=== PATIENT | female | born 1940 | race Caucasian/White ===

== ENCOUNTER 2017-01-06 12:32 | Inpatient (IN) | payer MEDICARE, OTHER ==
[~2017-01-06] VITALS: Ht 165.1 cm; Wt 83.9 kg
[2017-01-06] VITALS (11 sets, daily range): BP systolic 115–147; BP diastolic 55–70
[~2017-01-06 12:32] MED LIST: ACET-907 PO; ALBU18HF2 IH; BISO5TAB2 PO; BLOO-697 IN; BUME1TAB4 PO; CLON0.1T PO; CLON0.5T4 PO; FAMO20TA8 PO; FERR325T28 PO; FLUT1DIS5 IH; FOLI1TAB16 PO; GABA-532 PO; GLIM2TAB2 PO; GUAI118S20 PO; IBUP-1955 PO; IPRA0.2S9 IH; MECL-102 PO; MULT-24 PO; PRED10TA PO; PREG75CA PO; SITA100T PO; ZOLP10TA6 PO
[2017-01-06 13:48] LABS: BASOPHILS # (AUTO) 0.8 /CMM (0.0-0.2); BASOPHILS % (AUTO) 4.5 % (0.0-2.0); DIFF TOTAL % 100 %; EOSINOPHILS # (AUTO) 0.1 /CMM (0.0-0.7); EOSINOPHILS % (AUTO) 0.8 % (0.0-6.0); LYMPHOCYTES % (AUTO) 16.7 % (20.0-44.0); MEAN CORPUSCULAR HEMOGLOBIN 29 PG (26.0-33.0); MEAN CORPUSCULAR HGB CONC 32 g/dl (31.0-36.0); MEAN CORPUSCULAR VOLUME 89 fL (82-100); MONOCYTES # (AUTO) 0.8 /CMM (0.1-1.30); MONOCYTES % (AUTO) 4.6 % (2.0-12.0); NEUTROPHILS # (AUTO) 13.1 /CMM (1.8-8.9); NEUTROPHILS % (AUTO) 73.4 % (43.0-81.0); PLATELET COUNT (AUTO) 561 /CMM (150-450); RED BLOOD CELL COUNT(AUTO) 2.01 MIL/uL (4.0-5.2); WHITE BLOOD COUNT (AUTO) 17.8 K/uL (4.3-11.0)
[2017-01-06 13:49] LABS: HEMOGLOBIN 5.8 g/dL (11.5-14.8)
[2017-01-06 13:50] LABS: HEMATOCRIT 18 % (33-45)
[2017-01-06 13:52] LABS: ANION GAP 13 (5-14); CALCIUM, SERUM 8.6 mg/dL (8.5-10.1); CARBON DIOXIDE 28 mmol/L (21-32); CHLORIDE 98 mmol/L (98-107); CREATININE 1.3 mg/dL (0.6-1.3); GLUCOSE 207 mg/dL (74-106); POTASSIUM 4.9 mmol/L (3.5-5.1); SODIUM SERUM 134 mmol/L (136-145); UREA NITROGEN, BLOOD 29 mg/dL (7-18)
[2017-01-06 14:01] LABS: TROPONIN I < 0.017 ng/mL (0.00-0.056)
[2017-01-06] MEDS ORDERED: PANTOPRAZOLE 40 MG VIAL ONE (14:10)
[2017-01-06] MEDS ORDERED: PANTOPRAZOLE 40 MG VIAL IV ONE (14:30)
[2017-01-06 14:33] LABS: INR 0.92 (0.87-1.13); PROTHROMBIN TIME 9.7 SECS (9.5-12.7)
[2017-01-06] MEDS ORDERED: POTA-88 PO (14:58)
[2017-01-06] MEDS ORDERED: HYDR-3326 PO (14:58)
[2017-01-06] MEDS ORDERED: VALS1TAB52 PO (14:58)
[2017-01-06] MEDS ORDERED: FURO40TA5 PO (14:58)
[2017-01-06] MEDS ORDERED: MELO-270 PO (14:58)
[2017-01-06] MEDS ORDERED: PILO7.5T2 PO (14:58)
[2017-01-06] MEDS ORDERED: IPRA3AMP IH (14:58)
[2017-01-06] MEDS ORDERED: BLOOD IV SET 1 EA INFUS.SET MC ONE ×2 (16:07→21:19)
[2017-01-06] MEDS ORDERED: IV NS 0.9% 250 ML IV ONE ×2 (16:07→21:19)
[2017-01-06] MEDS: MORPHINE SULFATE INJ 2 MG/ML DISP.SYRIN IV PRN (17:09)
[2017-01-06 17:36] LABS: LYMPHOCYTES % (MANUAL) 18 % (16-48)
[2017-01-06 17:43] LABS: PARTIAL THROMBOPLASTIN TIME < 20 SEC (23-34)
[2017-01-06] MEDS ORDERED: Z GUARD REMEDY 2 OZ OINT TP PRN (19:30)
[2017-01-06] MEDS ORDERED: MAGNESIUM HYDROXIDE 30 ML UDC PO PRN (19:30)
[2017-01-06] MEDS ORDERED: ONDANSETRON HCL/PF 4 MG/2 ML VIAL IVP PRN (19:30)
[2017-01-06] MEDS ORDERED: ACETAMINOPHEN 325 MG TABLET PO PRN (19:30)
[2017-01-06] MEDS ORDERED: MAG HYDROX/AL HYDROX/SIMETH 30 ML UDC PO PRN (19:30)
[2017-01-06] MEDS ORDERED: Medication Not On Formulary EA (Ipratropium/Albuterol Sulfate (Duoneb 2.5-0.5 Mg/3 Ml So IH PRN (20:00)
[2017-01-06] MEDS ORDERED: CLONIDINE HCL 0.1 MG TABLET PO PRN (20:00)
[2017-01-06] MEDS ORDERED: LORAZEPAM INJ 2 MG/ML VIAL ONE (22:20)
[2017-01-06] MEDS: LORAZEPAM INJ 2 MG/ML VIAL IV PRN (23:49)
[2017-01-07] VITALS (11 sets, daily range): BP systolic 138–166; BP diastolic 55–87
[2017-01-07] MEDS ORDERED: PANTOPRAZOLE 40 MG VIAL ONE (02:21)
[2017-01-07] MEDS: PANTOPRAZOLE 40 MG VIAL IV SCH ×3 (02:27→21:38)
[2017-01-07] MEDS ORDERED: PANTOPRAZOLE 40 MG TABLET.DR PO SCH (07:30)
[2017-01-07 07:41] LABS: BASOPHILS % (AUTO) 0.1 % (0.0-2.0); DIFF TOTAL % 100 %; EOSINOPHILS % (AUTO) 0.2 % (0.0-6.0); HEMATOCRIT 30 % (33-45); HEMOGLOBIN 9.9 g/dL (11.5-14.8); LYMPHOCYTES # (AUTO) 1.7 /CMM (0.8-4.8); LYMPHOCYTES % (AUTO) 12.1 % (20.0-44.0); MEAN CORPUSCULAR HEMOGLOBIN 31 PG (26.0-33.0); MEAN CORPUSCULAR HGB CONC 33 g/dl (31.0-36.0); MEAN CORPUSCULAR VOLUME 91 fL (82-100); MONOCYTES # (AUTO) 1.1 /CMM (0.1-1.30); MONOCYTES % (AUTO) 7.5 % (2.0-12.0); NEUTROPHILS # (AUTO) 11.4 /CMM (1.8-8.9); NEUTROPHILS % (AUTO) 80.1 % (43.0-81.0); PLATELET COUNT (AUTO) 450 /CMM (150-450); RED BLOOD CELL COUNT(AUTO) 3.23 MIL/uL (4.0-5.2); WHITE BLOOD COUNT (AUTO) 14.2 K/uL (4.3-11.0)
[2017-01-07 08:00] LABS: CALCIUM, SERUM 8.7 mg/dL (8.5-10.1); PHOSPHORUS 3.2 mg/dL (2.5-4.9); POTASSIUM 4.6 mmol/L (3.5-5.1)
[2017-01-07] MEDS: clonazePAM 0.5 MG TABLET PO SCH ×3 (09:00→16:39)
[2017-01-07] MEDS: predniSONE 10 MG TABLET PO SCH ×2 (09:00→16:39)
[2017-01-07] MEDS ORDERED: Medication Not On Formulary EA (Valsartan/Hydrochlorothiazide (Diovan Hct 320-12.5 Mg Ta PO SCH (09:00)
[2017-01-07] MEDS ORDERED: FLUTICASONE/SALMETEROL DISKUS IH SCH (09:00)
[2017-01-07] MEDS ORDERED: MELOXICAM 7.5 MG TABLET PO SCH (09:00)
[2017-01-07] MEDS: MORPHINE SULFATE INJ 2 MG/ML DISP.SYRIN IV PRN ×2 (09:50→15:05)
[2017-01-07] MEDS: BLOOD SUGAR DIAGNOSTIC 1 EACH STRIP IN SCH ×2 (10:05→16:40)
[2017-01-07 10:14] LABS: THYROID STIMULATING HORMONE 0.511 uIU/mL (0.358-3.74); URIC ACID 7.1 mg/dL (2.6-7.2)
[2017-01-07 13:35] LABS: IRON, SERUM 45 ug/dl (50-175); PERCENT SATURATION 12 % (14-33); TOTAL IRON BINDING CAPACITY 379 ug/dl (250-450)
[2017-01-07] MEDS ORDERED: PEG 3350/NA SULF,BICARB,CL/KCL 4,000 ML BOTTLE PO ONE (14:00)
[2017-01-07] MEDS: BISOPROLOL FUMARATE 5 MG TABLET PO SCH ×2 (14:19→16:39)
[2017-01-07] MEDS: FERROUS SULFATE (325 MG) 325 MG/TAB TABLET PO SCH ×2 (14:20→16:39)
[2017-01-07] MEDS: MULTIVITAMINS,THERAPEUTIC 1 UDTAB TABLET PO SCH (14:21)
[2017-01-07] MEDS: HYDROCHLOROTHIAZIDE 25 MG TABLET PO SCH (14:21)
[2017-01-07] MEDS: SITAGLIPTIN PHOSPHATE 50 MG TABLET PO SCH (14:22)
[2017-01-07] MEDS: VALSARTAN 80 MG TABLET PO SCH (14:22)
[2017-01-07] MEDS: IPRATROPIUM NEB FS 0.5 MG/2.5 ML AMPUL.NEB NEB SCH ×2 (15:50→20:03)
[2017-01-07] MEDS: ALBUTEROL FS 2.5 MG/3 ML VIAL.NEB NEB SCH ×2 (15:50→20:04)
[2017-01-07] MEDS: FLUTICASONE/SALMETEROL DISKUS IH SCH (16:40)
[2017-01-07] MEDS ORDERED: PILOCARPINE HCL 5 MG TABLET PO SCH ×2 (17:00)
[2017-01-07] MEDS: ZOLPIDEM TARTRATE 5 MG TABLET PO PRN (22:30)
[2017-01-07] MEDS: HYDROCODONE/APAP 5/325MG 1 EACH TABLET PO PRN (23:45)
[2017-01-08] VITALS (10 sets, daily range): BP systolic 126–161; BP diastolic 54–82
[2017-01-08] MEDS: MORPHINE SULFATE INJ 2 MG/ML DISP.SYRIN IV PRN ×4 (01:00→22:48)
[2017-01-08] MEDS: ALBUTEROL FS 2.5 MG/3 ML VIAL.NEB NEB SCH ×4 (01:33→19:35)
[2017-01-08] MEDS: IPRATROPIUM NEB FS 0.5 MG/2.5 ML AMPUL.NEB NEB SCH ×4 (01:33→19:35)
[2017-01-08] MEDS: LORAZEPAM INJ 2 MG/ML VIAL IV PRN (01:53)
[2017-01-08 07:10] LABS: CALCIUM, SERUM 9.1 mg/dL (8.5-10.1); CREATININE 0.9 mg/dL (0.6-1.3); POTASSIUM 3.8 mmol/L (3.5-5.1)
[2017-01-08 08:20] LABS: BASOPHILS % (AUTO) 0.4 % (0.0-2.0); DIFF TOTAL % 100 %; EOSINOPHILS % (AUTO) 0.2 % (0.0-6.0); HEMATOCRIT 32 % (33-45); HEMOGLOBIN 10.6 g/dL (11.5-14.8); LYMPHOCYTES # (AUTO) 1.5 /CMM (0.8-4.8); LYMPHOCYTES % (AUTO) 13.1 % (20.0-44.0); MEAN CORPUSCULAR HEMOGLOBIN 30 PG (26.0-33.0); MEAN CORPUSCULAR HGB CONC 33 g/dl (31.0-36.0); MEAN CORPUSCULAR VOLUME 91 fL (82-100); MONOCYTES % (AUTO) 8.6 % (2.0-12.0); NEUTROPHILS # (AUTO) 9.2 /CMM (1.8-8.9); NEUTROPHILS % (AUTO) 77.7 % (43.0-81.0); PLATELET COUNT (AUTO) 439 /CMM (150-450); RED BLOOD CELL COUNT(AUTO) 3.52 MIL/uL (4.0-5.2); WHITE BLOOD COUNT (AUTO) 11.8 K/uL (4.3-11.0)
[2017-01-08] MEDS: FLUTICASONE/SALMETEROL DISKUS IH SCH ×2 (08:42→16:34)
[2017-01-08] MEDS: PANTOPRAZOLE 40 MG VIAL IV SCH ×2 (08:42→21:05)
[2017-01-08] MEDS: FERROUS SULFATE (325 MG) 325 MG/TAB TABLET PO SCH ×2 (09:00→16:10)
[2017-01-08] MEDS: VALSARTAN 80 MG TABLET PO SCH (09:00)
[2017-01-08] MEDS: BISOPROLOL FUMARATE 5 MG TABLET PO SCH ×2 (09:00→16:35)
[2017-01-08] MEDS: SITAGLIPTIN PHOSPHATE 50 MG TABLET PO SCH (09:00)
[2017-01-08] MEDS: HYDROCHLOROTHIAZIDE 25 MG TABLET PO SCH (09:00)
[2017-01-08] MEDS: clonazePAM 0.5 MG TABLET PO SCH ×3 (09:00→16:10)
[2017-01-08] MEDS: predniSONE 10 MG TABLET PO SCH ×2 (09:00→16:10)
[2017-01-08] MEDS: MULTIVITAMINS,THERAPEUTIC 1 UDTAB TABLET PO SCH (09:00)
[2017-01-08] MEDS: BLOOD SUGAR DIAGNOSTIC 1 EACH STRIP IN SCH ×2 (09:25→16:47)
[2017-01-08] MEDS: SUCRALFATE 1 G/10 ML UDC PO SCH ×2 (16:30→21:05)
[2017-01-08] MEDS: ZOLPIDEM TARTRATE 5 MG TABLET PO PRN (21:05)
[2017-01-09] MEDS: LORAZEPAM INJ 2 MG/ML VIAL IV PRN (00:50)
[2017-01-09] MEDS: ALBUTEROL FS 2.5 MG/3 ML VIAL.NEB NEB SCH ×2 (01:43→07:41)
[2017-01-09] MEDS: IPRATROPIUM NEB FS 0.5 MG/2.5 ML AMPUL.NEB NEB SCH ×2 (01:44→07:41)
[2017-01-09] MEDS: MORPHINE SULFATE INJ 2 MG/ML DISP.SYRIN IV PRN (03:50)
[2017-01-09] MEDS: HYDROCODONE/APAP 5/325MG 1 EACH TABLET PO PRN (05:35)
[2017-01-09 06:34] LABS: DIFF TOTAL % 100 %; EOSINOPHILS % (AUTO) 0.3 % (0.0-6.0); HEMATOCRIT 29 % (33-45); HEMOGLOBIN 9.7 g/dL (11.5-14.8); LYMPHOCYTES # (AUTO) 1.2 /CMM (0.8-4.8); LYMPHOCYTES % (AUTO) 10.6 % (20.0-44.0); MEAN CORPUSCULAR HEMOGLOBIN 31 PG (26.0-33.0); MEAN CORPUSCULAR HGB CONC 33 g/dl (31.0-36.0); MEAN CORPUSCULAR VOLUME 92 fL (82-100); MONOCYTES # (AUTO) 0.7 /CMM (0.1-1.30); MONOCYTES % (AUTO) 6.1 % (2.0-12.0); NEUTROPHILS # (AUTO) 9.5 /CMM (1.8-8.9); PLATELET COUNT (AUTO) 396 /CMM (150-450); RED BLOOD CELL COUNT(AUTO) 3.19 MIL/uL (4.0-5.2); WHITE BLOOD COUNT (AUTO) 11.5 K/uL (4.3-11.0)
[2017-01-09 08:00] VITALS: BP 149/65
[2017-01-09] MEDS: BISOPROLOL FUMARATE 5 MG TABLET PO SCH (09:00)
[2017-01-09] MEDS: SITAGLIPTIN PHOSPHATE 50 MG TABLET PO SCH (09:00)
[2017-01-09] MEDS: FLUTICASONE/SALMETEROL DISKUS IH SCH (09:20)
[2017-01-09] MEDS: MULTIVITAMINS,THERAPEUTIC 1 UDTAB TABLET PO SCH (09:21)
[2017-01-09] MEDS: FERROUS SULFATE (325 MG) 325 MG/TAB TABLET PO SCH (09:21)
[2017-01-09] MEDS: predniSONE 10 MG TABLET PO SCH (09:21)
[2017-01-09] MEDS: HYDROCHLOROTHIAZIDE 25 MG TABLET PO SCH (09:21)
[2017-01-09 09:22] VITALS: BP 149/65
[2017-01-09] MEDS: clonazePAM 0.5 MG TABLET PO SCH (09:22)
[2017-01-09] MEDS: VALSARTAN 80 MG TABLET PO SCH (09:22)
[2017-01-09] MEDS: SUCRALFATE 1 G/10 ML UDC PO SCH ×2 (09:23→12:40)
[2017-01-09] MEDS: PANTOPRAZOLE 40 MG VIAL IV SCH (09:23)
[2017-01-09] MEDS: BLOOD SUGAR DIAGNOSTIC 1 EACH STRIP IN SCH (09:23)
== END 2017-01-09 13:15 | disposition home health service (06) | DRG 377 ==
LOC: ER 12:35 → TELE 14:51 → MED 01-07 14:45
PROVIDERS: ADMIT Family Medicine; ATTEND Family Medicine
PROC: 30233N1 Transfusion of Nonautologous Red Blood Cells into Peripheral Vein, Percutaneous Approach (ICD-10-PCS; 2017-01-06)
PROC: 0DB68ZX Excision of Stomach, Via Natural or Artificial Opening Endoscopic, Diagnostic (ICD-10-PCS; principal; 2017-01-08 12:31)
PROC: 0DBH8ZX Excision of Cecum, Via Natural or Artificial Opening Endoscopic, Diagnostic (ICD-10-PCS; 2017-01-08 12:31)
DX: K25.4 Chronic or unspecified gastric ulcer with hemorrhage (principal); N17.0 Acute kidney failure with tubular necrosis; D62 Acute posthemorrhagic anemia; Z87.11 Personal history of peptic ulcer disease; F41.9 Anxiety disorder, unspecified; F32.9 Major depressive disorder, single episode, unspecified; E11.9 Type 2 diabetes mellitus without complications; E03.9 Hypothyroidism, unspecified; E66.9 Obesity, unspecified; J44.9 Chronic obstructive pulmonary disease, unspecified; I10 Essential (primary) hypertension; D72.829 Elevated white blood cell count, unspecified; G89.29 Other chronic pain; J45.909 Unspecified asthma, uncomplicated; M19.90 Unspecified osteoarthritis, unspecified site; Z68.30 Body mass index [BMI] 30.0-30.9, adult; R29.6 Repeated falls
CPT/HCPCS: 36415; 71010-TC; 80048-TC; 80061-TC; 82378; 82728-TC; 82746; 82962-TC; 83540-TC; 83615-TC; 83735-TC; 84100-TC; 84443-TC; 84484-TC; 84550-TC; 85025-TC; 85045-TC; 85730-TC; 86850-TC; 86921-TC; 87081-TC; 88305-TC; 88313-TC; 88342; A4606; C9113; J2060; J2270; J7050; P9016-BL; Z7610

== ENCOUNTER 2017-02-07 06:14 | Emergency (ER) | payer MEDICARE, OTHER ==
[~2017-02-07] VITALS: Ht 160 cm; Wt 71.2 kg
[~2017-02-07 06:14] MED LIST changes: -ACET-907 PO; -ALBU18HF2 IH; -FAMO20TA8 PO; -FOLI1TAB16 PO; -GABA-532 PO; -GLIM2TAB2 PO; -GUAI118S20 PO; +HYDR-3326 PO; -IBUP-1955 PO; -IPRA0.2S9 IH; +IPRA3AMP IH; -MECL-102 PO; +PILO7.5T2 PO; +POTA-88 PO; -PREG75CA PO; +VALS1TAB52 PO; -ZOLP10TA6 PO
--- NOTE | 2017-02-07 06:14 | NUR ---
BB FAMILY MEMBER FROM HOME FOR LEFT CALF PAIN SINCE 3AM TODAY. NAD NOTED. PT AAO X4, DOMINICAN SPEAKER, FAMILY AT BEDSIDE. PT PLACED IN GOWN AND MONITOR. DR DALE AT BEDSIDE FOR EVAL.
--- NOTE | 2017-02-07 06:55 | NUR ---
DR. DALE IS AT THE BEDSIDE.
--- NOTE | 2017-02-07 07:05 | NUR ---
REPORT GIVEN TO ROSSY LEO FOR AUGUST.
--- NOTE | 2017-02-07 07:13 | NUR ---
CALLED RADIOLOGY FOR VENOUS DUPLEX
--- NOTE | 2017-02-07 07:14 | NUR ---
REED POLISHER ETA: 1 HOUR
[2017-02-07 08:24] LABS: BASOPHILS % (AUTO) 0.4 % (0.0-2.0); HEMATOCRIT 31 % (33-45); HEMOGLOBIN 10.4 g/dL (11.5-14.8); LYMPHOCYTES % (AUTO) 9.1 % (20.0-44.0); MEAN CORPUSCULAR HEMOGLOBIN 29 PG (26.0-33.0); MEAN CORPUSCULAR HGB CONC 33 g/dl (31.0-36.0); MEAN CORPUSCULAR VOLUME 88 fL (82-100); MONOCYTES # (AUTO) 0.6 /CMM (0.1-1.30); MONOCYTES % (AUTO) 5.2 % (2.0-12.0); NEUTROPHILS # (AUTO) 9.2 /CMM (1.8-8.9); NEUTROPHILS % (AUTO) 85.3 % (43.0-81.0); PLATELET COUNT (AUTO) 352 /CMM (150-450); RDW COEFFICIENT OF VARIATION 15.9 (11.5-15.0); RED BLOOD CELL COUNT(AUTO) 3.56 MIL/uL (4.0-5.2); WHITE BLOOD COUNT (AUTO) 10.8 K/uL (4.3-11.0)
[2017-02-07 08:34] LABS: CALCIUM, SERUM 9.1 mg/dL (8.5-10.1); CARBON DIOXIDE 30 mmol/L (21-32); CHLORIDE 93 mmol/L (98-107); CREATININE 0.9 mg/dL (0.6-1.3); GLUCOSE 134 mg/dL (74-106); POTASSIUM 3.7 mmol/L (3.5-5.1); SODIUM SERUM 129 mmol/L (136-145); UREA NITROGEN, BLOOD 12 mg/dL (7-18)
[2017-02-07 08:41] LABS: TROPONIN I < 0.017 ng/mL (0.00-0.056)
[2017-02-07 08:46] LABS: ALANINE AMINOTRANSFERASE 21 U/L (12-78); ALBUMIN 3.3 g/dL (3.4-5.0); ALKALINE PHOSPHATASE 57 U/L (46-116); ASPARTATE AMINOTRANSFERASE 11 U/L (15-37); B-TYPE NATRIURETIC PEPTIDE 775 PG/ML (0-125); BILIRUBIN,DIRECT 0.1 mg/dL (0.0-0.2); BILIRUBIN,TOTAL 0.3 mg/dL (0.2-1.0); INR 0.93 (0.87-1.13); PROTHROMBIN TIME 9.9 SECS (9.5-12.7); TOTAL PROTEIN, SERUM 6.7 g/dL (6.4-8.2)
--- NOTE | 2017-02-07 08:55 | NUR ---
US DOPPLER AT BEDSIDE.
[2017-02-07] MEDS ORDERED: LORAZEPAM 1 MG TABLET ONE (09:00)
[2017-02-07] MEDS ORDERED: LORAZEPAM 0.5 MG TABLET PO ONE (09:00)
[2017-02-07 09:04] LABS: APPEARANCE,URINE CLEAR (CLEAR); BILIRUBIN,URINE NEGATIVE (NEGATIVE); BLOOD, URINE NEGATIVE Ery/uL (NEGATIVE); COLOR,URINE YELLOW (YELLOW); KETONES,URINE NEGATIVE (NEGATIVE); LEUKOCYTE ESTERASE ,URINE TRACE (NEGATIVE); NITRITE, URINE NEGATIVE (NEGATIVE); PH,URINE 6.5 (5.0-8.0); PROTEIN,URINE NEGATIVE (NEGATIVE); UGLUCOSE NEGATIVE (NEGATIVE); UROBILINOGEN,URINE 0.2 EU/dL (0.2)
[2017-02-07 09:10] LABS: ADD URINE CULTURE NO; BACTERIA,URINE None seen /HPF (None Seen); RBC,URINE NONE SEEN /HPF (0-2); SQUAMOUS EPITHELIAL CELL,UR Few /HPF (None Seen); WBC,URINE 0-2 /HPF (0-3)
[2017-02-07] MEDS ORDERED: FUROSEMIDE 40 MG/4 ML VIAL IV ONE (09:30)
[2017-02-07] MEDS ORDERED: FUROSEMIDE 40 MG/4 ML VIAL ONE (09:33)
[2017-02-07 09:51] VITALS: BP 152/67
== END 2017-02-07 10:09 | disposition home or self-care (01) ==
LOC: ER 06:14
DX: M79.89 Other specified soft tissue disorders (principal); M79.605 Pain in left leg; D64.9 Anemia, unspecified; I10 Essential (primary) hypertension; I50.9 Heart failure, unspecified; K21.9 Gastro-esophageal reflux disease without esophagitis; M19.90 Unspecified osteoarthritis, unspecified site
CPT/HCPCS: 36415; 71010-TC; 80048-TC; 80076-TC; 81000-TC; 83880; 84484-TC; 85025-TC; 85730-TC; 93971-TC; A4606; J1940; Z7610

== ENCOUNTER 2017-02-19 07:33 | Inpatient (IN) | payer MEDICARE, OTHER ==
[~2017-02-19] VITALS: Ht 167.6 cm; Wt 63.0 kg
--- NOTE | 2017-02-19 07:33 | NUR ---
PT BIB FAMILY C/O OF SHORTNESS OF BREATH SINCE LAST NIGHT. PT CANT SLEEP DUE TO SOB. PT AMBULATORY. PLACED ON MONITOR. VSS. AWAITING MD ORDER.
--- NOTE | 2017-02-19 08:20 | NUR ---
dr roque called to ICU, verbal order to start HHN, alb=5/atrovent=.5
[2017-02-19] MEDS ORDERED: ALBUTEROL FS 2.5 MG/3 ML VIAL.NEB ONE (08:22)
[2017-02-19] MEDS ORDERED: IPRATROPIUM NEB FS 0.5 MG/2.5 ML AMPUL.NEB ONE (08:22)
[2017-02-19] MEDS ORDERED: IPRATROPIUM NEB FS 0.5 MG/2.5 ML AMPUL.NEB NEB ONE (09:00)
[2017-02-19] MEDS ORDERED: ALBUTEROL FS 2.5 MG/0.5 ML VIAL.NEB NEB ONE (09:00)
[2017-02-19] MEDS ORDERED: ASPIRIN 325 MG TABLET ONE (09:02)
[2017-02-19] MEDS ORDERED: predniSONE 20 MG TABLET ONE (09:03)
--- NOTE | 2017-02-19 09:15 | NUR ---
LAB AT BEDSIDE COLLECTING BLOOD SAMPLE
--- NOTE | 2017-02-19 09:26 | NUR ---
XRAY AT BEDSIDE
[2017-02-19 09:30] LABS: BASOPHILS # (AUTO) 0.1 /CMM (0.0-0.2); BASOPHILS % (AUTO) 0.4 % (0.0-2.0); EOSINOPHILS % (AUTO) 0.1 % (0.0-6.0); HEMATOCRIT 33 % (33-45); HEMOGLOBIN 10.6 g/dL (11.5-14.8); LYMPHOCYTES # (AUTO) 1.2 /CMM (0.8-4.8); LYMPHOCYTES % (AUTO) 7.7 % (20.0-44.0); MEAN CORPUSCULAR HEMOGLOBIN 29 PG (26.0-33.0); MEAN CORPUSCULAR HGB CONC 33 g/dl (31.0-36.0); MEAN CORPUSCULAR VOLUME 89 fL (82-100); MONOCYTES # (AUTO) 0.2 /CMM (0.1-1.30); MONOCYTES % (AUTO) 1.3 % (2.0-12.0); NEUTROPHILS # (AUTO) 13.8 /CMM (1.8-8.9); NEUTROPHILS % (AUTO) 90.5 % (43.0-81.0); PLATELET COUNT (AUTO) 424 /CMM (150-450); RDW COEFFICIENT OF VARIATION 16.5 (11.5-15.0); RED BLOOD CELL COUNT(AUTO) 3.66 MIL/uL (4.0-5.2); WHITE BLOOD COUNT (AUTO) 15.2 K/uL (4.3-11.0)
[2017-02-19] MEDS ORDERED: FUROSEMIDE 40 MG TABLET PO ONE (09:30)
[2017-02-19] MEDS ORDERED: predniSONE 20 MG TABLET PO ONE (09:30)
[2017-02-19] MEDS ORDERED: ASPIRIN 325 MG TABLET PO ONE (09:30)
[2017-02-19] MEDS ORDERED: FUROSEMIDE 40 MG TABLET ONE (09:35)
[2017-02-19 09:46] LABS: CALCIUM, SERUM 9.3 mg/dL (8.5-10.1); CARBON DIOXIDE 30 mmol/L (21-32); CHLORIDE 95 mmol/L (98-107); GLUCOSE 167 mg/dL (74-106); POTASSIUM 5.1 mmol/L (3.5-5.1); SODIUM SERUM 132 mmol/L (136-145); UREA NITROGEN, BLOOD 20 mg/dL (7-18)
[2017-02-19 09:54] LABS: TROPONIN I < 0.017 ng/mL (0.00-0.056)
[2017-02-19 09:59] LABS: B-TYPE NATRIURETIC PEPTIDE 875 PG/ML (0-125)
[2017-02-19] MEDS ORDERED: IV SET PRIMARY PUMP SET 1 EA INFUS.SET MC ONE (10:55)
[2017-02-19] MEDS ORDERED: IV NS 0.9% 1,000 ML ONE (10:55)
[2017-02-19] MEDS ORDERED: CEFTRIAXONE 1GM BAG (ER ONLY) 50 ML IV ONE (10:55)
[2017-02-19] MEDS ORDERED: AZITHROMYCIN 500 MG in IV D5W 250 ML IV ONE (11:00)
[2017-02-19] MEDS ORDERED: CEFTRIAXONE 1GM BAG (ER ONLY) 1 GM/50 ML PIGGYBACK IV ONE (11:00)
[2017-02-19] MEDS ORDERED: IV NS 0.9% 1,000 ML BAG IV ONE (11:00)
--- NOTE | 2017-02-19 11:17 | NUR ---
MAY #22 IV ACCESS BLOOD SAMPLE COLLECTED SENT TO LAB.
--- NOTE | 2017-02-19 11:43 | NUR ---
PANEL ON-CALL PAGED AGAIN
[2017-02-19] MEDS ORDERED: PILO5TAB PO (11:58)
[2017-02-19] MEDS ORDERED: ESCI10TA PO (11:58)
[2017-02-19] MEDS ORDERED: ZOLP10TA2 PO (11:58)
[2017-02-19] MEDS ORDERED: PREG150C PO (11:58)
[2017-02-19] MEDS ORDERED: FAMO20TA8 PO (11:58)
--- NOTE | 2017-02-19 12:01 | NUR ---
GAVE REPORT TO VIANCA BLAIR MEDSUR 112-1 DR KLEIN ADMITTING .
[2017-02-19 12:02] LABS: APPEARANCE,URINE CLEAR (CLEAR); PROTEIN,URINE NEGATIVE (NEGATIVE); UGLUCOSE NEGATIVE (NEGATIVE)
[2017-02-19 12:03] LABS: BILIRUBIN,URINE NEGATIVE (NEGATIVE); BLOOD, URINE TRACE Ery/uL (NEGATIVE); KETONES,URINE NEGATIVE (NEGATIVE); NITRITE, URINE NEGATIVE (NEGATIVE); UROBILINOGEN,URINE 0.2 EU/dL (0.2)
[2017-02-19 12:04] LABS: LEUKOCYTE ESTERASE ,URINE 1+ (NEGATIVE)
[2017-02-19 12:05] LABS: COLOR,URINE Light yellow (YELLOW)
[2017-02-19 12:06] LABS: ADD URINE CULTURE YES; BACTERIA,URINE 1+ /HPF (None Seen); SQUAMOUS EPITHELIAL CELL,UR Few /HPF (None Seen)
--- NOTE | 2017-02-19 12:12 | NUR ---
PT TRANSFER TO [facility] VIA MEDARDO BY JAE
[2017-02-19 12:30] VITALS: BP 129/55
--- NOTE | 2017-02-19 12:30 | NUR ---
RN NOTES RECEIVED PATIENT FROM ER ALERT, AWAKE, ORIENTED X3 WITH BREATHING NORMAL, EVEN AND UNLABORED. NO SOB NOTED. ON ROOM AIR, SATURATING WELL. NO ACUTE DISTRESS NOTED. IV IS PATENT AND INTACT, NO INFILTRATION NOTED. BOWEL SOUND PRESENT. PULSES PRESENT. REFUSED FOR SKIN ASSESSMENT AND PICTURE. DAUGHTER AT BEDSIDE. R/B EXPLAINED. BUT STILL REFUSED STRONGLY. DR KLEIN MADE AWARE. KEPT CLEAN, DRY AND COMFORTABLE. ALL NEEDS ATTENDED. SAFETY MEASURE OBSERVED. CALL LIGHT WITH IN REACH. WILL CONT TO MONITOR.
[2017-02-19] MEDS ORDERED: IPRATROPIUM NEB FS 0.5 MG/2.5 ML AMPUL.NEB NEB PRN (13:00)
[2017-02-19] MEDS ORDERED: MAG HYDROX/AL HYDROX/SIMETH 30 ML UDC PO PRN (13:00)
[2017-02-19] MEDS ORDERED: ALBUTEROL FS 2.5 MG/3 ML VIAL.NEB NEB PRN (13:00)
[2017-02-19] MEDS ORDERED: ONDANSETRON HCL/PF 4 MG/2 ML VIAL IVP PRN (13:00)
[2017-02-19] MEDS ORDERED: Z GUARD REMEDY 2 OZ OINT TP PRN ×2 (13:00→15:30)
[2017-02-19] MEDS ORDERED: ZOLPIDEM TARTRATE 5 MG TABLET PO PRN (13:00)
[2017-02-19] MEDS ORDERED: CLONIDINE HCL 0.1 MG TABLET PO PRN (13:00)
[2017-02-19] MEDS ORDERED: DEXTROSE 50%-WATER 50 ML DISP.SYRIN IV PRN (13:00)
[2017-02-19] MEDS ORDERED: MAGNESIUM HYDROXIDE 30 ML UDC PO PRN (13:00)
[2017-02-19 16:00] VITALS: BP 155/66
[2017-02-19] MEDS ORDERED: PILOCARPINE 5 MG PO SCH ×2 (17:00)
[2017-02-19] MEDS ORDERED: POTASSIUM CHLORIDE 20 MEQ TAB.PRT.SR PO SCH (17:00)
[2017-02-19] MEDS ORDERED: PHENAZOPYRIDINE HCL 200 MG TABLET PO PRN (17:30)
[2017-02-19] MEDS: FAMOTIDINE (20 MG) 20 MG TABLET PO SCH (17:31)
[2017-02-19] MEDS: FERROUS SULFATE (325 MG) 325 MG/TAB TABLET PO SCH (17:31)
[2017-02-19] MEDS: predniSONE 10 MG TABLET PO SCH (17:31)
[2017-02-19] MEDS: PREGABALIN 25 MG CAPSULE PO SCH (17:32)
[2017-02-19] MEDS: BLOOD SUGAR DIAGNOSTIC 1 EACH STRIP IN SCH ×2 (17:40→22:00)
[2017-02-19] MEDS: BISOPROLOL FUMARATE 5 MG TABLET PO SCH (19:16)
--- NOTE | 2017-02-19 19:45 | NUR ---
RN NOTES PATIENT ENDORSED TO NEXT SHIFT IN STABLE CONDITION FOR CONTINUITY OF CARE.
--- NOTE | 2017-02-19 19:46 | NUR ---
RN INITIAL NOTES RECEIVED PATIENT IN BED, AWAKE, ALERT AND ORIENTED X3, IRISH SPEAKING, WITH DAUGHTER AT BEDSIDE, ABLE TO TRANSLATE FRENCH/IRISH. PATIENT DENIES PAIN, DISCOMFORT, OR SHORTNESS OF BREATH, BUT STATES SHE WOULD LIKE TO TAKE HER SCHEDULED AMBIEN AT AN EARLIER TIME. BREATHING EVEN AND NONLABORED, TOLERATING ROOM AIR WELL. IV SITE PATENT AND INTACT, FLUSHED WITH NS, FREE FROM ANY S/S OF INFILTRATION OR PHLEBITIS. CALL LIGHT LEFT WITHIN EASY REACH, BED IN LOWEST AND LOCKED POSITION. WILL CONTINUE TO CLOSELY MONITOR THE PATIENT Addendum: 02/19/17 at 2352 by ANDREEA LANDRY RN PATIENT IS ALERT, ABLE TO VERBALIZE NEEDS IN IRISH, BUT IS DISORIENTED, CONFUSED, FORGETFULL.
[2017-02-19 20:00] VITALS: BP 134/65
--- NOTE | 2017-02-19 20:20 | NUR ---
RN NOTES PATIENT REQUESTING FOR AMBIEN. AMBIEN ADMINISTERED, PATIENT'S DAUGHTER BHAVYA AT BEDSIDE. WILL CONTINUE TO CLOSELY MONITOR
[2017-02-19] MEDS ORDERED: ZOLPIDEM TARTRATE 10 MG TABLET PO SCH (22:00)
[2017-02-19] MEDS: ACETAMINOPHEN 325 MG TABLET PO PRN (22:52)
--- NOTE | 2017-02-19 23:52 | NUR ---
RN NOTES PATIENT AWAKE, CONFUSED, ASKING FOR MEDICATION TO HELP SLEEP. GREEK SPEAKING STAFF AT BEDSIDE TO AID IN TRANSLATION. ATTEMPTED TO REORIENT THE PATIENT, BUT SHE REMAINS CONFUSED AT THIS TIME. CALLED AND SPOKE TO PATIENT'S DAUGHTER BHAVYA, WHO AGREES THAT THE PATIENT IS CONFUSED. BHAVYA SPOKE TO THE PATIENT OVER THE PHONE TO ATTEMPT TO REORIENT THE PATIENT. WILL CONTINUE TO CLOSELY MONITOR
--- NOTE | 2017-02-20 | NUR ---
RN NOTES PATIENT REFUSING VITAL SIGNS TO BE CHECKED. WILL CONTINUE TO CLOSELY MONITOR
--- NOTE | 2017-02-20 00:14 | NUR ---
RN NOTES - SITTER PATIENT CONTINUES TO HAVE PERIODS OF CONFUSION. ATTEMPTED MULTIPLE TIMES TO REORIENT THE PATIENT, ALL ATTEMPTS INEFFECTIVE. PATIENT CONTINUES TO TRY TO GET OUT OF BED, HIGH RISK FOR FALLS DUE TO UNSTEADY GAIT AND PERIODS OF CONFUSION. DR JESSICA RAMIREZ MADE AWARE, WITH NEW ORDER FOR 1:1 SITTER
[2017-02-20 04:00] VITALS: BP 150/72
--- NOTE | 2017-02-20 06:49 | NUR ---
RN CLOSING NOTES PATIENT SLEEPING IN BED AT THIS TIME, 1:1 SITTER REMAINS AT BEDSIDE. PATIENT REFUSED AM LABS. EXPLAINED RISKS/CONSEQUENCES, WITH VERBALIZATION OF UNDERSTANDING, BUT PATIENT IS FORGETFUL, THEN REFUSES LAB WORK. SUGGESTED TO LAB TO TRY AGAIN WHEN FAMILY IS AT BEDSIDE. WILL ENDORSE THE PATIENT TO THE AM SHIFT NURSE FOR AUGUST.
--- NOTE | 2017-02-20 07:25 | NUR ---
RN INITIAL NOTES PT IN BED, A/O X1, MAORI SPEAKING, FORGETFUL, 1:1 SITTER AT BEDSIDE. HOB ELEVATED 35 DEGREES, ON RA, TOLERATING WELL, NO SOB, COMPLAINED OF LEFT SHOULDER PAIN TO SITTER, 5/10, BUT WHEN ASKED BY RN PT STATES SHE'S FINE. HAS BRP WITH ASSIST. PT HAS LLE SKIN TEAR, CDI, NO SIGNS OF INFECTION NOTED. IV ON LF 22G SL, SALINE FLUSHED, CDI, NO SIGNS OF INFECTION/INFILTRATION NOTED. CALL LIGHT WITHIN EASY REACH, SAFETY MEASURE MAINTAINED, WILL CONTINUE TO MONITOR AND FOLLOW MD ORDERS. PT IN OVERALL STABLE CONDITION.
--- NOTE | 2017-02-20 07:30 | NUR ---
RN NOTES PTS AT BEDSIDE. PTS BG IS 136, PT REFUSES INSULIN, EXPLAINED PROS, PT STILL REFUSES; ALSO REFUSES.
[2017-02-20 08:00] VITALS: BP 155/71
[2017-02-20] MEDS: PREGABALIN 25 MG CAPSULE PO SCH ×2 (08:39→17:33)
[2017-02-20] MEDS: BISOPROLOL FUMARATE 5 MG TABLET PO SCH ×2 (08:39→17:33)
[2017-02-20] MEDS: ESCITALOPRAM OXALATE (10 MG) 10 MG TABLET PO SCH (08:39)
[2017-02-20] MEDS: predniSONE 10 MG TABLET PO SCH ×2 (08:39→17:32)
[2017-02-20 08:40] VITALS: BP 155/71
[2017-02-20] MEDS: FERROUS SULFATE (325 MG) 325 MG/TAB TABLET PO SCH ×2 (08:40→17:33)
[2017-02-20] MEDS: FAMOTIDINE (20 MG) 20 MG TABLET PO SCH ×2 (08:40→17:33)
[2017-02-20] MEDS ORDERED: IV NS 0.9% 250 ML IV ONE (08:45)
[2017-02-20] MEDS: BLOOD SUGAR DIAGNOSTIC 1 EACH STRIP IN SCH ×4 (08:53→22:53)
[2017-02-20] MEDS ORDERED: SECONDARY IV SET 1 EA INFUS.SET MC ONE ×2 (08:56→17:52)
[2017-02-20] MEDS ORDERED: IV SET PRIMARY PUMP SET 1 EA INFUS.SET MC ONE (08:56)
[2017-02-20] MEDS: CEFTRIAXONE 1 G in IV D5W 50 ML IV SCH (10:25)
--- NOTE | 2017-02-20 10:57 | NUR ---
RN NOTES MD DOES NOT WANT TO GIVE PT ANY ORDER FOR CHEMICAL PROPHYLAXIS. PT IS AMBULATORY.
[2017-02-20] MEDS: AZITHROMYCIN 250 MG TABLET PO SCH (12:16)
[2017-02-20] MEDS: HYDROCODONE/APAP 5/325MG 1 EACH TABLET PO PRN (15:11)
--- NOTE | 2017-02-20 15:14 | NUR ---
RN NOTES SPOKE WITH PTS REGARDING HOME MEDICATION PILOCARPINE 5MG, HE STATED HE WILL LOOK FOR IT AND BRING IT. ALSO, GAVE PT NORCO D/T COMPLAINTS OF HEADACHE, BACK PAIN, LEGS.
[2017-02-20 16:00] VITALS: BP 147/84
[2017-02-20] MEDS ORDERED: FEE PK DOSING 1 MIN EA MC ONE (17:26)
[2017-02-20] MEDS ORDERED: VANCOMYCIN 1 GM in IV D5W 250 ML IV SCH (18:00)
[2017-02-20] MEDS: VANCOMYCIN 1 GM in IV D5W 250 ML IV SCH (18:05)
--- NOTE | 2017-02-20 18:50 | NUR ---
RN NOTES FAMILY AT BEDSIDE, WHEN ASKED TO BRING IN HOME MEDICATION PILOCARPINE 5 MG, DAUGHTER STATED THAT THEY NO LONGER WANT TO GIVE HER EXCESSIVE MEDS, AND TO HOLD OFF ON MED.
--- NOTE | 2017-02-20 19:00 | NUR ---
RN NOTES PER PTS DAUGHTER THEY WANT TO STOP AMBIEN, CALLED DR. BERMAN GOT ORDER TO DISCONTINUE AMBIEN. SPOKE TO DAUGHTER THAT ALL SLEEPING MEDS HAVE A SIDE EFFECT OF HALLUCINATION. AFTER DISCUSSING BACK AND FORTH REGARDING A SLEEPING MED, DAUGHTER WANTED TO TRY MELATONIN; DAUGHTERS CAME BY STATING THAT IT WILL NOT WORK FOR HER. AFTER THE FAMILY DISCUSSED WHAT THEY WANT TO DO WITH THE SLEEPING MED. THEY STATED THEY WANT TO TRY ANY OTHER SLEEPING MED STARTING THEM ON A LOW DOSE. CONTACTED DR. BERMAN FOR ORDER, STILL AWAITING FOR RESPONSE; NIGHT CHARGE NURSE MADE AWARE, WILL ALSO RELAY IT TO THE NIGHT RN.
--- NOTE | 2017-02-20 19:04 | NUR ---
RN CLOSING NOTES PT IN BED, COMFORTABLE, IV CDI, NO SIGNS OF INFECTION/INFILTRATION, ALL MD ORDERS CARRIED OUT, TOLERATING RA WELL, DENIES CHEST PAIN, FAMILY AND 1:1 SITTER AT BEDSIDE. CALL LIGHT WITHIN EASY REACH, SAFETY MEASURES MAINTAINED, REPORT GIVEN TO NIGHT NURSE FOR AUGUST AND TO FOLLOW UP WITH SLEEPING MEDICATION.
--- NOTE | 2017-02-20 19:15 | NUR ---
RN INITIAL NOTES RECEIVED PATIENT IN BED, BED AWAKE AND ALERT, PERIODS OF CONFUSION NOTED. PATIENT WITH FAMILY AT BEDSIDE. PRIVACY PROVIDED. PATIENT WITH NO DISTRESS AT THIS TIME. L HAND G22, FLUSHED AND PATENT, NO SIGNS OF INFILTRATION. NEEDS ANTICIPATED AND MET. SAFETY AND COMFORT ENSURED. BED IN LOW AND LOCKED POSITION. CALL LIGHT IN REACH. 1:1 SITTER AT BEDSIDE WILL MONITOR.
[2017-02-20 20:00] VITALS: BP 138/80
--- NOTE | 2017-02-20 21:45 | NUR ---
RN NOTES: SPOKE TO PATIENT'S SON FLAVIA ON THE PHONE HE IS FOLLOWING UP ON MOTHER'S CARE. PER SON HE IS THE PERSON TO NOTIFY REGARDING PATIENT'S CARE. UPDATED RE PATIENT'S STATUS. FAMILY MEMBER INQUIRED ABOUT THE SLEEPING MEDICINE. EPIC SFDC ARCHITECT SUE AWARE OF PATIENT CONDITION AND FAMILY'S PREFERENCES, AND THAT FAMILY DOES NOT WANT MELATONIN IT WILL NOT WORK FOR HER. PER SUE HE DOES NOT WANT TO OVER RIDE AM MD'S DECISION TO HOLD AMBIEN AND GIVING ANOTHER SLEEPING MEDICATION (BENZODIAZEPINES) MAY NOT BE GOOD FOR PATIENT. SPOKE TO SON FLAVIA AND RELAYED MD'S SUGGESTION. SON IS NOTED TO BE FRUSTRATED OVER THE PHONE AND IS ADAMANT TO HAVE ANOTHER SLEEPING PILL GIVEN TO PATIENT FOR TONIGHT. RELAYED TO FAMILY'S CONCERNS ONCE AGAIN TO MD SFDC ARCHITECT. WITH ORDERS OBTAINED FOR RESTORIL 15MG PO ONE TIME. TO FOLLOW UP WITH MD IN AM RE PLAN ABOUT PATIENT'S MEDICATION. TO REMIND AM SHIFT TO ONLY SPEAK WITH FLAVIA, PATIENT'S SON RE PATIENT'S CARE AND DECISION MAKING.
[2017-02-20] MEDS ORDERED: TEMAZEPAM 15 MG CAPSULE PO ONE (22:00)
[2017-02-20] MEDS ORDERED: TEMAZEPAM 15 MG CAPSULE ONE (22:19)
--- NOTE | 2017-02-20 22:50 | NUR ---
RN NOTES RESTORIL ONE TIME ORDER GIVEN ORDERED. PATIENT PROVIDED WITH SNACKS, ASSISTED NEEDED, ASPIRATION PRECAUTION OBSERVED. 1:1 SITTER AT BEDSIDE AT ALL TIMES. PATIENT PROVIDED WITH CONSTANT REORIENTATION NEEDED. SAFETY AND COMFORT ENSURED.
[2017-02-20] MEDS: MUPIROCIN OINT 2% 22 GM TUBE SCH (22:52)
--- NOTE | 2017-02-21 | NUR ---
RN NOTES PATIENT AWAKE AT THIS TIME, PATIENT REQUESTING AND BEGGING FOR SLEEPING MEDICATION TO HELP HER SLEEP. PATIENT REORIENTED THAT SLEEPING MEDICATION HAS ALREADY BEEN GIVEN ORDERED. CONSTANT REORIENTATION PROVIDED. REASSURANCE PROVIDED NEEDED. PATIENT THEN REQUESTED FOR PAIN MEDICATION FOR C/O HEADACHE, 06/14. MEDICATED PATIENT PRN. WILL MONITOR. Addendum: 02/21/17 at 0614 by LISA MACIEL RN PATIENT REASSESSED AT 0100, PATIENT IS SLEEPING COMFORTABLY AT THIS TIME. NO DISTRESS.
[2017-02-21] MEDS: HYDROCODONE/APAP 5/325MG 1 EACH TABLET PO PRN ×3 (00:40→21:42)
[2017-02-21 04:00] VITALS: BP 123/59
--- NOTE | 2017-02-21 06:14 | NUR ---
RN CLOSING NOTES PATIENT ONLY ABLE TO SLEEP FOR AT LEAST 1.5-2 HOURS STRAIGHT WITH SLEEPING MEDICATION AND PAIN MEDICATION ADMINISTERED ORDERED. PATIENT PROVIDED WITH CONSTANT REORIENTATION AND REASSURANCE NEEDED. ASSISTED WITH ADLS AND USE OF COMMODE. PATIENT KEPT CLEAN AND DRY. NEEDS ANTICIPATED AND MET. 1:1 SITTER AT BEDSIDE AT ALL TIMES. SAFETY AND COMFORT ENSURED. WILL ENDORSE ACCORDINGLY FOR CONTINUITY OF CARE.
[2017-02-21] MEDS: BLOOD SUGAR DIAGNOSTIC 1 EACH STRIP IN SCH ×5 (06:53→21:42)
[2017-02-21 07:41] LABS: BASOPHILS % (AUTO) 0.3 % (0.0-2.0); EOSINOPHILS # (AUTO) 0.1 /CMM (0.0-0.7); EOSINOPHILS % (AUTO) 0.5 % (0.0-6.0); HEMATOCRIT 35 % (33-45); HEMOGLOBIN 11.4 g/dL (11.5-14.8); LYMPHOCYTES # (AUTO) 1.6 /CMM (0.8-4.8); LYMPHOCYTES % (AUTO) 12.7 % (20.0-44.0); MEAN CORPUSCULAR HEMOGLOBIN 29 PG (26.0-33.0); MEAN CORPUSCULAR HGB CONC 33 g/dl (31.0-36.0); MEAN CORPUSCULAR VOLUME 88 fL (82-100); MONOCYTES # (AUTO) 0.7 /CMM (0.1-1.30); MONOCYTES % (AUTO) 5.4 % (2.0-12.0); NEUTROPHILS # (AUTO) 10.1 /CMM (1.8-8.9); NEUTROPHILS % (AUTO) 81.1 % (43.0-81.0); PLATELET COUNT (AUTO) 415 /CMM (150-450); RDW COEFFICIENT OF VARIATION 16.6 (11.5-15.0); RED BLOOD CELL COUNT(AUTO) 3.96 MIL/uL (4.0-5.2); WHITE BLOOD COUNT (AUTO) 12.5 K/uL (4.3-11.0)
--- NOTE | 2017-02-21 07:41 | NUR ---
INTERNSHIP COORDINATOR RECEIVED PT IN BED AWAKE ALERT X2 SITTER AT BEDSIDE ON RA SAT 99% PT IN GOOD SPIRIT JOKING, PT NO ON MONITOR, VS STABLE SBP ELEVATED, IV ACCESS PATENT TKO, ABD SOFT ACTRIVE BOWL SOUNDS, FALL PRECAUTIONS TAKEN CALL LIGHT W/ IN REACH WILL CONTINUE TO MONITOR.
[2017-02-21 07:57] LABS: CALCIUM, SERUM 8.8 mg/dL (8.5-10.1); CREATININE 0.8 mg/dL (0.6-1.3); MAGNESIUM 1.8 mg/dL (1.8-2.4); PHOSPHORUS 3.3 mg/dL (2.5-4.9); POTASSIUM 3.3 mmol/L (3.5-5.1)
[2017-02-21 08:00] VITALS: BP 159/77
[2017-02-21] MEDS: PREGABALIN 25 MG CAPSULE PO SCH ×2 (08:02→16:44)
[2017-02-21] MEDS: FAMOTIDINE (20 MG) 20 MG TABLET PO SCH ×2 (08:03→16:44)
[2017-02-21] MEDS: MUPIROCIN OINT 2% 22 GM TUBE SCH ×2 (08:03→20:43)
[2017-02-21] MEDS: FERROUS SULFATE (325 MG) 325 MG/TAB TABLET PO SCH ×2 (08:03→16:44)
[2017-02-21] MEDS: predniSONE 10 MG TABLET PO SCH ×2 (08:03→16:44)
[2017-02-21] MEDS: ESCITALOPRAM OXALATE (10 MG) 10 MG TABLET PO SCH (08:03)
[2017-02-21] MEDS: BISOPROLOL FUMARATE 5 MG TABLET PO SCH ×2 (08:04→16:44)
[2017-02-21] MEDS ORDERED: POTASSIUM CHLORIDE 20 MEQ TAB.PRT.SR PO SCH (12:00)
[2017-02-21] MEDS: CEFTRIAXONE 1 G in IV D5W 50 ML IV SCH (12:04)
[2017-02-21] MEDS: AZITHROMYCIN 250 MG TABLET PO SCH (12:06)
[2017-02-21] MEDS: ACETAMINOPHEN 325 MG TABLET PO PRN ×2 (13:18→20:43)
[2017-02-21 16:00] VITALS: BP 122/58
[2017-02-21] MEDS: VANCOMYCIN 1 GM in IV D5W 250 ML IV SCH (16:44)
[2017-02-21] MEDS ORDERED: DOCUSATE SODIUM 100 MG CAPSULE PO SCH (18:30)
[2017-02-21] MEDS ORDERED: BISACODYL (5 MG) 5 MG TABLET.DR PO PRN (18:30)
[2017-02-21 20:00] VITALS: BP 142/79
--- NOTE | 2017-02-21 20:23 | NUR ---
RN PT IN BED WITH SON AT BEDSIDE . PT C/O WHEEZING FROM ASTHMA AND CHRONIC BACK PAIN 03/14. LUNG SOUNDS CLEAR. O2 SAT 95% . PT REQUESTED BREATHING TREATMENT. HOB ELEVATED AND REPOSITIONED PT . PRN TREATMENT GIVEN BY RT. WILL GIVE PRN PAIN MEDS PER REQUEST OF PT.
[2017-02-21] MEDS: DOCUSATE SODIUM 100 MG CAPSULE PO SCH (20:42)
[2017-02-21] MEDS: SULFAMETH/TRIMETH 800/160 MG 1 UDTAB TABLET PO SCH (20:42)
[2017-02-21] MEDS ORDERED: IV NS 0.9% 250 ML IV ONE (20:46)
--- NOTE | 2017-02-21 21:38 | NUR ---
RN PT STATES SHE IS FEELING BETTER AND DENIES ANY SOB . LUNGS CLEAR. PT STILL HAS PAIN IN BACK . PRN NORCO GIVEN.
--- NOTE | 2017-02-21 22:32 | NUR ---
SHINGLES ROOFER PER PATIENT REQUEST CALLED MD FOR SLEEPING PILL ORDER. SUE BABCOCK ANESTHESIOLOGISTS' ASSISTANT . AWARE OF SITUATION . GAVE ORDER FOR ONE TIME DOSE OF 15 MG RESTORIL PO . ALSO ADDRESSED BLOOD GLUCOSE LEVEL OF 198 WITHOUT COVERAGE. LABORATORY ASSOCIATE AWARE , NO FURTHER ORDERS GIVEN.
[2017-02-21] MEDS ORDERED: TEMAZEPAM 15 MG CAPSULE PO ONE (23:00)
[2017-02-21] MEDS ORDERED: TEMAZEPAM 15 MG CAPSULE PO PRN ×2 (23:00)
[2017-02-22 04:00] VITALS: BP 148/77
[2017-02-22] MEDS: HYDROCODONE/APAP 5/325MG 1 EACH TABLET PO PRN ×2 (05:16→23:22)
[2017-02-22] MEDS: BLOOD SUGAR DIAGNOSTIC 1 EACH STRIP IN SCH ×4 (06:39→21:23)
--- NOTE | 2017-02-22 07:30 | NUR ---
RN AM NOTES RECEIVED PATIENT IN BED, BED AWAKE AND ALERT, PERIODS OF CONFUSION NOTED. PATIENT WITH FAMILY AT BEDSIDE. SITTER AT BEDSIDE, PATIENT WITH NO DISTRESS AT THIS TIME. L FA G22, FLUSHES WELL SITE CLEAR. SAFETY AND COMFORT ENSURED. BED IN LOW AND LOCKED POSITION. CALL LIGHT IN REACH. 1:1 SITTER AT BEDSIDE WILL MONITOR.
[2017-02-22 08:00] VITALS: BP 142/60
[2017-02-22 08:31] LABS: CALCIUM, SERUM 8.9 mg/dL (8.5-10.1); CREATININE 0.9 mg/dL (0.6-1.3); POTASSIUM 3.6 mmol/L (3.5-5.1)
[2017-02-22 08:41] VITALS: BP 142/51
--- NOTE | 2017-02-22 09:30 | NUR ---
MS RN NOTES ADMINISTERED DUE MEDS.
[2017-02-22] MEDS: PREGABALIN 25 MG CAPSULE PO SCH ×2 (10:00→16:49)
[2017-02-22] MEDS: SULFAMETH/TRIMETH 800/160 MG 1 UDTAB TABLET PO SCH ×2 (10:01→21:15)
[2017-02-22] MEDS: FAMOTIDINE (20 MG) 20 MG TABLET PO SCH ×2 (10:01→16:48)
[2017-02-22] MEDS: FERROUS SULFATE (325 MG) 325 MG/TAB TABLET PO SCH ×2 (10:01→16:48)
[2017-02-22] MEDS: ESCITALOPRAM OXALATE (10 MG) 10 MG TABLET PO SCH (10:01)
[2017-02-22] MEDS: predniSONE 10 MG TABLET PO SCH ×2 (10:01→16:48)
[2017-02-22] MEDS: BISOPROLOL FUMARATE 5 MG TABLET PO SCH ×2 (10:01→16:49)
[2017-02-22] MEDS: MUPIROCIN OINT 2% 22 GM TUBE SCH ×2 (10:02→21:15)
[2017-02-22] MEDS: DOCUSATE SODIUM 100 MG CAPSULE PO SCH (10:02)
[2017-02-22] MEDS: CEFTRIAXONE 1 G in IV D5W 50 ML IV SCH (12:18)
--- NOTE | 2017-02-22 12:22 | NUR ---
MS RN NOTES ACCUCHECK. BS 175 MG/DL. NO INSULIN COVERAGE GIVEN. STARTED ROCEPHIN IV EARLIER. [1218]
[2017-02-22] MEDS: AZITHROMYCIN 250 MG TABLET PO SCH (12:30)
--- NOTE | 2017-02-22 14:50 | NUR ---
MS RN NOTES PER TRAMAINE DANIELSON STOCK PREPARATION SUPERVISOR - PT IS WHEEZING AND DOES NOT LOOK GOOD. NEEDS BREATHING TREATMENT , WILL STAY FOR ANOTHER DAY. PER PHYSICAL THERAPIST, PATIENT IS VERY UNSTABLE AND NEEDS ASSIST DESPITE USING WALKER. FALL RISK.
[2017-02-22 16:00] VITALS: BP 143/70
[2017-02-22 16:24] VITALS: BP_SYST 143; BP_DIAS 51; BP_DIAS 70
--- NOTE | 2017-02-22 16:48 | NUR ---
MS RN NOTES ACCUCHECK. BS 178 MG/DL. NO INSULIN COVERAGE GIVEN.
[2017-02-22] MEDS ORDERED: TEMAZEPAM 15 MG CAPSULE PO ONE ×2 (18:30→20:30)
--- NOTE | 2017-02-22 18:49 | NUR ---
RN CLOSING NOTES PT RESTING IN BED, DAUGHTER AT BEDSIDE. AWAKE AND ALERT, PERIODS OF CONFUSION NOTED. ON RA, NAD, NO SOB, LFA G22, FLUSHES WELL SITE CLEAR. SAFETY AND COMFORT ENSURED. BED IN LOW AND LOCKED POSITION. CALL LIGHT IN REACH. ALL NEEDS MET. NO OTHER SIGNIFICANT CHANGE IN CONDITION. WILL ENDORSE TO NEXT SHIFT FOR AUGUST.
[2017-02-22 20:00] VITALS: BP 122/71
[2017-02-22] MEDS ORDERED: INSULIN ASPART NOVOLOG 100 UNIT/ML CARTRIDGE SQ PRN (22:00)
[2017-02-22] MEDS: INSULIN REGULAR, HUMAN 100 UNIT/ML 3 ML VIAL SQ PRN (22:06)
[2017-02-23 04:00] VITALS: BP 150/68
--- NOTE | 2017-02-23 06:30 | NUR ---
MS RN: NO SIGNIFICANT AUGUST DURING THE SHIFT. AWAKE AND ALERT WT CONFUSION. ON R/A WT NO ACUTE DISTRESS. NO WHEEZING NOTED UPON LUNG AUSCULTATION. GIVEN NORCO ORDERED FOR GEN. PAIN (7/10) WT GOOD EFFECT (0/10). ABLE TO URINATE ON BEDSIDE COMMODE BUT WITH ASSISTANCE PT IS UNSTEADY. SAFETY PRECAUTION NOTED AT ALL TIMES. FREQUENT VISUAL CHECKS DONE. CALL LIGHT WITHIN REACH.
[2017-02-23] MEDS: BLOOD SUGAR DIAGNOSTIC 1 EACH STRIP IN SCH ×2 (06:57→12:12)
[2017-02-23] MEDS: INSULIN REGULAR, HUMAN 100 UNIT/ML 3 ML VIAL SQ PRN (07:02)
--- NOTE | 2017-02-23 07:10 | NUR ---
RN NOTE RECEIVED REPORT FROM AM NURSE. PT A/O X1-2. PT ON RA. IV LFA #22 G FLUSHED PATENT AND INTACT. PT CLEAN WARM AND DRY. ALL SAFETY MEASURES IN PLACE. WILL CONTINUE TO MONITOR CLOSELY.
[2017-02-23 07:27] LABS: BASOPHILS % (AUTO) 0.1 % (0.0-2.0); HEMATOCRIT 33 % (33-45); LYMPHOCYTES # (AUTO) 1.7 /CMM (0.8-4.8); LYMPHOCYTES % (AUTO) 13.4 % (20.0-44.0); MEAN CORPUSCULAR HEMOGLOBIN 29 PG (26.0-33.0); MEAN CORPUSCULAR HGB CONC 33 g/dl (31.0-36.0); MEAN CORPUSCULAR VOLUME 89 fL (82-100); MONOCYTES # (AUTO) 0.7 /CMM (0.1-1.30); MONOCYTES % (AUTO) 5.5 % (2.0-12.0); PLATELET COUNT (AUTO) 389 /CMM (150-450); RDW COEFFICIENT OF VARIATION 16.5 (11.5-15.0); RED BLOOD CELL COUNT(AUTO) 3.75 MIL/uL (4.0-5.2); WHITE BLOOD COUNT (AUTO) 12.4 K/uL (4.3-11.0)
[2017-02-23 07:37] LABS: CALCIUM, SERUM 8.6 mg/dL (8.5-10.1); CREATININE 0.9 mg/dL (0.6-1.3); MAGNESIUM 2.2 mg/dL (1.8-2.4); PHOSPHORUS 2.8 mg/dL (2.5-4.9); POTASSIUM 3.6 mmol/L (3.5-5.1)
[2017-02-23] MEDS: DOCUSATE SODIUM 100 MG CAPSULE PO SCH (08:24)
[2017-02-23] MEDS: PREGABALIN 25 MG CAPSULE PO SCH (08:25)
[2017-02-23] MEDS: FAMOTIDINE (20 MG) 20 MG TABLET PO SCH (08:25)
[2017-02-23] MEDS: FERROUS SULFATE (325 MG) 325 MG/TAB TABLET PO SCH (08:26)
[2017-02-23] MEDS: ESCITALOPRAM OXALATE (10 MG) 10 MG TABLET PO SCH (08:26)
[2017-02-23] MEDS: SULFAMETH/TRIMETH 800/160 MG 1 UDTAB TABLET PO SCH (08:26)
[2017-02-23] MEDS: predniSONE 10 MG TABLET PO SCH (08:26)
[2017-02-23 08:31] VITALS: BP 135/60
[2017-02-23] MEDS: BISOPROLOL FUMARATE 5 MG TABLET PO SCH (08:31)
[2017-02-23] MEDS: MUPIROCIN OINT 2% 22 GM TUBE SCH (08:33)
[2017-02-23] MEDS ORDERED: Ipratropium Bromide NEB (11:12)
[2017-02-23] MEDS ORDERED: SULF1TAB3 PO ×2 (11:12→13:14)
[2017-02-23] MEDS ORDERED: AZIT250T PO (11:12)
[2017-02-23] MEDS ORDERED: ALBUT2 NEB (11:12)
[2017-02-23] MEDS: CEFTRIAXONE 1 G in IV D5W 50 ML IV SCH (12:06)
--- NOTE | 2017-02-23 12:12 | NUR ---
RN NOTE B.S. 221 PT AND AT BEDSIDE REFUSED INSULIN. NO COVERAGE PER PT.
[2017-02-23] MEDS: AZITHROMYCIN 250 MG TABLET PO SCH (13:00)
[2017-02-23] MEDS ORDERED: LEVO500T15 PO (13:14)
--- NOTE | 2017-02-23 13:17 | NUR ---
EXECUTOR OF ESTATE NOTE PT DC TO [facility]. REPORT GIVEN TO BRETT BLAIR FOREST EXAMINER AWARE OF MRSA OF NARES. PT TRANSFERRED VIA AMBULANCE WITH AT SIDE. ID BAND AND IV REMOVED. ALL DC INSTRUCTIONS GIVEN TO EMT. BELONGING LIST SIGNED . PT CLEAN AND DRY CHANGED INTO PERSONAL CLOTHING. ALL MEDICATIONS AND ORDERS CARRIED OUT.
== END 2017-02-23 14:00 | DRG 190 ==
LOC: EDUNIT# 07:33 → ER 07:35 → MEDSG1 11:09 → TELE1 11:56 → MEDSG1 02-20 10:49
DX: J44.0 Chronic obstructive pulmonary disease with (acute) lower respiratory infection (principal); J15.9 Unspecified bacterial pneumonia; L03.116 Cellulitis of left lower limb; I50.32 Chronic diastolic (congestive) heart failure; N39.0 Urinary tract infection, site not specified; J45.901 Unspecified asthma with (acute) exacerbation; D72.829 Elevated white blood cell count, unspecified; K21.9 Gastro-esophageal reflux disease without esophagitis; E11.9 Type 2 diabetes mellitus without complications; I11.0 Hypertensive heart disease with heart failure; E05.90 Thyrotoxicosis, unspecified without thyrotoxic crisis or storm; F32.9 Major depressive disorder, single episode, unspecified; F41.9 Anxiety disorder, unspecified; M19.90 Unspecified osteoarthritis, unspecified site; Z22.322 Carrier or suspected carrier of Methicillin resistant Staphylococcus aureus; B95.62 Methicillin resistant Staphylococcus aureus infection as the cause of diseases classified elsewhere; G89.29 Other chronic pain
CPT/HCPCS: 36415; 71010-TC; 80048-TC; 81000-TC; 82962-TC; 83605-TC; 83735-TC; 83880; 84100-TC; 84484-TC; 85025-TC; 87040-TC; 87081-TC; 87086-TC; 97001-TC; 97116-TC; 97530-TC; A4606; J0456; J0696; J1815; J3370; J7030; J7050; J7060; Z7610

== ENCOUNTER 2017-03-17 07:20 | Emergency (ER) | payer MEDICARE, OTHER ==
[~2017-03-17] VITALS: Ht 154.9 cm; Wt 65.8 kg
[~2017-03-17 07:20] MED LIST changes: +ALBUT2 NEB; -BLOO-697 IN; -BUME1TAB4 PO; -CLON0.5T4 PO; +ESCI10TA PO; +FAMO20TA8 PO; -FLUT1DIS5 IH; -HYDR-3326 PO; -IPRA3AMP IH; +Ipratropium Bromide NEB; +LEVO500T15 PO; -MULT-24 PO; +PILO5TAB PO; -PILO7.5T2 PO; +PREG150C PO; -SITA100T PO; +SULF1TAB3 PO; -VALS1TAB52 PO
--- NOTE | 2017-03-17 07:30 | NUR ---
AAOX3, BB FAMILY: VAGINAL BLEEDING/PAIN/SWELLING IN PELVIC AREA X 2 DAYS. RESP IS EVEN AND UNLABORED WITH NAD NOTED. SKIN IS WARM AND DRY. ASSISTED TO HOSPITAL GOWN. AWAITING MD FOR EVAL.
--- NOTE | 2017-03-17 07:42 | NUR ---
DR ARMSTRONG AT BS FOR TIFFANIE.
--- NOTE | 2017-03-17 08:05 | NUR ---
Patient discharged to home in stable condition. Written and verbal after care instructions given. Patient verbalizes understanding of instruction.
[2017-03-17 08:06] VITALS: BP 129/68
== END 2017-03-17 08:06 | disposition home or self-care (01) ==
LOC: ER 07:23
DX: B37.3 Candidiasis of vulva and vagina (principal); E11.9 Type 2 diabetes mellitus without complications; I10 Essential (primary) hypertension; K21.9 Gastro-esophageal reflux disease without esophagitis; M19.90 Unspecified osteoarthritis, unspecified site
CPT/HCPCS: A4606; Z7610

== ENCOUNTER 2017-04-23 09:44 | Outpatient (CLI) | payer MEDICARE, OTHER | END 2017-04-23 23:59 | disposition home or self-care (01) | LOC: WOU 09:44 | PROVIDERS: ATTEND Podiatrist Foot & Ankle Surgery | DX: I83.028 Varicose veins of left lower extremity with ulcer other part of lower leg (principal); L97.823 Non-pressure chronic ulcer of other part of left lower leg with necrosis of muscle; E11.51 Type 2 diabetes mellitus with diabetic peripheral angiopathy without gangrene; I11.9 Hypertensive heart disease without heart failure; Z87.891 Personal history of nicotine dependence; J45.909 Unspecified asthma, uncomplicated | CPT/HCPCS: 11043; 93922; A6402 ==

== ENCOUNTER 2017-04-30 10:17 | Outpatient (CLI) | payer MEDICARE, OTHER | END 2017-04-30 23:59 | disposition home health service (06) | LOC: WOU 10:17 | PROVIDERS: ATTEND Podiatrist Foot & Ankle Surgery | DX: I87.312 Chronic venous hypertension (idiopathic) with ulcer of left lower extremity (principal); L97.823 Non-pressure chronic ulcer of other part of left lower leg with necrosis of muscle; M79.605 Pain in left leg; E11.622 Type 2 diabetes mellitus with other skin ulcer | CPT/HCPCS: 11043; 87070-TC; 88304-TC; 88305-TC; 88311-TC; A6402 ==

== ENCOUNTER 2017-05-03 10:54 | Outpatient (CLI) | payer MEDICARE, OTHER | END 2017-05-03 23:59 | disposition home health service (06) | LOC: WOU 10:54 | PROVIDERS: ATTEND Podiatrist Foot & Ankle Surgery | DX: I87.312 Chronic venous hypertension (idiopathic) with ulcer of left lower extremity (principal); E11.621 Type 2 diabetes mellitus with foot ulcer; L97.822 Non-pressure chronic ulcer of other part of left lower leg with fat layer exposed; Z87.891 Personal history of nicotine dependence; I11.9 Hypertensive heart disease without heart failure | CPT/HCPCS: 15271; A6253; A6402; A6452 ==

== ENCOUNTER 2017-05-10 10:28 | Outpatient (CLI) | payer MEDICARE, OTHER | END 2017-05-10 23:59 | disposition home health service (06) | LOC: WOU 10:28 | PROVIDERS: ATTEND Podiatrist Foot & Ankle Surgery | DX: I87.312 Chronic venous hypertension (idiopathic) with ulcer of left lower extremity (principal); L97.823 Non-pressure chronic ulcer of other part of left lower leg with necrosis of muscle; E11.622 Type 2 diabetes mellitus with other skin ulcer; Z87.891 Personal history of nicotine dependence | CPT/HCPCS: 11043; A6402; A6452 ==

== ENCOUNTER 2017-05-17 09:59 | Outpatient (CLI) | payer MEDICARE, OTHER | END 2017-05-17 23:59 | disposition home health service (06) | LOC: WOU 09:59 | PROVIDERS: ATTEND Podiatrist Foot & Ankle Surgery | DX: I83.028 Varicose veins of left lower extremity with ulcer other part of lower leg (principal); L97.822 Non-pressure chronic ulcer of other part of left lower leg with fat layer exposed; E11.622 Type 2 diabetes mellitus with other skin ulcer; Z87.891 Personal history of nicotine dependence; M79.605 Pain in left leg; I11.9 Hypertensive heart disease without heart failure; J45.909 Unspecified asthma, uncomplicated | CPT/HCPCS: A6402; G0463 ==

== ENCOUNTER 2017-05-31 07:03 | Day surgery (SDC) | payer MEDICARE, OTHER ==
[2017-05-31] MEDS ORDERED: CEFAZOLIN SODIUM/DEXTROSE,ISO 100 ML IV ONE (09:29)
[2017-05-31] MEDS ORDERED: BUPIVACAINE MPF 0.5% W/EPI INJ 30 ML VIAL ONE (09:35)
[2017-05-31] MEDS ORDERED: MIDAZOLAM HCL 2 MG/2ML VIAL ONE (09:42)
[2017-05-31] MEDS ORDERED: FENTANYL PF 100MCG/2ML AMPUL ONE (09:43)
[2017-05-31] MEDS ORDERED: oxyCODONE/APAP (5/325 MG) 1 UDTAB TABLET PO PRN (11:00)
== END 2017-05-31 11:50 | disposition home or self-care (01) ==
LOC: DS 07:03
PROVIDERS: ATTEND Podiatrist Foot & Ankle Surgery
DX: I83.028 Varicose veins of left lower extremity with ulcer other part of lower leg (principal); L97.829 Non-pressure chronic ulcer of other part of left lower leg with unspecified severity; J44.9 Chronic obstructive pulmonary disease, unspecified; I10 Essential (primary) hypertension; M19.90 Unspecified osteoarthritis, unspecified site; F32.9 Major depressive disorder, single episode, unspecified; K21.9 Gastro-esophageal reflux disease without esophagitis
CPT/HCPCS: 88305-TC; A6402; J0690; J2250; J2704; J3010; J3490

== ENCOUNTER 2017-06-07 10:41 | Outpatient (CLI) | payer MEDICARE, OTHER | END 2017-06-07 23:59 | disposition home health service (06) | LOC: WOU 10:41 | PROVIDERS: ATTEND Podiatrist Foot & Ankle Surgery | DX: Z09 Encounter for follow-up examination after completed treatment for conditions other than malignant neoplasm (principal); I87.2 Venous insufficiency (chronic) (peripheral); M79.605 Pain in left leg; E11.9 Type 2 diabetes mellitus without complications; I10 Essential (primary) hypertension; Z87.891 Personal history of nicotine dependence | CPT/HCPCS: A6209; A6402; A6452; G0463 ==

== ENCOUNTER 2017-06-14 10:00 | Outpatient (CLI) | payer MEDICARE, OTHER | END 2017-06-14 23:59 | disposition home health service (06) | LOC: WOU 10:00 | PROVIDERS: ATTEND Podiatrist Foot & Ankle Surgery | DX: Z09 Encounter for follow-up examination after completed treatment for conditions other than malignant neoplasm (principal); I87.2 Venous insufficiency (chronic) (peripheral); M79.605 Pain in left leg; E11.9 Type 2 diabetes mellitus without complications; I10 Essential (primary) hypertension; Z87.891 Personal history of nicotine dependence | CPT/HCPCS: A6402; G0463 ==

== ENCOUNTER 2017-06-21 10:30 | Outpatient (CLI) | payer MEDICARE, OTHER | END 2017-06-21 23:59 | disposition home or self-care (01) | LOC: WOU 10:30 | PROVIDERS: ATTEND Podiatrist Foot & Ankle Surgery | DX: Z09 Encounter for follow-up examination after completed treatment for conditions other than malignant neoplasm (principal); I87.2 Venous insufficiency (chronic) (peripheral); E11.9 Type 2 diabetes mellitus without complications; Z87.891 Personal history of nicotine dependence; M79.605 Pain in left leg | CPT/HCPCS: A6402; G0463 ==

== ENCOUNTER 2017-08-23 10:16 | Outpatient (CLI) | payer MEDICARE, OTHER | END 2017-08-23 23:59 | disposition home health service (06) | LOC: WOU 10:16 | PROVIDERS: ATTEND Podiatrist Foot & Ankle Surgery | DX: M79.605 Pain in left leg (principal); I87.2 Venous insufficiency (chronic) (peripheral); E11.9 Type 2 diabetes mellitus without complications | CPT/HCPCS: G0463 ==

== ENCOUNTER 2017-09-02 10:04 | Emergency (ER) | payer MEDICARE, OTHER ==
[~2017-09-02] VITALS: Ht 165.1 cm; Wt 64.9 kg
--- NOTE | 2017-09-02 10:04 | NUR ---
PATIENT BIB RA D/T AMS. PATIENT NON VERBAL, UNABLE TO FOLLOW COMMANDS. ALERT BUT, BUT NOT ORIENTED. BREATHING EVEN AND UNLABORED. NO SOB. VITALS STABLE. PATIENT TAKEN DIRECTLY TO CT R/O STROKE. WILL MONITOR UPON RETURN.
--- NOTE | 2017-09-02 10:04 | NUR ---
CODE STROKE CALLED
--- NOTE | 2017-09-02 10:15 | NUR ---
PATIENT RETURNED FROM CT WITH NO SIGNIFICANT CHANGES IN CONDITION. MONITOR APPLIED, NEW IV STARTED ON LAC, 20 G. BLOOD DRAWN AND SENT TO LAB.
[2017-09-02] MEDS ORDERED: LABETALOL HCL IV 100MG VIAL ONE (10:20)
--- NOTE | 2017-09-02 10:24 | NUR ---
VERBAL ORDER FROM DR. DALE FOR LABETALOL 10MG IVP TO L AC G 20
--- NOTE | 2017-09-02 10:24 | NUR ---
DR. YODER FROM [facility] CALLED TO CONSULT WITH DR. GOLDSTEIN
--- NOTE | 2017-09-02 10:26 | NUR ---
PATIENT MEDICATED PER MD ORDERS.
[2017-09-02 10:27] LABS: BASOPHILS % (AUTO) 0.4 % (0.0-2.0); EOSINOPHILS % (AUTO) 0.5 % (0.0-6.0); HEMATOCRIT 34 % (33-45); HEMOGLOBIN 11.5 g/dL (11.5-14.8); LYMPHOCYTES # (AUTO) 1.4 /CMM (0.8-4.8); MEAN CORPUSCULAR HEMOGLOBIN 31 PG (26.0-33.0); MEAN CORPUSCULAR HGB CONC 34 g/dl (31.0-36.0); MEAN CORPUSCULAR VOLUME 92 fL (82-100); MONOCYTES # (AUTO) 0.4 /CMM (0.1-1.30); MONOCYTES % (AUTO) 4.8 % (2.0-12.0); NEUTROPHILS # (AUTO) 6.2 /CMM (1.8-8.9); NEUTROPHILS % (AUTO) 77.3 % (43.0-81.0); PLATELET COUNT (AUTO) 331 /CMM (150-450); RDW COEFFICIENT OF VARIATION 14.9 (11.5-15.0); RED BLOOD CELL COUNT(AUTO) 3.74 MIL/uL (4.0-5.2)
--- NOTE | 2017-09-02 10:27 | NUR ---
PAGED DR. RANGEL FOR CONSULT
--- NOTE | 2017-09-02 10:32 | NUR ---
PT ACCEPTED BY DR. RANGEL FOR TRANSFER TO [facility]
[2017-09-02 10:36] LABS: CALCIUM, SERUM 9.2 mg/dL (8.5-10.1); CARBON DIOXIDE 31 mmol/L (21-32); CHLORIDE 100 mmol/L (98-107); CREATININE 0.8 mg/dL (0.6-1.3); GLUCOSE 130 mg/dL (74-106); POTASSIUM 4.1 mmol/L (3.5-5.1); SODIUM SERUM 134 mmol/L (136-145); UREA NITROGEN, BLOOD 15 mg/dL (7-18)
--- NOTE | 2017-09-02 10:38 | NUR ---
CORETTA FROM [facility] CALLED FOR PATIENT INFORMATION. FACE SHEET FAXED TO [phone]
[2017-09-02 10:40] LABS: INR 0.89 (0.87-1.13); PROTHROMBIN TIME 9.3 SECS (9.5-12.7)
[2017-09-02 10:44] LABS: TROPONIN I < 0.017 ng/mL (0.00-0.056)
--- NOTE | 2017-09-02 10:45 | NUR ---
THIRD RIGGER AT BEDSIDE .
--- NOTE | 2017-09-02 10:57 | NUR ---
PT GOING TO [facility], ROOM 4518, #[phone] RANGEL ACCEPTING PHYSICIAN
[2017-09-02] MEDS ORDERED: LABETALOL HCL IV 100MG VIAL IV ONE (11:00)
--- NOTE | 2017-09-02 11:10 | NUR ---
report given to justine pritchard at [facility] for transfer.
[2017-09-02] MEDS ORDERED: NICARDIPINE IN DEXTROSE,ISO-OS 200 ML IV PRN ×2 (11:30→14:00)
--- NOTE | 2017-09-02 11:35 | NUR ---
ETA FOR [facility] TRANSPORT UPDATED TO 1200
--- NOTE | 2017-09-02 12:16 | NUR ---
CCT AT BEDSIDE, REPORT GIVEN TO RNKASEY. PATIENT TO BE TRANSFERRED TO [facility].
[2017-09-02 13:21] VITALS: BP 142/81
[2017-09-02] MEDS ORDERED: NICARDIPINE IN DEXTROSE,ISO-OS 200 ML IV ONE (13:36)
--- NOTE | 2017-09-02 13:39 | NUR ---
CCT AT BEDSIDE. FAMILY AGREED ON TRANSFER TO [facility] AT THIS TIME. SECOND BAG OF CARDENE STARTED PRIOR TO TRANSFER TO [facility]. VITALS REMAIN STABLE. PATIENT LEFT VIA STRETCHER.
== END 2017-09-02 13:51 | disposition short-term general hospital (02) ==
LOC: ER 10:09
DX: I62.9 Nontraumatic intracranial hemorrhage, unspecified (principal); R47.01 Aphasia; R41.82 Altered mental status, unspecified; E11.9 Type 2 diabetes mellitus without complications; F03.90 Unspecified dementia, unspecified severity, without behavioral disturbance, psychotic disturbance, mood disturbance, and anxiety; I11.0 Hypertensive heart disease with heart failure; I50.9 Heart failure, unspecified; J45.909 Unspecified asthma, uncomplicated; K21.9 Gastro-esophageal reflux disease without esophagitis; M19.90 Unspecified osteoarthritis, unspecified site
CPT/HCPCS: 36415; 70450; 71010; 80048; 84484; 85025; 85730; 93005; 96365; 96366; 96375; 99291; 99292; A4606; J3490; Z7610

== ENCOUNTER 2017-11-21 08:26 | Emergency (ER) | payer MEDICARE, OTHER ==
[~2017-11-21] VITALS: Ht 162.6 cm; Wt 59.0 kg
[~2017-11-21 08:26] MED LIST changes: -LEVO500T15 PO; +LEVO500T75 PO
--- NOTE | 2017-11-21 08:30 | NUR ---
SHAHLA FROM HOME DT ALTERED MENTAL STATUS AND PT BECAME APHASIC SINCE THIS AM,. PER REPORT PT WAS LAST SEEN NORMAL 2100 LAST NIGHT. PT WITH HX OF CVA,. NOTED WITH RIGHT SIDED WEAKNESS. PATIENT WAS ALSO NOTED FEBRILE- 101.7 RECTALLY. PT IS SATING WELL ON ROOM AIR, IN NO APPARENT DISTRESS. GOWNED PT AND PLACED ON TELE MONITOR. IV INSERTED ON LEFT HAND 20. BLOOD SAMPLE COLLECTED
--- NOTE | 2017-11-21 08:39 | NUR ---
NY'S SON AT BEDSIDE
--- NOTE | 2017-11-21 08:46 | NUR ---
MD APONTE AT BEDSIDE
[2017-11-21] MEDS ORDERED: IV NS 0.9% 1,000 ML BAG IV ONE (09:00)
[2017-11-21] MEDS ORDERED: CEFTRIAXONE 1GM BAG (ER ONLY) 50 ML IV ONE (09:00)
[2017-11-21] MEDS ORDERED: CEFTRIAXONE 1 G VIAL ONE (09:01)
--- NOTE | 2017-11-21 09:02 | NUR ---
PT WAS TAKEN TO CT
[2017-11-21 09:07] LABS: BASOPHILS % (AUTO) 0.3 % (0.0-2.0); EOSINOPHILS % (AUTO) 0.1 % (0.0-6.0); HEMATOCRIT 27 % (33-45); HEMOGLOBIN 8.9 g/dL (11.5-14.8); LYMPHOCYTES % (AUTO) 15.9 % (20.0-44.0); MEAN CORPUSCULAR HEMOGLOBIN 28 PG (26.0-33.0); MEAN CORPUSCULAR HGB CONC 33 g/dl (31.0-36.0); MEAN CORPUSCULAR VOLUME 85 fL (82-100); MONOCYTES # (AUTO) 0.9 /CMM (0.1-1.30); MONOCYTES % (AUTO) 7.1 % (2.0-12.0); NEUTROPHILS # (AUTO) 9.8 /CMM (1.8-8.9); NEUTROPHILS % (AUTO) 76.6 % (43.0-81.0); PLATELET COUNT (AUTO) 427 /CMM (150-450); RDW COEFFICIENT OF VARIATION 15.1 (11.5-15.0); RED BLOOD CELL COUNT(AUTO) 3.17 MIL/uL (4.0-5.2); WHITE BLOOD COUNT (AUTO) 12.7 K/uL (4.3-11.0)
[2017-11-21 09:15] LABS: CARBON DIOXIDE 29 mmol/L (21-32); CHLORIDE 103 mmol/L (98-107); CREATININE 0.8 mg/dL (0.6-1.3); GLUCOSE 123 mg/dL (74-106); POTASSIUM 3.7 mmol/L (3.5-5.1); SODIUM SERUM 139 mmol/L (136-145); UREA NITROGEN, BLOOD 14 mg/dL (7-18)
[2017-11-21 09:20] LABS: ALANINE AMINOTRANSFERASE 15 U/L (12-78); ALBUMIN 3.1 g/dL (3.4-5.0); ALKALINE PHOSPHATASE 101 U/L (46-116); ASPARTATE AMINOTRANSFERASE 13 U/L (15-37); BILIRUBIN,TOTAL 0.4 mg/dL (0.2-1.0); TOTAL PROTEIN, SERUM 7.7 g/dL (6.4-8.2)
[2017-11-21 09:23] LABS: TROPONIN I < 0.017 ng/mL (0.00-0.056)
--- NOTE | 2017-11-21 09:26 | NUR ---
STARTED PT ON CARDENE DRIP ORDERED
[2017-11-21] MEDS ORDERED: NICARDIPINE IN DEXTROSE,ISO-OS 200 ML IV ONE (09:27)
--- NOTE | 2017-11-21 09:27 | NUR ---
PAGED DR RANGEL. WAITING FOR RETURN CALL.
[2017-11-21] MEDS ORDERED: NICARDIPINE IN NACL, ISO-OSM 200 ML IV PRN (09:30)
[2017-11-21 09:31] LABS: APPEARANCE,URINE Cloudy (CLEAR); BILIRUBIN,URINE Negative (NEGATIVE); BLOOD, URINE Trace-intact Ery/uL (NEGATIVE); COLOR,URINE Yellow (YELLOW); KETONES,URINE Negative (NEGATIVE); LEUKOCYTE ESTERASE ,URINE Small (NEGATIVE); NITRITE, URINE Negative (NEGATIVE); PH,URINE 8.5 (5.0-8.0); PROTEIN,URINE Negative (NEGATIVE); UGLUCOSE Negative (NEGATIVE); UROBILINOGEN,URINE 0.2 EU/dL (0.2)
[2017-11-21 09:40] LABS: INR 0.96 (0.87-1.13)
[2017-11-21 09:52] LABS: BACTERIA,URINE Few /HPF (None Seen); SQUAMOUS EPITHELIAL CELL,UR Few /HPF (None Seen); WBC,URINE 80-100 /HPF (0-3)
--- NOTE | 2017-11-21 09:54 | NUR ---
SPOKE TO [facility]IN[facility]OPE[facility] LATTER-DAY TRANSFER: WILL FAX PAPERWORK TO [phone] CALLBACK NUMBER [phone]
--- NOTE | 2017-11-21 10:03 | NUR ---
CCT ETA 35 MINUTES. GOING TO 4516 BED 1. CALL FOR REPORT EXT [phone]. ADMITTING MD DR CALDERON
[2017-11-21 10:44] VITALS: BP 145/65
--- NOTE | 2017-11-21 10:46 | NUR ---
REPORT GIVEN TO ZACH LIMON FOR AUGUST
--- NOTE | 2017-11-21 10:46 | NUR ---
PATIENT TRANSPORTED TO [facility] VIA ACLS PROTOCOL. PT CONT ON CARDENE DRIP @10MG/HR. RN AWARE, VSS.
--- NOTE | 2017-11-21 10:51 | NUR ---
RN NOHEMY AWARE OF FLORIDALMA ESPITIA
== END 2017-11-21 10:50 | disposition short-term general hospital (02) ==
LOC: ER 08:28
DX: I63.9 Cerebral infarction, unspecified (principal); N39.0 Urinary tract infection, site not specified; E11.9 Type 2 diabetes mellitus without complications; F03.90 Unspecified dementia, unspecified severity, without behavioral disturbance, psychotic disturbance, mood disturbance, and anxiety; G93.89 Other specified disorders of brain; I11.0 Hypertensive heart disease with heart failure; I50.9 Heart failure, unspecified; J45.909 Unspecified asthma, uncomplicated; K21.9 Gastro-esophageal reflux disease without esophagitis; M19.90 Unspecified osteoarthritis, unspecified site
CPT/HCPCS: 36415; 51702; 70450; 71045; 80048; 80076; 81001; 83605; 84484; 85025; 85730; 87040 ×2; 87086; 93005; 96365; 99291; A4606; J0696 ×2; J7030; 81000-TC; Z7610

== ENCOUNTER 2018-01-17 10:06 | Inpatient (IN) | payer MEDICARE, OTHER ==
[~2018-01-17] VITALS: Ht 165.1 cm; Wt 65.3 kg
[2018-01-17] VITALS (17 sets, daily range): BP systolic 101–143; BP diastolic 47–88
--- NOTE | 2018-01-17 10:15 | NUR ---
AAOX2 BBPA FROM [facility]: COUGH, CONGESTION HYPOXIA x 1 DAY SPO2=92% ON RA. RESP IS SLIGHTLY LABORED. SKIN IS WARM AND DRY. PLACED ON THE MONITOR. WILL CONTINUOUSLY MONITOR THE PATIENT. AWAITING MD FOR EVAL.
--- NOTE | 2018-01-17 10:17 | NUR ---
DR ANDERS AT FOR VARINDERAL.
[2018-01-17] MEDS ORDERED: BISA10SU8 RC (11:04)
[2018-01-17] MEDS ORDERED: ACET-2605 PO (11:04)
[2018-01-17] MEDS ORDERED: PANT40TA2 PO (11:04)
[2018-01-17] MEDS ORDERED: NA P133E RC (11:04)
[2018-01-17] MEDS ORDERED: SITA100T PO (11:04)
[2018-01-17] MEDS ORDERED: ACET-868 PO (11:04)
[2018-01-17] MEDS ORDERED: MAG30ORA PO (11:04)
[2018-01-17] MEDS ORDERED: MAGN400O6 PO (11:04)
[2018-01-17] MEDS ORDERED: METO25TA20 PO (11:04)
[2018-01-17] MEDS ORDERED: GUAI100S11 PO (11:04)
[2018-01-17] MEDS ORDERED: MULT-447 PO (11:04)
[2018-01-17] MEDS ORDERED: DOCU-141 PO (11:04)
[2018-01-17] MEDS ORDERED: IPRA3AMP IH ×2 (11:04)
[2018-01-17] MEDS ORDERED: ALBUTEROL FS 2.5 MG/3 ML VIAL.NEB ONE (11:45)
[2018-01-17] MEDS ORDERED: IPRATROPIUM NEB FS 0.5 MG/2.5 ML AMPUL.NEB ONE (11:45)
[2018-01-17 11:46] LABS: BASOPHILS % (AUTO) 0.7 % (0.0-2.0); EOSINOPHILS # (AUTO) 0.1 /CMM (0.0-0.7); EOSINOPHILS % (AUTO) 0.8 % (0.0-6.0); HEMATOCRIT 30 % (33-45); HEMOGLOBIN 9.6 g/dL (11.5-14.8); LYMPHOCYTES # (AUTO) 1.5 /CMM (0.8-4.8); LYMPHOCYTES % (AUTO) 21.6 % (20.0-44.0); MEAN CORPUSCULAR HEMOGLOBIN 26 PG (26.0-33.0); MEAN CORPUSCULAR HGB CONC 33 g/dl (31.0-36.0); MEAN CORPUSCULAR VOLUME 79 fL (82-100); MONOCYTES # (AUTO) 0.7 /CMM (0.1-1.30); MONOCYTES % (AUTO) 10.1 % (2.0-12.0); NEUTROPHILS # (AUTO) 4.5 /CMM (1.8-8.9); NEUTROPHILS % (AUTO) 66.8 % (43.0-81.0); PLATELET COUNT (AUTO) 373 /CMM (150-450); RDW COEFFICIENT OF VARIATION 15.9 (11.5-15.0); RED BLOOD CELL COUNT(AUTO) 3.74 MIL/uL (4.0-5.2); WHITE BLOOD COUNT (AUTO) 6.8 K/uL (4.3-11.0)
[2018-01-17 11:50] LABS: CALCIUM, SERUM 9.3 mg/dL (8.5-10.1); CARBON DIOXIDE 30 mmol/L (21-32); CHLORIDE 100 mmol/L (98-107); CREATININE 0.9 mg/dL (0.6-1.3); GLUCOSE 118 mg/dL (74-106); POTASSIUM 4.2 mmol/L (3.5-5.1); SODIUM SERUM 136 mmol/L (136-145); UREA NITROGEN, BLOOD 19 mg/dL (7-18)
[2018-01-17 11:56] LABS: ALANINE AMINOTRANSFERASE 12 U/L (12-78); ALBUMIN 2.9 g/dL (3.4-5.0); ALKALINE PHOSPHATASE 84 U/L (46-116); ASPARTATE AMINOTRANSFERASE 16 U/L (15-37); BILIRUBIN,DIRECT 0.1 mg/dL (0.0-0.2); BILIRUBIN,TOTAL 0.3 mg/dL (0.2-1.0); INR 0.91 (0.85-1.15); TOTAL PROTEIN, SERUM 8.3 g/dL (6.4-8.2)
[2018-01-17] MEDS ORDERED: ALBUTEROL FS 2.5 MG/3 ML VIAL.NEB CONTNEB ONE (12:00)
[2018-01-17] MEDS ORDERED: IPRATROPIUM NEB FS 0.5 MG/2.5 ML AMPUL.NEB NEB ONE (12:00)
[2018-01-17 12:16] LABS: TROPONIN I < 0.017 ng/mL (0.00-0.056)
--- NOTE | 2018-01-17 12:37 | NUR ---
CALLED [facility] FOR TRANSPORT ETA [id number] WAS GIVEN. TRIP#[id number]
[2018-01-17 12:46] LABS: APPEARANCE,URINE Clear (CLEAR); BILIRUBIN,URINE Negative (NEGATIVE); BLOOD, URINE Trace-lysed Ery/uL (NEGATIVE); COLOR,URINE Yellow (YELLOW); KETONES,URINE Negative (NEGATIVE); LEUKOCYTE ESTERASE ,URINE Trace (NEGATIVE); NITRITE, URINE Negative (NEGATIVE); PH,URINE 5.5 (5.0-8.0); PROTEIN,URINE Negative (NEGATIVE); UGLUCOSE Negative (NEGATIVE); UROBILINOGEN,URINE 0.2 EU/dL (0.2)
[2018-01-17 12:52] LABS: BACTERIA,URINE Few /HPF (None Seen); RBC,URINE 0-2 /HPF (0-2); SQUAMOUS EPITHELIAL CELL,UR Few /HPF (None Seen)
[2018-01-17] MEDS ORDERED: LEVOFLOXACIN 750 MG /D5W 150ML 150 ML IV ONE ×2 (13:00→13:14)
--- NOTE | 2018-01-17 13:27 | NUR ---
PATIENT'S DAUGHTER SAID THAT THE PATIENT IS PROGRESSIVELY GETTING WEAKER AND DROWSY FOR THE LAST 4-[address] ANDERS MADE AWARE.
--- NOTE | 2018-01-17 13:35 | NUR ---
REPORT GIVEN TO ROSSY MILLARD FOR AUGUST TELE [phone]
[2018-01-17] MEDS ORDERED: ACETAMINOPHEN 325 MG TABLET PO PRN (14:00)
[2018-01-17] MEDS ORDERED: ALBUTEROL FS 2.5 MG/3 ML VIAL.NEB NEB PRN ×2 (14:00→14:30)
[2018-01-17] MEDS ORDERED: HYDROCODONE/APAP 5/325MG 1 EACH TABLET PO PRN (14:00)
[2018-01-17] MEDS ORDERED: BISACODYL SUPP (10 MG) 10 MG/SUPP.RECT SUPP.RECT RC PRN (14:00)
[2018-01-17] MEDS ORDERED: Medication Not On Formulary EA (Ipratropium/Albuterol Sulfate (Duoneb 2.5-0.5 Mg/3 Ml So IH PRN (14:00)
[2018-01-17] MEDS ORDERED: MAGNESIUM HYDROXIDE 30 ML UDC PO PRN ×2 (14:00)
[2018-01-17] MEDS ORDERED: ONDANSETRON HCL/PF 4 MG/2 ML VIAL IVP PRN (14:00)
[2018-01-17] MEDS ORDERED: Z GUARD REMEDY 2 OZ OINT TP PRN (14:00)
[2018-01-17] MEDS ORDERED: DEXTROSE 50%-WATER 50 ML DISP.SYRIN IV PRN (14:00)
[2018-01-17] MEDS ORDERED: ENOXAPARIN SODIUM 40 MG/0.4 ML DISP.SYRIN SQ SCH (14:00)
[2018-01-17] MEDS ORDERED: NA PHOS,M-B/NA PHOS,DI-BA 1 EA ENEMA RC PRN (14:00)
[2018-01-17] MEDS ORDERED: MAG HYDROX/AL HYDROX/SIMETH 30 ML UDC PO PRN ×2 (14:00)
--- NOTE | 2018-01-17 14:00 | NUR ---
TELE/RN OPENING NOTE RECEIVED PATIENT ON A GURNEY. AWAKE. ALERT AND ORIENTED X2. RESPIRATION REGULAR AND UNLABORED. DENIES SOB. OXYGEN ON 3L/MIN VIA NC AND OXYGEN SATURATION AT 97%. DENIES PAIN AT THIS TIME. BED LOW AND LOCKED. SIDE RAILS UP X3. CALL LIGHT WITHIN REACH. WILL CONTINUE TO MONITOR.
[2018-01-17] MEDS ORDERED: IPRATROPIUM NEB FS 0.5 MG/2.5 ML AMPUL.NEB NEB PRN (14:30)
--- NOTE | 2018-01-17 15:15 | NUR ---
RECIEVED A CALL FROM RADIOLOGIST, REGARDING THE PATIENT HAS A HEAD BLEED. ADMITTING DR WINTER WAS NOTIFIED.
[2018-01-17] MEDS ORDERED: Medication Not On Formulary EA (Ipratropium/Albuterol Sulfate (Duoneb 2.5-0.5 Mg/3 Ml So IH SCH (15:30)
--- NOTE | 2018-01-17 15:30 | NUR ---
NOTIFIED ROSSY MILLARD REGARDING THE CT HEAD RESULT.
--- NOTE | 2018-01-17 15:32 | NUR ---
TELE/RN RECEIVED CALL FROM SECURITY CHECKER (MANUELITO) INFORMING DR WINTER MADE AWARE OF HEAD CT RESULT.
--- NOTE | 2018-01-17 15:37 | NUR ---
CALLED DR ANDERS AND MADE AWARE OF THE CT HEAD RESULT.
--- NOTE | 2018-01-17 15:38 | NUR ---
TELE/RN NOTE DIALING NUMBER OF DR WINTER. CHARGE NURSE RECEIVED CALL FROM DR WINTER WITH ORDER TO TRANSFER THE PATIENT TO ICU.
--- NOTE | 2018-01-17 16:00 | NUR ---
TELE/RN NOTE PATIENT IS TRANSFERRED TO ICU AND REPORT GIVEN.
--- NOTE | 2018-01-17 16:15 | NUR ---
FRUIT AND VEGETABLE FACTORY WORKER RECEIVED PT FROM TELE/3RD BY BED WITH MONITOR. REPORT RECEIVED FROM COMMUNITY COORDINATOR FOR [employer]. PT TRANSFERRED FOR INTRACRANIAL BLEED. DAUGHTER WITH PT TALKING WITH DR WINTER. PT AROUSEABLE, FOLLOWING COMMANDS THROUGH [employer] COMPLEMENTARY HEALTH THERAPISTS, SPEECH CLEAR, EXTREMITIES WEAK.
[2018-01-17] MEDS: IPRATROPIUM NEB FS 0.5 MG/2.5 ML AMPUL.NEB NEB SCH ×2 (16:25→23:41)
[2018-01-17] MEDS: ALBUTEROL FS 2.5 MG/3 ML VIAL.NEB NEB SCH ×2 (16:25→23:41)
[2018-01-17] MEDS: GUAIFENESIN 300 MG/15 ML UDC PO SCH (16:49)
[2018-01-17] MEDS: BLOOD SUGAR DIAGNOSTIC 1 EACH STRIP VI SCH ×2 (16:55→22:33)
--- NOTE | 2018-01-17 17:00 | NUR ---
RN NOTES PT IS NPO AT THIS TIME FOR POSSIBLE SURGERY .
[2018-01-17] MEDS ORDERED: DEXAMETHASONE SOD PHOSPHATE 10 MG/ML VIAL IV ONE (17:30)
--- NOTE | 2018-01-17 18:11 | NUR ---
RN NOTES PT REMANS THE SAME, VSS STABLE , FOLLOWS COMMANDS, L HAND IV G 20 AND RFA IV G 20 SITES CDI, SR UP x3, CALL LIGHT WITHIN EASY REACH, NO NEW NEUROLOGICAL CHANGES NOTED , WILL ENDORSE TO PM NURSE FOR AUGUST .
--- NOTE | 2018-01-17 19:30 | NUR ---
ICU/RN NOTES: RECEIVED PT. IN BED W/ HOB ELEVATED. GAMBIAN/ARAB SPEAKING. ON TELE MONITOR SR @ 81. PT. ALERT, AWAKE FIXING HER HER W/ HER HANDS. HAS RT. WRIST AND LFA G 20 SL C/D/I. PATENT AND INTACT W/ NO S/S OF INFECTION/INFILTRATION NOTED. PT. IS PICKING ON HER LEDS. NO FACIAL GRIMACES OR MOANING NOTED. O2 @ 3LPM VIA N/C SAT. 94%. NO S/S OF RESPIRATORY DISTRESS NOTED. CALL LIGHT W/ REACH. BEDS LOCKED AND IN LOW POSITION. BED ALARM ON. WILL CONTINUE TO MONITOR.
--- NOTE | 2018-01-17 20:30 | NUR ---
ICU/RN NOTES: CEE JAIME VISITED PT. [phone]. PT. VERBALLY RESPONSIVE TO SON.
[2018-01-17] MEDS: DEXAMETHASONE SOD PHOSPHATE 10 MG/ML VIAL IV SCH (21:07)
[2018-01-17] MEDS: METOPROLOL TARTRATE 25 MG TABLET PO SCH (21:08)
--- NOTE | 2018-01-17 21:10 | NUR ---
ICU/RN NOTES: SUE BABCOCK ON FLOOR. CAN PATCHER NURSE INFORMED SUE SET UP AND CHARGER ABOUT THE CT OF THE HEAD AND PT. STATUS. PT. PASSES SWALLOW EVAL. PER SUE SET UP AND CHARGER ON FOR CLEAR LIQUIDS. CALL LIGHT W/ REACH.
--- NOTE | 2018-01-17 22:00 | NUR ---
RN/ICU NOTES: PT. BLOOD SUGAR 164. PT. ABLE TO SWALLOW MEDS W/ APPLE JUICE W/ NO DIFFICULTY. CALL LIGHT W/ REACH.
[2018-01-17] MEDS: *INSULIN REGULAR(HUMULIN R)HUM 100 UNIT/ML VIAL SQ PRN (22:42)
[2018-01-18] VITALS (26 sets, daily range): BP systolic 125–169; BP diastolic 52–131
[2018-01-18] MEDS: DEXAMETHASONE SOD PHOSPHATE 10 MG/ML VIAL IV SCH ×6 (00:30→20:28)
[2018-01-18 04:42] LABS: BASOPHILS % (AUTO) 0.1 % (0.0-2.0); HEMATOCRIT 27 % (33-45); HEMOGLOBIN 8.7 g/dL (11.5-14.8); LYMPHOCYTES # (AUTO) 0.4 /CMM (0.8-4.8); LYMPHOCYTES % (AUTO) 12.6 % (20.0-44.0); MEAN CORPUSCULAR HEMOGLOBIN 26 PG (26.0-33.0); MEAN CORPUSCULAR HGB CONC 32 g/dl (31.0-36.0); MEAN CORPUSCULAR VOLUME 80 fL (82-100); MONOCYTES % (AUTO) 1.3 % (2.0-12.0); NEUTROPHILS # (AUTO) 2.7 /CMM (1.8-8.9); PLATELET COUNT (AUTO) 351 /CMM (150-450); RDW COEFFICIENT OF VARIATION 17.4 (11.5-15.0); RED BLOOD CELL COUNT(AUTO) 3.36 MIL/uL (4.0-5.2); WHITE BLOOD COUNT (AUTO) 3.2 K/uL (4.3-11.0)
[2018-01-18 05:03] LABS: CALCIUM, SERUM 9.4 mg/dL (8.5-10.1); CARBON DIOXIDE 26 mmol/L (21-32); CHLORIDE 100 mmol/L (98-107); CREATININE 0.9 mg/dL (0.6-1.3); GLUCOSE 198 mg/dL (74-106); PHOSPHORUS 3.9 mg/dL (2.5-4.9); POTASSIUM 4.5 mmol/L (3.5-5.1); SODIUM SERUM 135 mmol/L (136-145); UREA NITROGEN, BLOOD 21 mg/dL (7-18)
--- NOTE | 2018-01-18 07:19 | NUR ---
RN/ICU NOTES: NO ACUTE CHANGES NOTED DURING THIS SHIFT. REPORT GIVEN TO AM NURSE FOR AUGUST.
--- NOTE | 2018-01-18 07:30 | NUR ---
PELOTA MAKER INITIAL NOTES RECEIVED PATIENT AWAKE IN BED, AOX1-2, CONFUSED AND DISORIENTED, MALDIVIAN. ARAB SPEAKING, PULLING ON LEADS, REMOVING NASAL CANNULA REORIENTED OFTEN, NC 3L SATURATING 88-94% 02, ON TELE MONITOR SR 93 HR, IN DIAPER R FA SL, CLEAN AND PATENT, BED IN LOW AND LOCKED POSITION CALL LIGHT WITHIN REACH, FABIO CONTINUE TO MONITOR.
[2018-01-18] MEDS: BLOOD SUGAR DIAGNOSTIC 1 EACH STRIP VI SCH ×4 (08:01→22:00)
[2018-01-18] MEDS: INSULIN REGULAR, HUMAN 100 UNIT/ML 3 ML VIAL SQ PRN ×3 (08:12→17:25)
[2018-01-18] MEDS: MULTIVIT, IRON, MIN NO. 8, FA 1 TAB PO SCH (08:17)
[2018-01-18] MEDS: GUAIFENESIN 300 MG/15 ML UDC PO SCH ×3 (08:17→17:12)
[2018-01-18] MEDS: DOCUSATE SODIUM 100 MG CAPSULE PO SCH (08:17)
[2018-01-18] MEDS: PANTOPRAZOLE 40 MG TABLET.DR PO SCH (08:17)
[2018-01-18] MEDS: METOPROLOL TARTRATE 25 MG TABLET PO SCH ×2 (08:17→20:29)
[2018-01-18] MEDS: AMLODIPINE BESYLATE 5 MG TABLET PO SCH (08:18)
[2018-01-18] MEDS: ALBUTEROL FS 2.5 MG/3 ML VIAL.NEB NEB SCH ×3 (08:30→23:07)
[2018-01-18] MEDS: IPRATROPIUM NEB FS 0.5 MG/2.5 ML AMPUL.NEB NEB SCH ×3 (08:30→23:07)
--- NOTE | 2018-01-18 08:30 | NUR ---
PAID INTERN NOTES PATIENT SEEN BY SPEECH THERAPIST FOR SWALLOW EVALUATION, OK TO ADVANCE DIET.
--- NOTE | 2018-01-18 10:25 | NUR ---
PRINCIPAL TECHNOLOGIST NOTES PATIENT SEEN BY DR WINTER, NO NEUROSURGERY AT THIS TIME, REPEAT HEAD CT ORDERS GIVEN, WILL CONTINUE TO MONITOR AND DO NEURO CHECKS, NO NEURO CHANGES NOTED AT THIS TIME, AT BEDSIDE.
[2018-01-18] MEDS: LEVOFLOXACIN 500 MG /D5W 100ML 500 MG in PREMIX 1 EA IV SCH (12:27)
[2018-01-18] MEDS: Z GUARD REMEDY 2 OZ OINT TP SCH ×2 (15:58→20:29)
[2018-01-18] MEDS: BOOST GLUCOSE CONTROL VANILLA 237 ML BOX PO SCH (18:37)
--- NOTE | 2018-01-18 18:54 | NUR ---
INTEGRATED MARKETING SPECIALIST NOTES PATIENT RESTING IN BED, NO SIGNS OF DISTRESS, NO SIGNS OF ACUTE MENTAL STATUS CHANGES DURING SHIFT, SITTER AT BEDSIDE FOR SAFETY, PATIENT CLEAN AND DRY, WILL ENDORSE TO MOTTLER OPERATOR FOR CONTINUITY OF CARE.
--- NOTE | 2018-01-18 19:45 | NUR ---
ICU/MEAT SPECIALIST RECEIVED REPORT FROM DAY NURSE. PT APPEART ALERT TO SELF, APPEARS PRESENTLY CONFUSED WHICH REQUIRES FREQUENT ORT. PT TRIES TO GET OF BED, ALSO TAKES OFF LEADS, ALSO REFUSED TO BE CLEANED AND CHANGED. PT IS ON 3 LITER VIA N/C SATS ARE 89%, WITH A PRODUCTIVE COUGH. NO ACUTE RESPIRATORY DISTRESS SEEN AT THIS TIME. WILL CONTINUE TO MONITOR THIS PT.
[2018-01-18] MEDS: ZOLPIDEM TARTRATE 5 MG TABLET PO PRN (20:28)
--- NOTE | 2018-01-18 21:30 | NUR ---
ICU/MIDDLE SCHOOL MUSIC TEACHER PT APPEARS TO BE SLIGHTLY AGITATED, BUT ALSO APPEARS TO BE CLOSING HER EYES. PT APPEARS SLEEPY AT THIS TIME. AMBIEN PRN GIVEN AT THIS TIME. DAY NURSE SAID PT HAS NOT RESTED ALL DAY LONG. WILL CONTINUE TO MONITOR THIS PT.
--- NOTE | 2018-01-18 22:30 | NUR ---
ICU/CREAM DIPPER PT'S HS BS IS 133, WHICH REQUIRES 2 UNITS REGULAR INSULIN. WILL CONTINUE TO MONITOR PT'S SUGAR ORDERED BY .
[2018-01-18] MEDS: *INSULIN REGULAR(HUMULIN R)HUM 100 UNIT/ML VIAL SQ PRN (22:36)
[2018-01-19] VITALS (26 sets, daily range): BP systolic 114–151; BP diastolic 51–101
[2018-01-19] MEDS: DEXAMETHASONE SOD PHOSPHATE 10 MG/ML VIAL IV SCH ×6 (00:55→20:34)
--- NOTE | 2018-01-19 01:10 | NUR ---
ICU/SUPERVISOR LABORATORY PT CONTINUES TO BE RESTLESS, TRYING TO GET OUT OF BED. TAKING OFF OXYGEN THEN DESATS TO 70'S. REQUIRES FREQUENT ORT TO ROOM AND EQUIPMENT. PT STILL REQUIRES A SITTER FOR SAFETY.
--- NOTE | 2018-01-19 04:50 | NUR ---
ICU/CLINICAL EDUCATION ACADEMIC COORDINATOR PT CONTINUES TO BE RESTLESS, TRYING TO GET OUT OF BED. TAKING OFF OXYGEN THEN DESATS TO 70'S. REQUIRES FREQUENT ORT TO ROOM AND EQUIPMENT. PT STILL REQUIRES A SITTER FOR SAFETY.
--- NOTE | 2018-01-19 07:35 | NUR ---
SALON PROFESSIONAL RECEIVED PATIENT FROM THE PREVIOUS SHIFT. PATIENT IS IN BED. RESTING COMFORTABLY. NO ACUTE DISTRESS NOTED. SITTER AT BEDSIDE FOR SAFETY. STABLE VITAL SINGS. ABLE TO VERBALIZE NEEDS. REPOSITIONED IN BED. WILL CONTINUE TO MONITOR AND PROVIDE CARE.
[2018-01-19] MEDS: BLOOD SUGAR DIAGNOSTIC 1 EACH STRIP VI SCH ×4 (08:00→21:32)
[2018-01-19] MEDS: BOOST GLUCOSE CONTROL VANILLA 237 ML BOX PO SCH ×2 (08:01→16:47)
[2018-01-19] MEDS: Z GUARD REMEDY 2 OZ OINT TP SCH ×2 (08:01→20:36)
[2018-01-19] MEDS: INSULIN REGULAR, HUMAN 100 UNIT/ML 3 ML VIAL SQ PRN (08:07)
[2018-01-19] MEDS: MULTIVIT, IRON, MIN NO. 8, FA 1 TAB PO SCH (08:08)
[2018-01-19] MEDS: DOCUSATE SODIUM 100 MG CAPSULE PO SCH (08:08)
[2018-01-19] MEDS: GUAIFENESIN 300 MG/15 ML UDC PO SCH ×3 (08:08→16:45)
[2018-01-19] MEDS: METOPROLOL TARTRATE 25 MG TABLET PO SCH ×2 (08:08→20:34)
[2018-01-19] MEDS: AMLODIPINE BESYLATE 5 MG TABLET PO SCH (08:08)
[2018-01-19] MEDS: PANTOPRAZOLE 40 MG TABLET.DR PO SCH (08:08)
[2018-01-19] MEDS: MUPIROCIN OINT 2% 22 GM TUBE SCH ×2 (08:09→20:35)
[2018-01-19] MEDS: ALBUTEROL FS 2.5 MG/3 ML VIAL.NEB NEB SCH ×3 (08:17→22:40)
[2018-01-19] MEDS: IPRATROPIUM NEB FS 0.5 MG/2.5 ML AMPUL.NEB NEB SCH ×3 (08:17→22:40)
[2018-01-19 08:47] LABS: BASOPHILS % (AUTO) 0.1 % (0.0-2.0); CALCIUM, SERUM 9.1 mg/dL (8.5-10.1); CARBON DIOXIDE 27 mmol/L (21-32); CHLORIDE 100 mmol/L (98-107); CREATININE 0.9 mg/dL (0.6-1.3); EOSINOPHILS % (AUTO) 0.1 % (0.0-6.0); GLUCOSE 199 mg/dL (74-106); HEMATOCRIT 27 % (33-45); LYMPHOCYTES # (AUTO) 0.6 /CMM (0.8-4.8); LYMPHOCYTES % (AUTO) 12.7 % (20.0-44.0); MEAN CORPUSCULAR HEMOGLOBIN 26 PG (26.0-33.0); MEAN CORPUSCULAR HGB CONC 33 g/dl (31.0-36.0); MEAN CORPUSCULAR VOLUME 79 fL (82-100); MONOCYTES # (AUTO) 0.1 /CMM (0.1-1.30); MONOCYTES % (AUTO) 1.4 % (2.0-12.0); NEUTROPHILS # (AUTO) 3.8 /CMM (1.8-8.9); NEUTROPHILS % (AUTO) 85.7 % (43.0-81.0); PLATELET COUNT (AUTO) 418 /CMM (150-450); RDW COEFFICIENT OF VARIATION 16.9 (11.5-15.0); RED BLOOD CELL COUNT(AUTO) 3.47 MIL/uL (4.0-5.2); SODIUM SERUM 137 mmol/L (136-145); UREA NITROGEN, BLOOD 24 mg/dL (7-18); WHITE BLOOD COUNT (AUTO) 4.5 K/uL (4.3-11.0)
[2018-01-19] MEDS: LEVOFLOXACIN 500 MG /D5W 100ML 500 MG in PREMIX 1 EA IV SCH (12:13)
--- NOTE | 2018-01-19 14:42 | NUR ---
ENGINEER FIRST ASSISTANT CALLED RADIOLOGY REGARDING THE CTA. PER FREIGHT BRAKE OPERATOR UNABLE TO DO THE CTA BECAUSE PATIENT JUST ATE. WILL FOLLOW UP WITH THEM IN AN HOUR WHEN FAMILY IS HERE. PATIENT NEEDS A FAMILY MEMBER NEXT TO HER DURING CTA TO BE GUIDED. FAXED MEDICAL RECORDS REQUEST TO [facility] REGARDING NEURORADIOLOGY RESULTS. THEIR MEDICAL RECORDS ARE CLOSED IN THE WEEKEND.
[2018-01-19] MEDS ORDERED: IOHEXOL-350 100 ML VIAL IV ONE (15:07)
[2018-01-19] MEDS ORDERED: IV NS 0.9% 250 ML IV ONE (15:07)
[2018-01-19] MEDS: *INSULIN REGULAR(HUMULIN R)HUM 100 UNIT/ML VIAL SQ PRN ×2 (16:46→21:29)
--- NOTE | 2018-01-19 19:41 | NUR ---
1[facility] RN NOTES RECEIVED PTS IN BED AWAKE ALERT AND RESPONSIVE , GHANAIAN SPEAKING, WITH PERIOD OF CONFUSION, SITTER AT BEDSIDE FOR SAFETY , VITALS STABLE AFEBRILE, ON CONTACT ISOLATION FOR MRSA NARES , PRECAUTIONARY MEASURES OBSERVED .ALL NEEDS ATTENDED TOO CALL LIGHT WITHIN REACH KEPT PTS CLEAN DRY AND COMFORTABLE , ALL DUE MEDS GIVEN ORDERED .
--- NOTE | 2018-01-19 21:48 | NUR ---
HHAS NOTES BLOOD SUGAR FOR 10PM IS 200 MG/DL 3 UNITS OF REGULAR INSULIN GIVEN PER SLIDING SCALE PTS OFFERED APPLE JUICE WILL CHECK BLOOD SUGAR AGAIN IN AM.
[2018-01-19] MEDS: ZOLPIDEM TARTRATE 5 MG TABLET PO PRN (22:20)
--- NOTE | 2018-01-19 22:23 | NUR ---
MAINTENANCE AND CUSTODIAN SUPERVISOR NOTES AMBIEN 5MG GIVEN PO ORDERED.
[2018-01-20] VITALS (20 sets, daily range): BP systolic 124–174; BP diastolic 57–96
[2018-01-20] MEDS: DEXAMETHASONE SOD PHOSPHATE 10 MG/ML VIAL IV SCH ×6 (00:42→22:06)
--- NOTE | 2018-01-20 06:07 | NUR ---
SUPERINTENDENT JOB NOTES PTS IN BED AWAKE AND RESPONSIVE , NO SOB NO DISTRESS NOTED ALL NEEDS ATTENDED TO CALL LIGHTS WITHIN REACH , BED ALARM ON FOR SAFETY STILL NOTED WITH PERIODS OF CONFUSION , WILL ENDORSE TO RN DAY SHIFT FOR CONTINUITY OF CARE.
--- NOTE | 2018-01-20 07:57 | NUR ---
ICU/RN: INITIAL NOTES,AM RECEIVED REPORT FROM NIGHT NURSE. PT RESTING IN BED COMFORTABLY. PT ALERT, FOLLOWS COMMANDS, CONFUSED. SITTER AT BEDSIDE. ON NASAL CANULA, NO ACUTE DISTRESS NOTED AT THIS TIME, MAINTAINING 02 SAT >90%. PT SINUS ON TELE. ON MECHANICAL SOFT DIET. LEFT UA MIDLINE, PATENT AND INTACT, NO S/S OF INFECTION OR INFILTRATION NOTED. ISOLATION OBSERVED FOR MRSA NARES. PT ON DIAPER, ABLE TO TURN AND REPOSITION SELF IN BED. ALL NEEDS WILL BE ATTENDED TO, SAFETY MEASURES TAKEN, BED IN LOW POSITION, SIDE RAILS UP, CALL LIGHT WITHIN REACH. WILL CONTINUE TO MONITOR AND ASSESS.
[2018-01-20] MEDS: PANTOPRAZOLE 40 MG TABLET.DR PO SCH (08:10)
[2018-01-20] MEDS: BLOOD SUGAR DIAGNOSTIC 1 EACH STRIP VI SCH ×4 (08:10→22:07)
[2018-01-20] MEDS: AMLODIPINE BESYLATE 5 MG TABLET PO SCH (08:10)
[2018-01-20] MEDS: MULTIVIT, IRON, MIN NO. 8, FA 1 TAB PO SCH (08:11)
[2018-01-20] MEDS: METOPROLOL TARTRATE 25 MG TABLET PO SCH (08:11)
[2018-01-20] MEDS: GUAIFENESIN 300 MG/15 ML UDC PO SCH ×3 (08:11→17:14)
[2018-01-20] MEDS: Z GUARD REMEDY 2 OZ OINT TP SCH ×2 (08:12→21:00)
[2018-01-20] MEDS: BOOST GLUCOSE CONTROL VANILLA 237 ML BOX PO SCH ×2 (08:15→17:15)
[2018-01-20] MEDS: IPRATROPIUM NEB FS 0.5 MG/2.5 ML AMPUL.NEB NEB SCH ×2 (08:15→15:01)
[2018-01-20] MEDS: DOCUSATE SODIUM 100 MG CAPSULE PO SCH (08:15)
[2018-01-20] MEDS: MUPIROCIN OINT 2% 22 GM TUBE SCH ×2 (08:17→21:00)
[2018-01-20] MEDS: ALBUTEROL FS 2.5 MG/3 ML VIAL.NEB NEB SCH ×2 (08:18→15:04)
[2018-01-20] MEDS: *INSULIN REGULAR(HUMULIN R)HUM 100 UNIT/ML VIAL SQ PRN (08:20)
[2018-01-20] MEDS: CARVEDILOL 6.25 MG TABLET PO SCH ×2 (09:42→22:06)
[2018-01-20] MEDS: INSULIN REGULAR, HUMAN 100 UNIT/ML 3 ML VIAL SQ PRN ×3 (12:25→22:09)
[2018-01-20] MEDS: LEVOFLOXACIN 500 MG /D5W 100ML 500 MG in PREMIX 1 EA IV SCH (12:25)
--- NOTE | 2018-01-20 18:30 | NUR ---
ICU/RN: PT TRANSFERRED TO [facility]-. ALL BELONGINGS AND MEDICATIONS TRANSFERRED WITH PT. PT ON ISOLATION PRECAUTIONS FOR MRSA NARES. PT ON NASAL CANULA, NO ACUTE DISTRESS NOTED. SITTER AT BEDSIDE. ALL NEEDS ATTENDED TO, SAFETY MEASURES TAKEN.
--- NOTE | 2018-01-20 19:00 | NUR ---
ICU/RN ENDING NOTES,AM PT TRANSFERRED FROM ICU. ALL BELONGINGS AND MEDICATIONS TRANSFERRED WITH PT. PT ON ISOLATION PRECAUTIONS FOR MRSA NARES. PT ON NASAL CANULA, NO ACUTE DISTRESS NOTED. PT ON NASAL CANULA, NO ACUTE DISTRESS NOTED AT THIS TIME. SINUS ON TELE. SITTER AT BEDSIDE. ALL NEEDS ATTENDED TO, SAFETY MEASURES TAKEN. BED BATH GIVEN. PT ABLE TO TURN AND REPOSITION SELF. SITTER AT BEDSIDE. PT ATTEMPTING TO GET OUT OF BED, PULLING OF ELECTRODES AND IV.
[2018-01-21] VITALS: BP 158/89
[2018-01-21] MEDS: DEXAMETHASONE SOD PHOSPHATE 10 MG/ML VIAL IV SCH ×4 (00:55→12:03)
[2018-01-21] MEDS: ZOLPIDEM TARTRATE 5 MG TABLET PO PRN (01:01)
[2018-01-21 04:00] VITALS: BP 139/77
[2018-01-21] MEDS: BLOOD SUGAR DIAGNOSTIC 1 EACH STRIP VI SCH ×2 (06:55→12:03)
[2018-01-21] MEDS: INSULIN REGULAR, HUMAN 100 UNIT/ML 3 ML VIAL SQ PRN ×2 (06:56→12:05)
--- NOTE | 2018-01-21 07:12 | NUR ---
TD RN OPENING RECEIVED PATIENT SLEEPING WITH SITTER AT SIDE. PATIENT APPEARS STABLE WITH NO SOB, DIFFICULTY BREATHING OR S/S PAIN. NASAL CANNULA ON 3LPM WILL TITRATE TOLERATED. PATIENT NEEDS IN REACH, BED LOWERED AND LOCKED, RAILS UPX3 FOR SAFETY AND CALL LIGHT INR REACH. WILL ROUND Q1H OR LESS PER NEEDS.
--- NOTE | 2018-01-21 07:37 | NUR ---
TD RN NOTES ATTEMPTED TO GIVE PATIENT BOOST AND PROTONIX. REFUSING AT THIS TIME. WILL TRY AGAIN
[2018-01-21 08:00] VITALS: BP 150/71
[2018-01-21] MEDS: MULTIVIT, IRON, MIN NO. 8, FA 1 TAB PO SCH (08:23)
[2018-01-21] MEDS: PANTOPRAZOLE 40 MG TABLET.DR PO SCH (08:23)
[2018-01-21] MEDS: DOCUSATE SODIUM 100 MG CAPSULE PO SCH (08:23)
[2018-01-21] MEDS: Z GUARD REMEDY 2 OZ OINT TP SCH (08:23)
[2018-01-21] MEDS: GUAIFENESIN 300 MG/15 ML UDC PO SCH ×2 (08:23→12:03)
[2018-01-21] MEDS: CARVEDILOL 6.25 MG TABLET PO SCH (08:24)
[2018-01-21] MEDS: AMLODIPINE BESYLATE 5 MG TABLET PO SCH (08:24)
[2018-01-21] MEDS: BOOST GLUCOSE CONTROL VANILLA 237 ML BOX PO SCH (08:35)
[2018-01-21] MEDS: MUPIROCIN OINT 2% 22 GM TUBE SCH (08:35)
[2018-01-21] MEDS: IPRATROPIUM NEB FS 0.5 MG/2.5 ML AMPUL.NEB NEB SCH ×2 (08:38→15:30)
[2018-01-21] MEDS: ALBUTEROL FS 2.5 MG/3 ML VIAL.NEB NEB SCH ×2 (08:39→15:30)
[2018-01-21] MEDS ORDERED: LEVOFLOXACIN (750 MG) 750 MG TABLET PO SCH (09:00)
--- NOTE | 2018-01-21 10:39 | NUR ---
DESIREE RN NOTES DAUGHTER BHAVYA PHONE# [phone] YAN HER FOR UPDATE. WILL NOTIFY
[2018-01-21 12:00] VITALS: BP 140/70
[2018-01-21] MEDS ORDERED: CARV6.252 PO (14:38)
[2018-01-21] MEDS ORDERED: LEVO500T75 PO (14:38)
[2018-01-21] MEDS ORDERED: AMLO5TAB2 PO (14:38)
--- NOTE | 2018-01-21 14:54 | NUR ---
TD RN NOTES CONFIRMED WITH DR WINTER TO DISREGARD AND CANCEL AMPICILLIN ORDER. DO NOT GIVE THIS TO PATIENT. CONTINUE ONLY WITH ORDERED LEVAQUIN PO FOR DISCHARGE. ATTEMPTED TO CALL [facility] X2 AND PER FACILITY CALL BACK LATER FOR REPORT. FACILITY IS AWARE WHEN PATIENT IS BEING DISCHARGED
--- NOTE | 2018-01-21 15:46 | NUR ---
TD RN NOTES SPOKE TO PATIENT DAUGHTER TO NOTIFY OF DISCHARGE.
--- NOTE | 2018-01-21 15:50 | NUR ---
DESIREE RN NOTES CALLED AND SPOKE WITH MAL BLAIR AT [facility] AND GAVE REPORT. ALL QUESTIONS ANSWERED
[2018-01-21 16:00] VITALS: BP 138/77
[2018-01-21] MEDS ORDERED: AMPICILLIN 500 MG in IV NS 0.9% 50 ML IV SCH (16:00)
--- NOTE | 2018-01-21 16:28 | NUR ---
TD RN NOTES PATIENT REPORT GIVEN TO EMT. CARE TRANSFERRED. PATIENT LEFT IN STABLE CONDITION.
[2018-01-21] MEDS ORDERED: AMLODIPINE BESYLATE 5 MG TABLET PO SCH (17:00)
[2018-01-28] MEDS ORDERED: AMLO5TAB2 PO (15:50)
== END 2018-01-21 16:50 | DRG 64 ==
LOC: ER 10:07 → TELE 13:11 → ICU 15:57 → TELE 16:12 → ICU 16:13 → TELE-TD 01-20 17:57
PROVIDERS: ADMIT Internal Medicine; ATTEND Internal Medicine
PROC: 05H633Z Insertion of Infusion Device into Left Subclavian Vein, Percutaneous Approach (ICD-10-PCS; principal; 2018-01-18)
PROC: B547ZZA Ultrasonography of Left Subclavian Vein, Guidance (ICD-10-PCS; 2018-01-18)
DX: I61.9 Nontraumatic intracerebral hemorrhage, unspecified (principal); G93.6 Cerebral edema; J15.9 Unspecified bacterial pneumonia; I11.0 Hypertensive heart disease with heart failure; E11.9 Type 2 diabetes mellitus without complications; F03.90 Unspecified dementia, unspecified severity, without behavioral disturbance, psychotic disturbance, mood disturbance, and anxiety; I50.32 Chronic diastolic (congestive) heart failure; R47.01 Aphasia; J32.3 Chronic sphenoidal sinusitis; J44.9 Chronic obstructive pulmonary disease, unspecified; G89.29 Other chronic pain; M19.90 Unspecified osteoarthritis, unspecified site; Z79.899 Other long term (current) drug therapy; K21.9 Gastro-esophageal reflux disease without esophagitis; Z86.73 Personal history of transient ischemic attack (TIA), and cerebral infarction without residual deficits
CPT/HCPCS: 36415; 36569; 70450-TC; 70496-TC; 71045-TC; 80048-TC; 80076-TC; 81000-TC; 82962-TC; 83605-TC; 83735-TC; 84100-TC; 84484-TC; 85025-TC; 85730-TC; 87040-TC; 87081-TC; 87086-TC; 87186-TC; 92611-TC; 93307-TC; 94799-TC; 97110-TC; 97112-TC; 97530-TC; 99082-TC; A4216; A4606; C1769; J0290; J1100; J1650; J1815; J1956; J7030; J7050; Q9967; Z7610

== ENCOUNTER 2018-01-28 13:26 | Inpatient (IN) | payer MEDICARE, OTHER ==
[2018-01-28] VITALS (12 sets, daily range): BP systolic 88–147; BP diastolic 43–86
[~2018-01-28] VITALS: Ht 167.6 cm; Wt 67.7 kg
[~2018-01-28 13:26] MED LIST changes: +ACET-2605 PO; +ACET-868 PO; -ALBUT2 NEB; +AMLO5TAB7 PO; +BISA10SU8 RC; -BISO5TAB2 PO; +CARV6.252 PO; -CLON0.1T PO; +DOCU-141 PO; -ESCI10TA PO; -FAMO20TA8 PO; -FERR325T28 PO; +GUAI100S11 PO; +IPRA3AMP23 IH; -Ipratropium Bromide NEB; +MAG30ORA PO; +MAGN400O6 PO; +METO25TA20 PO; +MULT-447 PO; +NA P133E RC; +PANT40TA2 PO; -PILO5TAB PO; -POTA-88 PO; -PRED10TA PO; -PREG150C PO; +SITA100T PO; -SULF1TAB3 PO
[2018-01-28] MEDS ORDERED: ETOMIDATE 2 MG/ML VIAL IV ONE (13:28)
[2018-01-28] MEDS ORDERED: ROCURONIUM BROMIDE 50 MG/5 ML IV ONE (13:28)
--- NOTE | 2018-01-28 13:30 | NUR ---
[id number] FROM SNF: S/P WITNESSED ADULT SEIZURE. VOMITING. ASPIRATION. PT ARRIVED IN THE ER NON RESPONSIVE TO VERBAL AND TACTILE STIMULI, PT WAS PUT ON MONITOR, AT .
--- NOTE | 2018-01-28 13:35 | NUR ---
OBTAINED IV ACCESS ON R HAND WITH 20G - ROCURIUM 100MG AND ETOMIDATE 20MG, WITH MD AND RT AT . PLACEMENT OF ET TUBE WAS CONFIRMED WITH 21 CM LIP, SIZE 7.5.
--- NOTE | 2018-01-28 13:50 | NUR ---
PHLEBOTOMY BEDSIDE FOR BLOOD DRAW.
--- NOTE | 2018-01-28 13:51 | NUR ---
EMT BEDSIDE FOR EKG
--- NOTE | 2018-01-28 13:53 | NUR ---
CALLED NURSING SUP. FOR ICU BED
[2018-01-28] MEDS ORDERED: IV NS 0.9% 1,000 ML BAG IV ONE (14:00)
[2018-01-28 14:05] LABS: BASOPHILS # (AUTO) 0.5 /CMM (0.0-0.2); BASOPHILS % (AUTO) 4.2 % (0.0-2.0); EOSINOPHILS % (AUTO) 0.5 % (0.0-6.0); HEMATOCRIT 28 % (33-45); HEMOGLOBIN 9.1 g/dL (11.5-14.8); LYMPHOCYTES # (AUTO) 1.5 /CMM (0.8-4.8); LYMPHOCYTES % (AUTO) 12.1 % (20.0-44.0); MEAN CORPUSCULAR HGB CONC 32 g/dl (31.0-36.0); MEAN CORPUSCULAR VOLUME 79 fL (82-100); MONOCYTES # (AUTO) 0.6 /CMM (0.1-1.30); NEUTROPHILS % (AUTO) 78.2 % (43.0-81.0); PLATELET COUNT (AUTO) 362 /CMM (150-450); RDW COEFFICIENT OF VARIATION 16.5 (11.5-15.0); RED BLOOD CELL COUNT(AUTO) 3.59 MIL/uL (4.0-5.2); WHITE BLOOD COUNT (AUTO) 12.7 K/uL (4.3-11.0)
[2018-01-28 14:15] LABS: CALCIUM, SERUM 8.6 mg/dL (8.5-10.1); CARBON DIOXIDE 27 mmol/L (21-32); CHLORIDE 100 mmol/L (98-107); CREATININE 0.9 mg/dL (0.6-1.3); GLUCOSE 234 mg/dL (74-106); POTASSIUM 4.4 mmol/L (3.5-5.1); SODIUM SERUM 136 mmol/L (136-145); UREA NITROGEN, BLOOD 17 mg/dL (7-18)
[2018-01-28 14:19] LABS: INR 0.86 (0.85-1.15)
[2018-01-28 14:21] LABS: ALANINE AMINOTRANSFERASE 24 U/L (12-78); ALBUMIN 2.4 g/dL (3.4-5.0); ALKALINE PHOSPHATASE 74 U/L (46-116); ASPARTATE AMINOTRANSFERASE 20 U/L (15-37); BILIRUBIN,DIRECT 0.1 mg/dL (0.0-0.2); BILIRUBIN,TOTAL 0.2 mg/dL (0.2-1.0); TOTAL PROTEIN, SERUM 7.2 g/dL (6.4-8.2)
--- NOTE | 2018-01-28 14:48 | NUR ---
ICU 259
--- NOTE | 2018-01-28 14:57 | NUR ---
NG TUBE IS INSERTED, PT SENT TO XRAY FOR CONFIRMATION OF PLACEMENT.
--- NOTE | 2018-01-28 15:08 | NUR ---
PT TO CTSCAN, WITH RT
[2018-01-28] MEDS ORDERED: PROPOFOL 100 ML ONE (15:26)
[2018-01-28] MEDS ORDERED: PROPOFOL 100 ML IV PRN (15:30)
--- NOTE | 2018-01-28 15:36 | NUR ---
RT NOTE PT INTUBATED PER MD ORDER. 7.5 ETT 21 CM @ LIP. SETTINGS PRESCRIBED AC 18 500 +5. ALARMS SET PER PROTOCOL AND AUDIBLE. VENT PLUGGED IN TO RED OUTLET. AMBU BAG AT BED SIDE. NO DISTRESS NOTED. WILL CONTINUE TO MONITOR. Addendum: 01/28/18 at 1537 by ARIEL ANDERS RT Amended: Links added.
[2018-01-28] MEDS ORDERED: AMLO5TAB7 PO (15:50)
[2018-01-28] MEDS ORDERED: CARV12.52 PO (15:50)
--- NOTE | 2018-01-28 15:58 | NUR ---
PT'S SON CELL PHONE # [phone]
[2018-01-28] MEDS ORDERED: LEVETIRACETAM (500MG) 1,000 MG in IV NS 0.9% 100 ML IV SCH (16:00)
--- NOTE | 2018-01-28 17:00 | NUR ---
FISCAL ASSISTANT- Initial Admission Notes Received pt from ER via amarilis. Pt intubated & sedated. Pt orally intubated ETT 7.5, 21 @ the lip. Respirations even and unlabored, no SOB or distress present. Bedside monitor reveals Sinus Rhythm. OGT present and clamped. Placement verified via auscultation. Two IVs present: right hand 20g HL and left hand 20g HL, running Diprivan at 15 mcg/min. Will continue to monitor.
[2018-01-28] MEDS ORDERED: FEE PK DOSING 1 MIN EA MC ONE (17:56)
[2018-01-28] MEDS: PROPOFOL 100 ML IV PRN (17:57)
[2018-01-28] MEDS ORDERED: ONDANSETRON HCL/PF 4 MG/2 ML VIAL IVP PRN (18:00)
[2018-01-28] MEDS ORDERED: MORPHINE SULFATE INJ 2 MG/ML DISP.SYRIN IV PRN (18:00)
[2018-01-28] MEDS ORDERED: ACETAMINOPHEN 325 MG TABLET PO PRN (18:00)
[2018-01-28] MEDS ORDERED: VANCOMYCIN 1 GM in IV D5W 250 ML IV SCH (18:00)
[2018-01-28] MEDS ORDERED: DEXTROSE 50%-WATER 50 ML DISP.SYRIN IV PRN (18:00)
[2018-01-28] MEDS ORDERED: ENOXAPARIN SODIUM 40 MG/0.4 ML DISP.SYRIN SQ SCH (18:00)
[2018-01-28] MEDS ORDERED: Z GUARD REMEDY 2 OZ OINT TP PRN (18:00)
--- NOTE | 2018-01-28 18:00 | NUR ---
DINKEY DRIVER- Both IVs non-functional. Charge nurse and myself unsuccessful at re-inserting new IVs. 1830- Beka Olivarez DNP at bedside inserting PICC line. Daughter signed consent.
[2018-01-28 18:27] LABS: ABG BASE EXCESS 2.3 mmol/L; ABG OXYGEN SATURATION 96.6 % (92.0-98.5); ABG PO2 91.4 mmHg (75.0-100.0); AaDO2 215.6 mmHg; COHb 0.1 % (0.5-1.5); MetHb 0.7 % (0.0-1.5); O2Hb 95.8 % (94.0-97.0); PEEP,BG 5 cm H2O; SITE, ABG Right Brachial; VENT MODE, BG AC 18 500 50% +5; VT, ABG 500 mL
[2018-01-28] MEDS: BLOOD SUGAR DIAGNOSTIC 1 EACH STRIP IN SCH (18:39)
[2018-01-28] MEDS: IV NS 0.9% 1,000 ML IV PRN (18:56)
[2018-01-28] MEDS: PIPERACILLIN /TAZOBACTAM 3.375 G in IV D5W 50 ML IV SCH (18:57)
--- NOTE | 2018-01-28 19:50 | NUR ---
AUTOMATIC SPINNING LATHE SETTER. INITIAL ASSESSMENT. RECEIVED THE PT REST ON THE BED. ORALLY INTUBATED. SEDATED WITH DIPRIVAN. ETT 7.5CM,LIP 21CM,AC 18,TV 500,FIO2 50%, PEEP 5. SAT 98%. HAND CEMENTER SHOWING NSR. IV RT UPPER ARM PICC LINE FC PATENT. WILMER SOFT WRIST RESTRAINT CHECKED AND RELEASED. NO INJURY OR REDNESS NOTED. OGT INTACT. NPO. HOB ELEVATED. WILL CONTINUE TO MONITOR VITALS,
[2018-01-29] VITALS (50 sets, daily range): BP systolic 75–128; BP diastolic 38–65
[2018-01-29] MEDS: PIPERACILLIN /TAZOBACTAM 3.375 G in IV D5W 50 ML IV SCH ×5 (00:52→23:33)
[2018-01-29] MEDS: BLOOD SUGAR DIAGNOSTIC 1 EACH STRIP IN SCH ×5 (00:52→23:55)
[2018-01-29] MEDS: PROPOFOL 100 ML IV PRN ×3 (00:54→15:57)
--- NOTE | 2018-01-29 03:33 | NUR ---
CATERING SERVER. AM CARE. ORAL CARE, BED BATH GIVEN. LINEN CHANGED. REMAINING SAME VENT SETTING TOLERATED WELL. SAT 98%. NO ACUTE DISTRESS NOTED. BUS COMPANY MANAGER SHOWING NSR. IV RT UPPER ARM PICC LINE. IVF NS 75ML/H,DIPRIVAN 40MCG/KG/MIN. OGT INTACT. HOB ELEVATED. FC PATENT. WILMER SOFT WRIST RESTRAINT CHECKED AND RELEASED. NO INJURY OR REDNESS NOTED. HOB ELEVATED. TURN AND REPOSITION Q2H. WILL CONTINUE TO MONITOR VITALS.
[2018-01-29 05:36] LABS: CHOLESTEROL 109 mg/dL (<200); HDL CHOLESTEROL 53 mg/dL (40-60); LDL 45 mg/dL (0-99); THYROID STIMULATING HORMONE 0.997 uIU/mL (0.358-3.74); TRIGLYCERIDES 92 mg/dL (30-150)
[2018-01-29 05:38] LABS: ALANINE AMINOTRANSFERASE 20 U/L (12-78); ALBUMIN 1.7 g/dL (3.4-5.0); ALKALINE PHOSPHATASE 55 U/L (46-116); ASPARTATE AMINOTRANSFERASE 23 U/L (15-37); BILIRUBIN,TOTAL 0.4 mg/dL (0.2-1.0); CALCIUM, SERUM 7.4 mg/dL (8.5-10.1); CARBON DIOXIDE 26 mmol/L (21-32); CHLORIDE 105 mmol/L (98-107); CREATININE 0.7 mg/dL (0.6-1.3); GLUCOSE 117 mg/dL (74-106); MAGNESIUM 2.2 mg/dL (1.8-2.4); PHOSPHORUS 2.4 mg/dL (2.5-4.9); POTASSIUM 3.6 mmol/L (3.5-5.1); SODIUM SERUM 139 mmol/L (136-145); TOTAL PROTEIN, SERUM 5.4 g/dL (6.4-8.2); UREA NITROGEN, BLOOD 18 mg/dL (7-18)
[2018-01-29 05:47] LABS: BASOPHILS % (AUTO) 0.1 % (0.0-2.0); EOSINOPHILS % (AUTO) 0.5 % (0.0-6.0); HEMATOCRIT 22 % (33-45); HEMOGLOBIN 7.1 g/dL (11.5-14.8); LYMPHOCYTES # (AUTO) 1.4 /CMM (0.8-4.8); MEAN CORPUSCULAR HGB CONC 33 g/dl (31.0-36.0); MEAN CORPUSCULAR VOLUME 78 fL (82-100); MONOCYTES # (AUTO) 1.4 /CMM (0.1-1.30); MONOCYTES % (AUTO) 8.9 % (2.0-12.0); NEUTROPHILS # (AUTO) 12.8 /CMM (1.8-8.9); NEUTROPHILS % (AUTO) 81.5 % (43.0-81.0); PLATELET COUNT (AUTO) 266 /CMM (150-450); RDW COEFFICIENT OF VARIATION 17.6 (11.5-15.0); RED BLOOD CELL COUNT(AUTO) 2.79 MIL/uL (4.0-5.2); WHITE BLOOD COUNT (AUTO) 15.7 K/uL (4.3-11.0)
[2018-01-29] MEDS: VANCOMYCIN 0.75 GM in IV NS 0.9% 250 ML IV SCH ×2 (06:23→18:25)
--- NOTE | 2018-01-29 07:45 | NUR ---
ICU/RN - Initial Notes Received pt sedated, orally intubated to mechanical vent with settings as ordered. On tele reading SR 80s. No s/s of pain or discomfort. PICC line to YASSINE with IVF infusing well. OGT kept clamped, patent and intact, kept NPO as ordered. Tang catheter intact draining urine to gravity. Safety and comfort measures in place. Will continue to monitor pt closely.
[2018-01-29] MEDS ORDERED: Z GUARD REMEDY 2 OZ OINT TP PRN (08:00)
--- NOTE | 2018-01-29 08:25 | NUR ---
PT REC'D ORALLY INTUBATED VIA A 7.5 ETT SECURED USING AN ANCHOR FAST AT 21CM AT THE LIP. VENT SETTINGS CHARTED. FIO2 TITRATED TO 40% FOR NOW. SPO2 100%. VENT ALARMS CHECKED AND AUDIBLE PER POLICY. SX'D MOD AMT OF THICK, WHITE/SHRESTHA SECRETIONS. VENT PLUGGED INTO RED OUTLET. AMBU BAG AT HOB. Addendum: 01/29/18 at 0829 by MARIANNA NGUYEN RT Amended: Links added.
--- NOTE | 2018-01-29 10:15 | NUR ---
ICU/RN - Notes Diprivan titrated down for sedation vacation. While off propofol, pt opens eyes and shakes head left and right, does not follow commands. Pt manifests with agitation, shaking head left and right, facial grimacing. Pt placed back on sedation while orally intubated, as there are no plans of mechanical ventilator weaning at this time.
[2018-01-29] MEDS: LEVETIRACETAM (500MG) 500 MG in IV NS 0.9% 100 ML IV SCH ×2 (10:36→20:57)
[2018-01-29 11:58] LABS: ABG OXYGEN SATURATION 94.7 % (92.0-98.5); ABG PCO2 31.1 mmHg (35.0-45.0); ABG PH 7.519 (7.350-7.450); ABG PO2 72.9 mmHg (75.0-100.0); AaDO2 176.5 mmHg; COHb 0.3 % (0.5-1.5); MetHb 0.7 % (0.0-1.5); O2Hb 93.8 % (94.0-97.0); PEEP,BG 5 cm H2O; SITE, ABG Right Radial; VT, ABG 500 mL
[2018-01-29 12:28] LABS: APPEARANCE,URINE CLOUDY (CLEAR); BILIRUBIN,URINE NEGATIVE (NEGATIVE); BLOOD, URINE NEGATIVE Ery/uL (NEGATIVE); COLOR,URINE YELLOW (YELLOW); KETONES,URINE NEGATIVE (NEGATIVE); LEUKOCYTE ESTERASE ,URINE NEGATIVE (NEGATIVE); NITRITE, URINE NEGATIVE (NEGATIVE); PROTEIN,URINE TRACE mg/dl (NEGATIVE); UGLUCOSE NEGATIVE (NEGATIVE); UROBILINOGEN,URINE 0.2 EU/dL (0.2)
[2018-01-29 13:33] LABS: RBC,URINE 0-2 /HPF (0-2)
[2018-01-29 13:34] LABS: SQUAMOUS EPITHELIAL CELL,UR Rare /HPF (None Seen); URIC ACID CRYSTALS,URINE Moderate /HPF (None Seen); WBC,URINE 0-2 /HPF (0-3)
[2018-01-29 13:36] LABS: BACTERIA,URINE Moderate /HPF (None Seen)
[2018-01-29] MEDS ORDERED: Sodium Phosphate 15 MMOL in IV D5W 250 ML IV ONE (14:00)
[2018-01-29] MEDS: IV NS 0.9% 1,000 ML IV PRN (14:42)
[2018-01-29] MEDS: ALBUTEROL HALF STRENGTH 1.25 MG/3 ML VIAL.NEB NEB SCH ×2 (16:13→19:50)
[2018-01-29] MEDS: IPRATROPIUM NEB FS 0.5 MG/2.5 ML AMPUL.NEB NEB SCH ×2 (16:13→19:50)
[2018-01-29] MEDS: GLYTROL 1,000 ML BAG GT PRN (17:29)
[2018-01-29] MEDS: INSULIN REGULAR, HUMAN 100 UNIT/ML 3 ML VIAL SQ PRN ×2 (17:53→23:53)
--- NOTE | 2018-01-29 18:35 | NUR ---
ICU/RN - Notes No significant change in pt's condition. Appears comfortable on mechanical ventilator without distress.
--- NOTE | 2018-01-29 21:18 | NUR ---
CHIEF LIBRARIAN BRANCH OR DEPARTMENT DF @1930 RECEIVED PT TO ROOM#259 PT SEDATED ON PROPOFOL AT 20 MCG.PT IN SOFT BILATERAL WRIST RESTRAINTS FOR SAFETY PT SELF EXTUBATION RISK.PT INTUBATED TOLERATING CURRENT AC VENT SETTINGS.VITALS STABLE. NO ACUTE DISTRESS NOTED. PHYSICAL ASSESSMENT COMPLETED SEE FLOWSHEET FOR INFO.STARTED ON TUBE FEEDING TODAY TOLERATING WELL, NO RESIDUALS NOTED.
--- NOTE | 2018-01-29 21:49 | NUR ---
PT RECEIVED INTUBATED ON VENT. 7.5 ETT SECURED AT 21CM AT THE LIP. TOLERATING VENT SETTINGS. VENT ALARMS SET AND AUDIBLE. AMBU BAG AT BEDSIDE. VENT PLUGGED INTO RED OUTLET. WILL CONTINUE TO MONITOR. Addendum: 01/29/18 at 2153 by NAKITA VILA RT Amended: Links added.
[2018-01-30] VITALS (49 sets, daily range): BP systolic 82–135; BP diastolic 40–70
[2018-01-30] MEDS: PROPOFOL 100 ML IV PRN ×5 (00:10→23:30)
[2018-01-30] MEDS: ALBUTEROL HALF STRENGTH 1.25 MG/3 ML VIAL.NEB NEB SCH ×4 (01:09→19:49)
[2018-01-30] MEDS: IPRATROPIUM NEB FS 0.5 MG/2.5 ML AMPUL.NEB NEB SCH ×4 (01:09→19:49)
[2018-01-30 04:55] LABS: EOSINOPHILS % (AUTO) 1.2 % (0.0-6.0); LYMPHOCYTES # (AUTO) 1.1 /CMM (0.8-4.8); LYMPHOCYTES % (AUTO) 6.8 % (20.0-44.0); MEAN CORPUSCULAR HGB CONC 33 g/dl (31.0-36.0); MEAN CORPUSCULAR VOLUME 79 fL (82-100); MONOCYTES # (AUTO) 0.9 /CMM (0.1-1.30); MONOCYTES % (AUTO) 5.7 % (2.0-12.0); NEUTROPHILS # (AUTO) 13.8 /CMM (1.8-8.9); NEUTROPHILS % (AUTO) 86.3 % (43.0-81.0); PLATELET COUNT (AUTO) 241 /CMM (150-450); RDW COEFFICIENT OF VARIATION 17.8 (11.5-15.0); RED BLOOD CELL COUNT(AUTO) 2.48 MIL/uL (4.0-5.2); WHITE BLOOD COUNT (AUTO) 15.9 K/uL (4.3-11.0)
[2018-01-30 05:09] LABS: HEMATOCRIT 19 % (33-45); HEMOGLOBIN 6.3 g/dL (11.5-14.8)
[2018-01-30 05:16] LABS: CALCIUM, SERUM 7.8 mg/dL (8.5-10.1); CARBON DIOXIDE 26 mmol/L (21-32); CHLORIDE 105 mmol/L (98-107); CREATININE 0.7 mg/dL (0.6-1.3); GLUCOSE 114 mg/dL (74-106); PHOSPHORUS 3.7 mg/dL (2.5-4.9); SODIUM SERUM 138 mmol/L (136-145); UREA NITROGEN, BLOOD 11 mg/dL (7-18)
[2018-01-30 05:25] LABS: BAND % (MANUAL) 4 % (0.0-5.0); LYMPHOCYTES % (MANUAL) 9 % (16-48); MONOCYTES % (MANUAL) 4 % (0-11.0); NEUTROPHILS % (MANUAL) 83 (42-76)
[2018-01-30] MEDS: VANCOMYCIN 0.75 GM in IV NS 0.9% 250 ML IV SCH ×2 (05:33→18:00)
[2018-01-30] MEDS: PIPERACILLIN /TAZOBACTAM 3.375 G in IV D5W 50 ML IV SCH ×4 (05:33→23:40)
[2018-01-30] MEDS: BLOOD SUGAR DIAGNOSTIC 1 EACH STRIP IN SCH ×4 (05:56→23:40)
--- NOTE | 2018-01-30 05:57 | NUR ---
AGILE DEVELOPER DF PT CRITICAL VALUE OF HGB/HCT OF 6.3/ INFORMED DR RAMIREZ OF RESULTS. PT ACCU CHECK OF 128, TOLERATING TUBE FEEDING. VSS.NAD NOTED. NO ACTIVE BLEEDING NOTED. PT ADMIT WITH ANEMIA. Addendum: 01/30/18 at 0613 by MARILU LEWIS RN ORDER RECEIVED TO TRANSFUSE 2 UPRBC,ORDER PLACED.CALLED DAUGHTER BHAVYA FOR BLOOD TRANSFUSION CONSENT.LEFT MESSAGE TO CALL BACK.
--- NOTE | 2018-01-30 07:34 | NUR ---
RT PT RECEIVED ORALLY INTUBATED ON THE VENT WITH NOTED SETTINGS. PT RESPONDS TO STIMULI WHEN SUCTIONED. VENT ALARMS ARE SET AND AUDIBLE WITH BVM BY BEDSIDE. RELATIONSHIP BANKER CUFF PRESSURE NOTED. VENT IS PLUGGED INTO RED OUTLET. NO RESPIRATORY DISTRESS NOTED AT THIS TIME, WILL CONTINUE TO MONITOR. Addendum: 01/30/18 at 1811 by MARKUS FONG RT Amended: Links added.
--- NOTE | 2018-01-30 07:45 | NUR ---
ICU/RN - Initial Notes Received pt sedated, orally intubated to mechanical vent with settings as ordered. On tele reading SR 80s. No s/s of pain or discomfort. PICC line to YASSINE with IVF infusing well. Tolerating tube feeding well with no residuals. Tang catheter intact draining urine to gravity. Safety and comfort measures in place. Will continue to monitor pt closely.
[2018-01-30 08:59] LABS: ABG OXYGEN SATURATION 95.5 % (92.0-98.5); ABG PCO2 37.6 mmHg (35.0-45.0); ABG PH 7.443 (7.350-7.450); ABG PO2 87.8 mmHg (75.0-100.0); AaDO2 154.2 mmHg; COHb 0.3 % (0.5-1.5); MetHb 1.8 % (0.0-1.5); O2Hb 93.5 % (94.0-97.0); PEEP,BG 5 cm H2O; SITE, ABG Right Radial; VT, ABG 450 mL
[2018-01-30] MEDS: LEVETIRACETAM (500MG) 500 MG in IV NS 0.9% 100 ML IV SCH ×2 (09:31→21:53)
[2018-01-30] MEDS: POTASSIUM CHLORIDE 20 MEQ POWDER PACKET GT SCH ×3 (09:37→12:10)
--- NOTE | 2018-01-30 10:00 | NUR ---
ICU/RN - Notes PRBC transfusing well at this time via fluid warmer. No s/s of adverse reactions noted. Vital signs stable.
--- NOTE | 2018-01-30 13:20 | NUR ---
ICU/RN - Notes Blood transfusion completed. No s/s of adverse reactions noted.
--- NOTE | 2018-01-30 14:00 | NUR ---
ICU/RN - Notes Second unit of PRBC transfusing well at this time via fluid warmer. No s/s of adverse reactions noted. Vital signs stable.
[2018-01-30] MEDS: IV NS 0.9% 1,000 ML IV PRN (16:19)
[2018-01-30] MEDS: GLYTROL 1,000 ML BAG GT PRN (16:19)
[2018-01-30] MEDS: LACTOBACILLUS RHAMNOSUS GG 1 EACH CAP.SPRINK GT SCH (16:19)
--- NOTE | 2018-01-30 17:20 | NUR ---
ICU/RN - Notes Blood transfusion completed. No s/s of adverse reactions noted.
--- NOTE | 2018-01-30 19:58 | NUR ---
AIRPLANE PATROLLER DF PT FAMILY AT BEDSIDE UPDATED REGARDING PT,S POC. VSS.NAD NOTED.
--- NOTE | 2018-01-30 20:15 | NUR ---
FIREPROOF DOOR ASSEMBLER DF PT RECEIVED ON 100% FIO2 WITH O2 SAT OF 99%. RT REQUESTING ABG,ORDERS RECEIVED,AWAITING RESULTS. Addendum: 01/30/18 at 2023 by MARILU LEWIS RN O2 SAT OF 90-94% PT REPOSITIONED O2 SAT OF 92-94%.
[2018-01-30 20:24] LABS: ABG BASE EXCESS -1.5 mmol/L; ABG OXYGEN SATURATION 98.9 % (92.0-98.5); ABG PCO2 36.1 mmHg (35.0-45.0); ABG PH 7.416 (7.350-7.450); ABG PO2 328.1 mmHg (75.0-100.0); AaDO2 348.8 mmHg; COHb 0.3 % (0.5-1.5); MetHb 0.6 % (0.0-1.5); PEEP,BG 5 cm H2O; SITE, ABG Right Radial
--- NOTE | 2018-01-30 20:26 | NUR ---
FLIGHT OPERATIONS DISPATCH CLERK DF 7.41 CO2 36/PO2 328 HCO3 22 O2 SAT ON ABG 98.9%.PT HAS NAIL POLISHES ON FINGER NAILS.FIO2 REDUCED TO 40%.
--- NOTE | 2018-01-30 23:45 | NUR ---
COLLEGE OR UNIVERSITY REGISTRAR DF PT ACCU CHECK OF 128 NO COVERAGE PER EMAR. PT TOLERATING TUBE FEEDING @30ML/HRVSS. SEDATED ON DIPRIVAN AT 45MCG/MIN.
[2018-01-31] VITALS (41 sets, daily range): BP systolic 108–158; BP diastolic 52–90
[2018-01-31] MEDS: ALBUTEROL HALF STRENGTH 1.25 MG/3 ML VIAL.NEB NEB SCH ×4 (01:09→20:17)
[2018-01-31] MEDS: IPRATROPIUM NEB FS 0.5 MG/2.5 ML AMPUL.NEB NEB SCH ×4 (01:09→20:17)
[2018-01-31] MEDS: BLOOD SUGAR DIAGNOSTIC 1 EACH STRIP IN SCH ×4 (04:22→23:51)
[2018-01-31] MEDS: PROPOFOL 100 ML IV PRN ×2 (04:22→09:30)
[2018-01-31 05:35] LABS: CALCIUM, SERUM 7.8 mg/dL (8.5-10.1); CARBON DIOXIDE 24 mmol/L (21-32); CHLORIDE 107 mmol/L (98-107); CREATININE 0.6 mg/dL (0.6-1.3); GLUCOSE 115 mg/dL (74-106); POTASSIUM 3.5 mmol/L (3.5-5.1); SODIUM SERUM 136 mmol/L (136-145); UREA NITROGEN, BLOOD 8 mg/dL (7-18)
[2018-01-31] MEDS: PIPERACILLIN /TAZOBACTAM 3.375 G in IV D5W 50 ML IV SCH ×4 (06:03→23:51)
[2018-01-31] MEDS: VANCOMYCIN 0.75 GM in IV NS 0.9% 250 ML IV SCH ×2 (06:03→18:17)
[2018-01-31] MEDS: INSULIN REGULAR, HUMAN 100 UNIT/ML 3 ML VIAL SQ PRN ×2 (06:05→18:27)
--- NOTE | 2018-01-31 07:30 | NUR ---
RN NOTES RECEIVED PT ON BED. ORALLY INTUBATED. SEDATED WITH DIPRIVAN AT 45MCG/KG/MIN. ETT 7.5CM,LIP 21CM. VENT SETTINGS FOLLOWS:AC 18,TV 450,FIO2 40%, PEEP 5. SATING WELL. SUCTIONED FOR AIRWAY CLEARANCE, ORAL CARE PROVIDED, SR ON LEATHER DRESSER. IV ON RT UPPER ARM PICC LINE,PATENT. WILMER SOFT WRIST RESTRAINT IN PLACE, RELEASED AND CHECKED FOR CIRCULATION. NOTED WITH DISCOLORATION ON BOTH HANDS. KEPT ELEVATED. PT REPOSITIONED FOR COMFORT. WILL CONT TO MONITOR
[2018-01-31 08:35] LABS: MAGNESIUM 1.8 mg/dL (1.8-2.4)
[2018-01-31 09:10] LABS: EOSINOPHILS % (AUTO) 2.4 % (0.0-6.0); HEMATOCRIT 25 % (33-45); HEMOGLOBIN 8.6 g/dL (11.5-14.8); LYMPHOCYTES # (AUTO) 0.9 /CMM (0.8-4.8); LYMPHOCYTES % (AUTO) 6.6 % (20.0-44.0); MEAN CORPUSCULAR HGB CONC 35 g/dl (31.0-36.0); MEAN CORPUSCULAR VOLUME 85 fL (82-100); MONOCYTES # (AUTO) 0.6 /CMM (0.1-1.30); NEUTROPHILS # (AUTO) 12.4 /CMM (1.8-8.9); PLATELET COUNT (AUTO) 221 /CMM (150-450); RDW COEFFICIENT OF VARIATION 17.5 (11.5-15.0); RED BLOOD CELL COUNT(AUTO) 2.96 MIL/uL (4.0-5.2); WHITE BLOOD COUNT (AUTO) 14.3 K/uL (4.3-11.0)
[2018-01-31] MEDS: LACTOBACILLUS RHAMNOSUS GG 1 EACH CAP.SPRINK GT SCH ×2 (09:31→17:30)
[2018-01-31] MEDS: LEVETIRACETAM (500MG) 500 MG in IV NS 0.9% 100 ML IV SCH (09:31)
--- NOTE | 2018-01-31 09:50 | NUR ---
RN NOTES PT ON SEDATION VACATION. OPENS EYES, FOLLOW COMMANDS. TAJIK ENGINEERING INTERN AT BEDSIDE. VS STABLE AT THIS TIME. NO RESP DISTRESS NOTED AT THIS TIME. BP 135/71 HR 71 RR 18 O2 SAT 100%. REPOSITIONED PT, ORAL CARE PROVIDED. AT BEDSIDE.
--- NOTE | 2018-01-31 14:54 | NUR ---
RN NOTES RECEIVED A CALL FROM [facility], PT IS POSITIVE FOR MRSA SPUTUM. DR WINTER NOTIFIED, AWAITING FOR ORDERS.
--- NOTE | 2018-01-31 19:30 | NUR ---
MECHATRONICS ENGINEER INITIAL NOTES RECEIVED REPORT FROM NURSE KARIMI. PATIENT IN BED, AWAKE, EYES OPEN AT THIS TIME. PATIENT RESTLESS, REPOSITIONED FOR COMFORT. PATIENT ORALLY INTUBATED, 7.5, 21 CM @ LIP, ON PRESCRIBED VENTILATOR SETTINGS, TOLERATING WELL, FREE FROM ANY S/S OF RESPIRATORY DISTRESS AT THIS TIME, SUCTIONED ORALLY AND ETT FOR AIRWAY CLEARANCE. ON TELEMETRY MONITORING, REVEALING SINUS SR, HR = 84 AT THIS TIME. NOTED WITH WILMER HAND PITTING EDEMA +2, AND BLE EDEMA, NONPITTING. NOTED WITH YASSINE PICC, PATENT AND INTACT, FLUSHED WITH NS, PRESCRIBED IVF ONGOING. ALSO NOTED WITH RIGHT HAND #22G, PATENT AND INTACT. BOTH IV SITES FLUSHED WITH NS, FREE FROM ANY S/S OF INFILTRATION OR PHLEBITIS. NOTED WITH OGT, PATENT AND INTACT, FLUSHED WITH AIR AND AUSCULTATED, POSITIVE PLACEMENT. SPRINGER CATHETER PATENT AND INTACT, DRAINING CLEAR YELLOW URINE BY GRAVITY. CONTACT ISOLATION FOR MRSA SPUTUM OBSERVED. ASPIRATION PRECAUTIONS OBSERVED, HOB KEPT ELEVATED AT 30 DEGREES. PLAN OF CARE DISCUSSED WITH THE PATIENT'S SON, WHO IS AT BEDSIDE, AND VERBALIZES UNDERSTANDING. CALL LIGHT LEFT WITHIN EASY REACH, BED IN LOWEST AND LOCKED POSITION. WILL CONTINUE TO CLOSELY MONITOR.
[2018-01-31] MEDS: LEVETIRACETAM SOL (5 ML) 100 MG/ML UDC GT SCH (20:45)
[2018-01-31] MEDS: GLYTROL 1,000 ML BAG GT PRN (20:45)
[2018-01-31] MEDS: IV NS 0.9% 1,000 ML IV PRN (22:34)
[2018-02-01] VITALS (43 sets, daily range): BP systolic 121–154; BP diastolic 47–92
[2018-02-01] MEDS: IPRATROPIUM NEB FS 0.5 MG/2.5 ML AMPUL.NEB NEB SCH ×4 (02:22→20:23)
[2018-02-01] MEDS: ALBUTEROL HALF STRENGTH 1.25 MG/3 ML VIAL.NEB NEB SCH ×4 (02:22→20:23)
[2018-02-01 04:40] LABS: EOSINOPHILS % (AUTO) 3.1 % (0.0-6.0); HEMATOCRIT 25 % (33-45); HEMOGLOBIN 8.8 g/dL (11.5-14.8); LYMPHOCYTES # (AUTO) 1.2 /CMM (0.8-4.8); LYMPHOCYTES % (AUTO) 9.4 % (20.0-44.0); MEAN CORPUSCULAR HGB CONC 35 g/dl (31.0-36.0); MEAN CORPUSCULAR VOLUME 84 fL (82-100); MONOCYTES # (AUTO) 0.6 /CMM (0.1-1.30); MONOCYTES % (AUTO) 4.7 % (2.0-12.0); NEUTROPHILS # (AUTO) 10.3 /CMM (1.8-8.9); NEUTROPHILS % (AUTO) 82.8 % (43.0-81.0); PLATELET COUNT (AUTO) 239 /CMM (150-450); RDW COEFFICIENT OF VARIATION 17.9 (11.5-15.0); RED BLOOD CELL COUNT(AUTO) 3.03 MIL/uL (4.0-5.2); WHITE BLOOD COUNT (AUTO) 12.5 K/uL (4.3-11.0)
--- NOTE | 2018-02-01 04:57 | NUR ---
PT RECEIVED ORALLY INTUBATED 7.5 ETT SECURED AT 21CM AT THE LIP. NO RESP DISTRESS NOTED. PT TOERATING VENT SETTINGS. VENT ALARMS SET AND AUDIBLE. AMBU BAG AT BEDSIDE. VENT PLUGGED INTO RED OUTLET. WILL CONTINUE TO MONITOR. Addendum: 02/01/18 at 0531 by AUDRA GONZALES RT Amended: Links added.
[2018-02-01] MEDS: BLOOD SUGAR DIAGNOSTIC 1 EACH STRIP IN SCH ×4 (05:10→23:46)
[2018-02-01] MEDS: PIPERACILLIN /TAZOBACTAM 3.375 G in IV D5W 50 ML IV SCH ×2 (05:10→11:45)
[2018-02-01] MEDS: VANCOMYCIN 0.75 GM in IV NS 0.9% 250 ML IV SCH ×2 (05:11→17:22)
[2018-02-01 05:17] LABS: CALCIUM, SERUM 7.9 mg/dL (8.5-10.1); CARBON DIOXIDE 25 mmol/L (21-32); CHLORIDE 104 mmol/L (98-107); CREATININE 0.6 mg/dL (0.6-1.3); GLUCOSE 114 mg/dL (74-106); PHOSPHORUS 2.8 mg/dL (2.5-4.9); POTASSIUM 3.6 mmol/L (3.5-5.1); SODIUM SERUM 138 mmol/L (136-145); UREA NITROGEN, BLOOD 7 mg/dL (7-18)
[2018-02-01 05:41] LABS: MAGNESIUM 1.6 mg/dL (1.8-2.4)
--- NOTE | 2018-02-01 06:08 | NUR ---
PREMIUM NOTE INTEREST CALCULATOR CLERK NOTES AM LABS, MAGNESIUM LEVEL 1.6. JESSICA RAMIREZ MADE AWARE, WITH NEW ORDER FOR REPLACEMENT OF MAG SULFATE 4G VIA IV. ORDER READ BACK FOR CLARIFICATION. NOTED AND WILL CARRY OUT
[2018-02-01] MEDS ORDERED: Magnesium 1GM/D5W 100ML PREMIX PIGGYBACK IV ONE (06:30)
[2018-02-01] MEDS: Magnesium 1GM/D5W 100ML PREMIX 100 ML IV SCH ×4 (07:46→10:51)
--- NOTE | 2018-02-01 07:50 | NUR ---
STOCK MANAGER: pt.is without sedation since yesterday on AC vent mode, reactive well, eyes contact+, rest, no grimacing, can follow simple commands, but very weak, unable to demonstrate cough up, spoke with RT/plan: SIMV mode today, ETT suction: moderate amount now, but lat of secretion over night by report, SR, SBP over 100, O2sat, OGTF residual WNL, stool for OB order is active, no any acute bleeding per report, H/H 8.8/25, Mg 1.6/4mg IV 4 bags ordered per report, pt.is on wrists restraints for self-extubation prevention
--- NOTE | 2018-02-01 08:00 | NUR ---
MATERIAL CONTROL SPECIALIST: weak air bubbling sound with OGT position check, OGTF residual 5 ml, suctioned orally with minimum saliva amount, will check CXR for GT position, keep HOB over 40
--- NOTE | 2018-02-01 08:05 | NUR ---
ENGINEERING VICE PRESIDENT: OGTF position is 40 cm inside
--- NOTE | 2018-02-01 08:12 | NUR ---
Intubated received on AC mode. Pt placed on SIMV mode per MD order. 7.5 ETT secured at 21cm @ the lip. Vent is plugged into red outlet, alarms are set and audible, and BVM is at bedside. Addendum: 02/01/18 at 0814 by FRANCO JOHNSON RT Amended: Links added.
[2018-02-01] MEDS: LEVETIRACETAM SOL (5 ML) 100 MG/ML UDC GT SCH ×2 (08:58→21:40)
[2018-02-01] MEDS: LACTOBACILLUS RHAMNOSUS GG 1 EACH CAP.SPRINK GT SCH ×2 (08:58→16:52)
--- NOTE | 2018-02-01 09:15 | NUR ---
MANUFACTURING ADVISOR: called to radiology department re CXR stat order is active
--- NOTE | 2018-02-01 09:15 | NUR ---
WELDING OPERATOR: pt.is on SIMV, O2 sat. over 95%, is in room, updated with pt.current condition, VS, ABG, suctions amount, said: continue monitoring
[2018-02-01 09:17] LABS: ABG BASE EXCESS 0.5 mmol/L; ABG OXYGEN SATURATION 96.5 % (92.0-98.5); ABG PCO2 48.2 mmHg (35.0-45.0); ABG PH 7.356 (7.350-7.450); ABG PO2 97.7 mmHg (75.0-100.0); AaDO2 132.1 mmHg; COHb 0.3 % (0.5-1.5); MetHb 0.7 % (0.0-1.5); O2Hb 95.5 % (94.0-97.0); SITE, ABG Left Radial; VENT MODE, BG SIMV 4 450 PS12 40% +5
--- NOTE | 2018-02-01 10:40 | NUR ---
INFRASTRUCTURE DEVELOPER: pt.is rest, weak, eyes contact+, was suctioned x3 since 0800, pt. is in room/notified re pt.current condition, VS, I/O, orders, SIMV mode, O2 sat., suction amount, visit, POC
--- NOTE | 2018-02-01 11:10 | NUR ---
[facility] SHIFT LEAD: got CXR result: OGT tip position at GE junction, advanced into for 10cm f/u CXR eval recommendation, now OGT 50cm at lips level, good air bubbling sounds into stomach
--- NOTE | 2018-02-01 11:20 | NUR ---
BEHAVIORAL PEDIATRICIAN: is in room, updated with pt.VS, I/O, IVF, orders, ABG, SIMV, neuro status, Mg replacement order, spoke with pt.family
[2018-02-01] MEDS: INSULIN REGULAR, HUMAN 100 UNIT/ML 3 ML VIAL SQ PRN (12:06)
--- NOTE | 2018-02-01 15:30 | NUR ---
GOLF CADDIE: is in room, updated with pt.condition, VS, orders, POC, meds
[2018-02-01] MEDS: CEFTRIAXONE 1 G in IV NS 0.9% 50 ML IV SCH (16:52)
[2018-02-01] MEDS: IV NS 0.9% 1,000 ML IV PRN (16:53)
--- NOTE | 2018-02-01 18:30 | NUR ---
CREDIT PRODUCT ANALYST: pt.is with open eyes, rest, weak, unable to follow commands properly well, SR, SBP over 100, O2 sat. 98-100% on SIMV mode, RR WNL, PM/skin care done, no BM during shift
--- NOTE | 2018-02-01 19:44 | NUR ---
EMPLOYEE BENEFITS DIRECTOR INITIAL NOTE PT RECEIVED ORALLY INTUBATED 7.5 ETT SECURED AT 21CM AT THE LIP. NO RESP DISTRESS NOTED. PT TOERATING VENT SETTINGS. SIMV 450, FIO2 40%, PEEP 5, VENT ALARMS SET AND AUDIBLE. AMBU BAG AT BEDSIDE. VENT PLUGGED INTO RED OUTLET. WILL CONTINUE TO MONITOR.
[2018-02-02] VITALS (32 sets, daily range): BP systolic 84–149; BP diastolic 43–86
[2018-02-02] MEDS: IPRATROPIUM NEB FS 0.5 MG/2.5 ML AMPUL.NEB NEB SCH ×4 (01:43→20:21)
[2018-02-02] MEDS: ALBUTEROL HALF STRENGTH 1.25 MG/3 ML VIAL.NEB NEB SCH ×4 (01:44→20:21)
[2018-02-02] MEDS: GLYTROL 1,000 ML BAG GT PRN (05:07)
[2018-02-02] MEDS: BLOOD SUGAR DIAGNOSTIC 1 EACH STRIP IN SCH ×4 (05:12→23:45)
[2018-02-02 05:16] LABS: CALCIUM, SERUM 7.9 mg/dL (8.5-10.1); CARBON DIOXIDE 33 mmol/L (21-32); CHLORIDE 103 mmol/L (98-107); CREATININE 0.5 mg/dL (0.6-1.3); GLUCOSE 128 mg/dL (74-106); POTASSIUM 3.6 mmol/L (3.5-5.1); SODIUM SERUM 138 mmol/L (136-145); UREA NITROGEN, BLOOD 6 mg/dL (7-18)
[2018-02-02] MEDS: VANCOMYCIN 0.75 GM in IV NS 0.9% 250 ML IV SCH (05:19)
--- NOTE | 2018-02-02 05:47 | NUR ---
Pt placed on SIMV mode per MD order orally intubated 7.5 ETT secured at 21cm @ the lip. Vent is plugged into red outlet, alarms are set and audible, and BVM is at bedside.
--- NOTE | 2018-02-02 07:07 | NUR ---
PHOTOGRAPH MOUNTER CLOSING NOTE PT STABLE THROUGH SHIFT, NO EPISODE OF DISTRESS OR SIGN OF PAIN NOTED, PT MORE AWAKE AND APPEARS AT TIME TO KNOW WHAT IS GOING WHILE PROVING CARE, PT FOR WEANING IN AM, NURSE AWARE.
--- NOTE | 2018-02-02 07:41 | NUR ---
CHILDREN'S INSTITUTION ATTENDANT: pt. is drowsy, awake up with weak reaction, on SIMV mode, O2 sat. over 96%, SR, SBP over 100, big amount of ETT suction per report, no BM over night, plan: CPAP today, ABG, RT was notified yesterday
[2018-02-02] MEDS: LACTOBACILLUS RHAMNOSUS GG 1 EACH CAP.SPRINK GT SCH ×2 (08:11→16:44)
[2018-02-02] MEDS: LEVETIRACETAM SOL (5 ML) 100 MG/ML UDC GT SCH ×2 (08:12→21:04)
--- NOTE | 2018-02-02 08:15 | NUR ---
POMOLOGIST: pt. is with open eyes, eyes contact +, rest, no grimacing, still weak, unable to follow commands properly strong, on wrists restraints for self-extubation prevention, suctioned with large suction amount, keep HOB over 40, Chaz, RT is aware re: CPAP order, ABG, CXR: infiltrates are more extensive, I/O last 24hrs: +1200ml
[2018-02-02] MEDS: IV NS 0.9% 1,000 ML IV PRN (08:57)
[2018-02-02 10:11] LABS: BASOPHILS % (AUTO) 0.3 % (0.0-2.0); EOSINOPHILS % (AUTO) 1.8 % (0.0-6.0); HEMATOCRIT 27 % (33-45); HEMOGLOBIN 9.3 g/dL (11.5-14.8); LYMPHOCYTES # (AUTO) 0.8 /CMM (0.8-4.8); LYMPHOCYTES % (AUTO) 6.8 % (20.0-44.0); MEAN CORPUSCULAR HGB CONC 34 g/dl (31.0-36.0); MEAN CORPUSCULAR VOLUME 84 fL (82-100); MONOCYTES # (AUTO) 0.6 /CMM (0.1-1.30); MONOCYTES % (AUTO) 4.7 % (2.0-12.0); NEUTROPHILS # (AUTO) 10.4 /CMM (1.8-8.9); NEUTROPHILS % (AUTO) 86.4 % (43.0-81.0); PLATELET COUNT (AUTO) 266 /CMM (150-450); RDW COEFFICIENT OF VARIATION 18.5 (11.5-15.0); RED BLOOD CELL COUNT(AUTO) 3.22 MIL/uL (4.0-5.2); WHITE BLOOD COUNT (AUTO) 12.1 K/uL (4.3-11.0)
--- NOTE | 2018-02-02 10:47 | NUR ---
RUBBER CHEMIST: pt.is on CPAP since 10.00, got coughing, restless, suctioned via ETT/orally well with moderate amount of yellowish secretion, P peak high, Tv 300-400, RR up to 30 episodes, O2 sat. 98-99%, pt.c/o hard breathing by eyes contact communication, SR, called RT/placed pt. back on SIMV mode
[2018-02-02] MEDS: INSULIN REGULAR, HUMAN 100 UNIT/ML 3 ML VIAL SQ PRN ×2 (11:32→18:38)
--- NOTE | 2018-02-02 11:45 | NUR ---
MOTORCYLES FINAL INSPECTOR: is in room/updated with pt.current status, neuro status, VS, I/O, IVF, OGTF, labs, meds, ETT suction amount, CPAP failed, O2 sat., said: stop IVF, ok to apply DVT prevention stocking pump
--- NOTE | 2018-02-02 13:10 | NUR ---
MAKE READY WORKER: , pt.family are in room, notified re: neuro status/restraints, CPAP failed, SIMV mode now, O2 sat., VS, I/O, meds, H/H, IVF off, POC, ordered: Lasix 40mg IV x one, CPAP PS 10 peep5 on 02/03 09.00, ABG in 2 hrs, am CXR
[2018-02-02] MEDS ORDERED: FUROSEMIDE 40 MG/4 ML VIAL IV ONE (13:20)
--- NOTE | 2018-02-02 13:35 | NUR ---
RECREATION MANAGER: is in room/updated with all above, see new orders
[2018-02-02] MEDS: CEFTRIAXONE 1 G in IV NS 0.9% 50 ML IV SCH (16:44)
--- NOTE | 2018-02-02 17:10 | NUR ---
CUSTOMS OFFICER: pt.was suctioned orally/via ETT with large amount of yellowish sputum, pt.is awake, can track with eyes contact, communicate with eyes reaction, rest, but still with weak activity, unable to follow commands well, no pain, SR, SBP over 100, O2 sat. over 96%, PM/skin care done, skin is intact, no BM, abdomen is soft/no pain, OGTF residual 5 ml, pt. is in room, updated with POC, saw all above, pt.son updated with all above by phone call
[2018-02-02] MEDS: VANCOMYCIN 500 MG in IV D5W 100 ML IV SCH (17:56)
--- NOTE | 2018-02-02 18:27 | NUR ---
OIL SCOUT: DVT stocking pump is broken, called to [employer]
--- NOTE | 2018-02-02 19:30 | NUR ---
RECEIVED PATIENT AWAKE ALERT ORIENTED TO NAME FOLLOWS SIMPLE COMMAND.ST 103 NORMOTENSIVE.PATIENT ORALLY INTUBATED TO MECHANICAL VENT ON SIMV MODE.TOLERATING WELL SPO2 97%.NO DISTRESS NOTED.WITH OGT FEEDING IN PROGRESS AND OGT PLACEMENT VERIFIED NO RESIDUAL NOTED.MODERATE URINE OUTPUT PER FC.NS AT TKO INFUSING VIA YASSINE PICC LINE SITE INTACT.TURNED AND REPOSITIONED FOR COMFORT.
[2018-02-03] VITALS (33 sets, daily range): BP systolic 112–160; BP diastolic 49–87
[2018-02-03] MEDS: IPRATROPIUM NEB FS 0.5 MG/2.5 ML AMPUL.NEB NEB SCH ×4 (02:28→20:04)
[2018-02-03] MEDS: ALBUTEROL HALF STRENGTH 1.25 MG/3 ML VIAL.NEB NEB SCH ×4 (02:28→20:04)
[2018-02-03 05:12] LABS: CALCIUM, SERUM 8.6 mg/dL (8.5-10.1); CARBON DIOXIDE 38 mmol/L (21-32); CHLORIDE 97 mmol/L (98-107); CREATININE 0.5 mg/dL (0.6-1.3); GLUCOSE 122 mg/dL (74-106); POTASSIUM 3.2 mmol/L (3.5-5.1); SODIUM SERUM 137 mmol/L (136-145); UREA NITROGEN, BLOOD 8 mg/dL (7-18)
[2018-02-03] MEDS: VANCOMYCIN 500 MG in IV D5W 100 ML IV SCH ×2 (05:30→17:33)
[2018-02-03] MEDS: BLOOD SUGAR DIAGNOSTIC 1 EACH STRIP IN SCH ×4 (05:30→23:16)
--- NOTE | 2018-02-03 06:00 | NUR ---
CURBSTONE SETTER NOTES PATIENT RESTING.VS REMAINS STABLE.TOLERATING VENT SUPPORT SETTINGS.AM CARE DONE. ORAL CARE DONE.FSBL DONE Q 6 HRS.RESULTS WNL.NO COVERAGE GIVEN.NO SIGNIFICANT CHANGE NOTED.
[2018-02-03] MEDS: LEVETIRACETAM SOL (5 ML) 100 MG/ML UDC GT SCH ×2 (08:58→21:00)
[2018-02-03] MEDS: LACTOBACILLUS RHAMNOSUS GG 1 EACH CAP.SPRINK GT SCH ×2 (08:58→16:33)
[2018-02-03] MEDS: POTASSIUM CHLORIDE 20 MEQ POWDER PACKET NG SCH ×2 (10:40→11:39)
--- NOTE | 2018-02-03 10:45 | NUR ---
Pt's vent settings chanced to CPap. Pt updated on her progress, she is able to indicate that she can hear and able to follow commands. Education on Cpap weaning trial provided.
[2018-02-03 12:19] LABS: ABG BASE EXCESS 8.8 mmol/L; ABG OXYGEN SATURATION 95.2 % (92.0-98.5); ABG PCO2 48.7 mmHg (35.0-45.0); ABG PH 7.459 (7.350-7.450); ABG PO2 79.1 mmHg (75.0-100.0); AaDO2 150.1 mmHg; COHb 0.1 % (0.5-1.5); MetHb 0.5 % (0.0-1.5); O2Hb 94.6 % (94.0-97.0); PEEP,BG 5 cm H2O; SITE, ABG Right Radial
--- NOTE | 2018-02-03 13:00 | NUR ---
Pt assisted with full bed/ bath. One large bm noted. assisted with skin care. Now at bedside, education and emotional support provided.
--- NOTE | 2018-02-03 13:30 | NUR ---
PT EXTUBATED PER DR. ADAMSON ORDERS. PT HAS A PRODUCTIVE COUGH, ABLE TO BRING UP SECRETIONS. PLACED ON 6LPM NASAL CANNULA. NO COMPLICATIONS NOTED. NO SOB NOTED. PT GIVEN BREATHING TX POST EXTUBATION. RN ZABRINA FERRO.
[2018-02-03] MEDS: INSULIN REGULAR, HUMAN 100 UNIT/ML 3 ML VIAL SQ PRN (13:53)
--- NOTE | 2018-02-03 16:00 | NUR ---
Pt extubated since 1400. remains stable on 2lnc, vss, denied sob, denies chest pain. Addendum: 02/03/18 at 1656 by ZABRINA HARTMAN RN (correction) Pt extubated since 13:30, not 1400 o'clock.
[2018-02-03] MEDS: CEFTRIAXONE 1 G in IV NS 0.9% 50 ML IV SCH (16:38)
--- NOTE | 2018-02-03 21:09 | NUR ---
RN NOTE PATIENT IS NPO, WILL HAVE SWALLOW EVALUATION TOMORROW, NO PO MEDS PER MD ORDER, CHARGE NURSE SHANIQUE IS AWARE
[2018-02-04] VITALS (17 sets, daily range): BP systolic 114–139; BP diastolic 47–101
[2018-02-04] MEDS: ALBUTEROL HALF STRENGTH 1.25 MG/3 ML VIAL.NEB NEB SCH ×4 (01:21→20:05)
[2018-02-04] MEDS: IPRATROPIUM NEB FS 0.5 MG/2.5 ML AMPUL.NEB NEB SCH ×4 (01:21→20:05)
[2018-02-04] MEDS: VANCOMYCIN 500 MG in IV D5W 100 ML IV SCH ×2 (05:15→17:21)
[2018-02-04] MEDS: BLOOD SUGAR DIAGNOSTIC 1 EACH STRIP IN SCH ×3 (05:24→17:21)
[2018-02-04 05:36] LABS: BASOPHILS % (AUTO) 0.3 % (0.0-2.0); EOSINOPHILS % (AUTO) 1.2 % (0.0-6.0); HEMATOCRIT 29 % (33-45); HEMOGLOBIN 9.7 g/dL (11.5-14.8); LYMPHOCYTES # (AUTO) 1.1 /CMM (0.8-4.8); LYMPHOCYTES % (AUTO) 9.3 % (20.0-44.0); MEAN CORPUSCULAR HGB CONC 34 g/dl (31.0-36.0); MEAN CORPUSCULAR VOLUME 83 fL (82-100); MONOCYTES # (AUTO) 0.6 /CMM (0.1-1.30); MONOCYTES % (AUTO) 5.5 % (2.0-12.0); NEUTROPHILS # (AUTO) 9.6 /CMM (1.8-8.9); NEUTROPHILS % (AUTO) 83.7 % (43.0-81.0); PLATELET COUNT (AUTO) 311 /CMM (150-450); RDW COEFFICIENT OF VARIATION 17.7 (11.5-15.0); RED BLOOD CELL COUNT(AUTO) 3.46 MIL/uL (4.0-5.2); WHITE BLOOD COUNT (AUTO) 11.4 K/uL (4.3-11.0)
[2018-02-04 05:51] LABS: CALCIUM, SERUM 8.7 mg/dL (8.5-10.1); CARBON DIOXIDE 32 mmol/L (21-32); CHLORIDE 98 mmol/L (98-107); CREATININE 0.5 mg/dL (0.6-1.3); GLUCOSE 100 mg/dL (74-106); POTASSIUM 3.8 mmol/L (3.5-5.1); SODIUM SERUM 137 mmol/L (136-145); UREA NITROGEN, BLOOD 9 mg/dL (7-18)
--- NOTE | 2018-02-04 06:45 | NUR ---
RN NOTE PATIENT RESTED WELL DURING NIGHT, NO CHANGES NOTED, TURNED AND REPOSITIONED Q 2HOURS, OFFLOADED EXTREMITIES, SPRINGER IS INTACT, NPO, SWALLOW EVALUATION TODAY PER MD ORDER, SR, NO RESPIRATORY DISTRESS NOTED, NO PAIN OR DISCOMFORT NOTED, ALL SAFETY MEASURES TAKEN, CALL LIGHT WITHIN REACH, BED IN THE LOWEST POSITION, SIDE RAILS UP X 2, ALL BELONGINGS WITHIN REACH, BED ALARM ACTIVATED, WILL ENDORSE TO AM SHIFT FOR AUGUST
--- NOTE | 2018-02-04 07:00 | NUR ---
YARD OPERATOR- INITIAL NOTE RECEIVED PT A/O X1, CONFUSED BUT ABLE TO FOLLOW SIMPLE COMMANDS. ON 3L NC, RESPIRATIONS EVEN AND UNLABORED, NO SOB OR DISTRESS PRESENT. BEDSIDE MONITOR REVEALS SINUS RHYTHM. SPRINGER CATHETER PRESENT AND DRAINING TO GRAVITY. YASSINE PICC LINE RUNNING NS @ TKO. PT CURRENTLY NPO AT THIS TIME, PENDING SWALLOW EVAL. SAFETY MEASURES TAKEN. WILL CONTINUE TO MONITOR.
[2018-02-04] MEDS: LACTOBACILLUS RHAMNOSUS GG 1 EACH CAP.SPRINK GT SCH ×2 (08:32→16:24)
[2018-02-04 09:49] LABS: ABG BASE EXCESS 7.3 mmol/L; ABG PH 7.461 (7.350-7.450); ABG PO2 73.4 mmHg (75.0-100.0); COHb 0.3 % (0.5-1.5); MetHb 1.3 % (0.0-1.5); O2Hb 92.5 % (94.0-97.0); SITE, ABG Right Radial; VENT MODE, BG NC 2L
[2018-02-04] MEDS: LEVETIRACETAM SOL (5 ML) 100 MG/ML UDC GT SCH ×4 (11:03→21:58)
[2018-02-04] MEDS: CARVEDILOL 6.25 MG TABLET PO SCH ×3 (14:00→21:58)
--- NOTE | 2018-02-04 14:49 | NUR ---
[facility] RN NOTE RECEIVED REPORT FROM CASA BLAIR
--- NOTE | 2018-02-04 14:50 | NUR ---
BOLT MACHINE OPERATOR- REPORT GIVEN TO POLLY BLAIR. PT TO TRANSFER TO [facility], ROOM 101. 1520- PT TRANSFERRED TO ROOM 101 IN STABLE CONDITION. PT HAD NO BELONGINGS.
--- NOTE | 2018-02-04 15:30 | NUR ---
TD RN NOTES RECEIVED PATIENT A/OX1 FILIPINO SPEAKING ONLY. PLEASANT. NO S/S SOB, DIFFICULTY BREATHING OR PAIN.PATIENT PICC LINE CLEAN DRY AND INTACT. NEEDS ASSESSED. PATIENT APPEARS STABLE AT THIS TIME. SAFETY PRECAUTIONS IN PLACE. WILL ROUND PRN
[2018-02-04] MEDS: CEFTRIAXONE 1 G in IV NS 0.9% 50 ML IV SCH (16:23)
--- NOTE | 2018-02-04 18:56 | NUR ---
TD RN CLOSING PATIENT STABLE. NEEDS ASSESSED. SAFETY PRECAUTIONS IN PLACE. CARE ENDORSED TO RN FOR AUGUST
--- NOTE | 2018-02-04 19:30 | NUR ---
[facility] RN INITIAL NOTE PT RECEIVED AWAKE IN BED. A/O X1 AND DIVEHI SPEAKING. ON 2L OF O2 VIA NC AND SATURATING 97%. BREATHING REGULAR AND UNLABORED. TELE- SR/ST 100. IV YASSINE PICC CLEAN, DRY AND FLUSHING WELL. ON ASPIRATION PRECAUTIONS WITH HOB ELEVATED. SPRINGER CATHETER IN PLACE AND DRAINING BY GRAVITY. BED ALARM ENABLED AND BED IN LOWEST POSITION/ LOCKED IN PLACE. CALL LIGHT WITHIN REACH. WILL CONTINUE TO MONITOR.
--- NOTE | 2018-02-04 22:30 | NUR ---
[facility] RN NOTE PT REFUSED MEDICATIONS. EXPLAINED RISKS AND BENEFITS AND PT STILL REFUSING. WILL CONTINUE TO MONITOR.
[2018-02-05] VITALS: BP 139/78
[2018-02-05] MEDS: BLOOD SUGAR DIAGNOSTIC 1 EACH STRIP IN SCH ×4 (00:37→17:20)
[2018-02-05] MEDS: IPRATROPIUM NEB FS 0.5 MG/2.5 ML AMPUL.NEB NEB SCH ×4 (01:23→19:20)
[2018-02-05] MEDS: ALBUTEROL HALF STRENGTH 1.25 MG/3 ML VIAL.NEB NEB SCH ×4 (01:23→19:20)
[2018-02-05 04:00] VITALS: BP 148/67
[2018-02-05] MEDS: VANCOMYCIN 500 MG in IV D5W 100 ML IV SCH ×2 (05:32→17:19)
--- NOTE | 2018-02-05 07:00 | NUR ---
RN NOTE RECEIVED PT ON BED, A/O X1 AND GUATEMALAN SPEAKING. ON 2L O2 NC, NO SOB NOTED, RESPIRATION EVEN AND UNLABORED, ON TELE SR-ST, YASSINE PICC SITE CDI, HOB ELEVATED, ON ASPIRATION PRECAUTIONS , SPRINGER CATHETER IN PLACE DRAINING TO GRAVITY. SR UPx3, CALL LIGHT WITHIN EASY REACH, BED LOCKED AND IN LOWEST POSITION , WILL CONTINUE TO MONITOR PT CLOSELY.
--- NOTE | 2018-02-05 07:25 | NUR ---
LUCIANA RN CLOSING NOTE PT REMAINED STABLE DURING SHIFT. NO ACUTE DISTRESS NOTED. ALL NEEDS ATTENDED TO PROMPTLY. KEPT CLEAN AND DRY. ISOLATION PRECAUTIONS OBSERVED. HOB ELEVATED. REPOSITIONED Q2H. WILL ENDORSE TO NEXT SHIFT FOR CONTINUITY OF CARE.
[2018-02-05 07:43] LABS: CALCIUM, SERUM 8.7 mg/dL (8.5-10.1); CARBON DIOXIDE 32 mmol/L (21-32); CHLORIDE 97 mmol/L (98-107); CREATININE 0.5 mg/dL (0.6-1.3); GLUCOSE 124 mg/dL (74-106); POTASSIUM 3.7 mmol/L (3.5-5.1); SODIUM SERUM 135 mmol/L (136-145); UREA NITROGEN, BLOOD 8 mg/dL (7-18)
[2018-02-05 08:00] VITALS: BP 145/73
[2018-02-05] MEDS: CARVEDILOL 6.25 MG TABLET PO SCH ×2 (08:40→20:43)
[2018-02-05] MEDS: LACTOBACILLUS RHAMNOSUS GG 1 EACH CAP.SPRINK GT SCH ×2 (08:40→16:01)
[2018-02-05] MEDS: LEVETIRACETAM SOL (5 ML) 100 MG/ML UDC GT SCH ×2 (08:40→20:43)
[2018-02-05] MEDS: INSULIN REGULAR, HUMAN 100 UNIT/ML 3 ML VIAL SQ PRN (11:24)
[2018-02-05 12:00] VITALS: BP 133/61
--- NOTE | 2018-02-05 12:00 | NUR ---
RN NOTES SUPPORTIVE FAMILY AT THE BEDSIDE , PT STABLE , CONTINUE TO MONITOR .
[2018-02-05 16:00] VITALS: BP 134/65
[2018-02-05] MEDS: CEFTRIAXONE 1 G in IV NS 0.9% 50 ML IV SCH (16:01)
--- NOTE | 2018-02-05 17:00 | NUR ---
RN NOTES BG =60 , PT ALERT , NO SIGN AND SYMPTOMS OF HYPOGLYCEMIA NOTED, OJ GIVEN, CONTINUE TO MONITOR .
--- NOTE | 2018-02-05 17:19 | NUR ---
RN NOTES BG=84 AT THIS TIME , NO DISTRESS NOTED, CONTINUE TO MONITOR .
--- NOTE | 2018-02-05 18:11 | NUR ---
RN NOTES PT ALERT , VSS STABLE , RESPIRATION EVEN AND UNLABORED, R UPPER ARM PICC LINE CDI, WILL ENDORSE TO ELECTROMATIC TYPIST NURSE FOR AUGUST .
--- NOTE | 2018-02-05 19:30 | NUR ---
GIS CONSULTANT INITIAL NOTE PT RECEIVED AWAKE IN BED WITH SON AT BEDSIDE. A/O X1 AND CYPRIOT SPEAKING. ON 2L OF O2 VIA NC AND SATURATING 97%. BREATHING REGULAR AND UNLABORED. TELE- SR 90. IV YASSINE PICC CLEAN, DRY AND FLUSHING WELL. ON ASPIRATION PRECAUTIONS WITH HOB ELEVATED. SPRINGER CATHETER IN PLACE AND DRAINING BY GRAVITY. BED ALARM ENABLED AND BED IN LOWEST POSITION/ LOCKED IN PLACE. CALL LIGHT WITHIN REACH. WILL CONTINUE TO MONITOR.
[2018-02-05 20:00] VITALS: BP 151/75
[2018-02-06] VITALS: BP 149/78
[2018-02-06] MEDS: BLOOD SUGAR DIAGNOSTIC 1 EACH STRIP IN SCH ×4 (00:14→16:49)
[2018-02-06] MEDS: ALBUTEROL HALF STRENGTH 1.25 MG/3 ML VIAL.NEB NEB SCH ×4 (01:12→19:52)
[2018-02-06] MEDS: IPRATROPIUM NEB FS 0.5 MG/2.5 ML AMPUL.NEB NEB SCH ×4 (01:12→19:52)
[2018-02-06 04:00] VITALS: BP 146/76
[2018-02-06] MEDS: VANCOMYCIN 500 MG in IV D5W 100 ML IV SCH ×2 (05:14→18:21)
--- NOTE | 2018-02-06 06:52 | NUR ---
POWER ORIGINATOR CLOSING NOTE PT REMAINED STABLE DURING SHIFT. NO ACUTE DISTRESS NOTED. ALL NEEDS ATTENDED TO PROMPTLY. KEPT CLEAN AND DRY. ISOLATION PRECAUTIONS OBSERVED. HOB ELEVATED. REPOSITIONED Q2H. WILL ENDORSE TO NEXT SHIFT FOR CONTINUITY OF CARE.
[2018-02-06 06:53] LABS: CALCIUM, SERUM 8.7 mg/dL (8.5-10.1); CARBON DIOXIDE 33 mmol/L (21-32); CHLORIDE 98 mmol/L (98-107); CREATININE 0.6 mg/dL (0.6-1.3); GLUCOSE 111 mg/dL (74-106); POTASSIUM 3.7 mmol/L (3.5-5.1); SODIUM SERUM 136 mmol/L (136-145); UREA NITROGEN, BLOOD 6 mg/dL (7-18)
--- NOTE | 2018-02-06 07:25 | NUR ---
RN OPEN NOTES RECEIVED REPORT FROM ROLL HAND NURSE. PATIENT IS IN BED. AWAKE BUT CONFUSED. AO TO SELF ONLY. BED IN LOW POSITION, LOCKED AND TWO SIDE RAILS ARE UP FOR SAFETY. CALL LIGHT WITHIN REACH. NO SIGNS AND SYMPTOMS OF DISTRESS. WILL CONTINUE TO ASSESS AND MONITOR PATIENT
[2018-02-06 08:00] VITALS: BP 107/55
[2018-02-06] MEDS: CARVEDILOL 6.25 MG TABLET PO SCH ×2 (08:09→20:05)
[2018-02-06] MEDS: LEVETIRACETAM SOL (5 ML) 100 MG/ML UDC GT SCH ×2 (08:09→20:05)
[2018-02-06] MEDS: LACTOBACILLUS RHAMNOSUS GG 1 EACH CAP.SPRINK GT SCH ×2 (08:09→16:49)
[2018-02-06 12:00] VITALS: BP 116/48
[2018-02-06 16:00] VITALS: BP 129/89
[2018-02-06] MEDS: CEFTRIAXONE 1 G in IV NS 0.9% 50 ML IV SCH (16:12)
[2018-02-06] MEDS: INSULIN REGULAR, HUMAN 100 UNIT/ML 3 ML VIAL SQ PRN (16:55)
--- NOTE | 2018-02-06 19:05 | NUR ---
RN CLOSING NOTES GAVE REPORT TO CUSTOMER SUPPLY COORDINATOR NURSE. PATIENT IS IN BED. AWAKE BUT CONFUSED. AO TO SELF ONLY. BED IN LOW POSITION, LOCKED AND TWO SIDE RAILS ARE UP FOR SAFETY. CALL LIGHT WITHIN REACH. NO SIGNS AND SYMPTOMS OF DISTRESS. ALL NEEDS ANTICIPATED AND ATTENDED FOR. PATIENT KEPT CLEAN, DRY AND SAFE. NO NEW CONCERNS DURING MY SHIFT
--- NOTE | 2018-02-06 19:20 | NUR ---
COST ACCOUNTING ANALYST NOTES RECEIVED PT ON BED AWAKE. A/0X1/ ON TELE MONITOR SR. ON NASAL CANNULA 3L SATURATING WELL. IV ACCESS ON YASSINE PICC TKO. HEAD OF BED ELEVATED. SIDE RAILS UP. CALL LIGHT WITHIN REACH. BED ALARM ON. WILL CONTINUE TO MONITOR PT CLOSELY.
[2018-02-06 20:00] VITALS: BP 138/76
[2018-02-06 20:41] LABS: BASOPHILS % (AUTO) 0.4 % (0.0-2.0); EOSINOPHILS % (AUTO) 1.6 % (0.0-6.0); HEMATOCRIT 32 % (33-45); HEMOGLOBIN 10.7 g/dL (11.5-14.8); LYMPHOCYTES # (AUTO) 1.5 /CMM (0.8-4.8); LYMPHOCYTES % (AUTO) 19.2 % (20.0-44.0); MEAN CORPUSCULAR HGB CONC 34 g/dl (31.0-36.0); MEAN CORPUSCULAR VOLUME 84 fL (82-100); MONOCYTES # (AUTO) 0.7 /CMM (0.1-1.30); MONOCYTES % (AUTO) 8.9 % (2.0-12.0); NEUTROPHILS # (AUTO) 5.4 /CMM (1.8-8.9); NEUTROPHILS % (AUTO) 69.9 % (43.0-81.0); PLATELET COUNT (AUTO) 400 /CMM (150-450); RED BLOOD CELL COUNT(AUTO) 3.78 MIL/uL (4.0-5.2); WHITE BLOOD COUNT (AUTO) 7.8 K/uL (4.3-11.0)
[2018-02-07] VITALS: BP 134/73
[2018-02-07] MEDS: BLOOD SUGAR DIAGNOSTIC 1 EACH STRIP IN SCH ×4 (00:28→17:07)
[2018-02-07] MEDS: ALBUTEROL HALF STRENGTH 1.25 MG/3 ML VIAL.NEB NEB SCH ×4 (01:18→19:41)
[2018-02-07] MEDS: IPRATROPIUM NEB FS 0.5 MG/2.5 ML AMPUL.NEB NEB SCH ×4 (01:18→19:41)
[2018-02-07 04:00] VITALS: BP 129/74
[2018-02-07] MEDS: VANCOMYCIN 500 MG in IV D5W 100 ML IV SCH ×2 (05:46→17:32)
[2018-02-07 06:41] LABS: CALCIUM, SERUM 8.7 mg/dL (8.5-10.1); CARBON DIOXIDE 29 mmol/L (21-32); CHLORIDE 99 mmol/L (98-107); CREATININE 0.6 mg/dL (0.6-1.3); GLUCOSE 112 mg/dL (74-106); POTASSIUM 3.9 mmol/L (3.5-5.1); SODIUM SERUM 136 mmol/L (136-145); UREA NITROGEN, BLOOD 7 mg/dL (7-18)
--- NOTE | 2018-02-07 07:00 | NUR ---
RN NOTES RECEIVED PT ON BED , A/Ox1. RESPIRATION EVEN AND UNLABORED ON O2 AT 3L N/C , NO SOB NOTED, ON TELE SR WITH PAC'S HR IN 80'S , SPRINGER DRAINING TO GRAVITY WITH YELLOW URINE , R UPPER ARM PICC LINE CDI, SR UPx3, CALL LIGHTS WITHIN EASY REACH, BED LOCKED AND IN LOWEST POSITION , WILL CONTINUE TO MONITOR.
[2018-02-07 08:00] VITALS: BP 139/71
[2018-02-07] MEDS: LACTOBACILLUS RHAMNOSUS GG 1 EACH CAP.SPRINK GT SCH ×2 (08:06→16:52)
[2018-02-07] MEDS: CARVEDILOL 6.25 MG TABLET PO SCH ×2 (08:06→21:00)
[2018-02-07] MEDS: LEVETIRACETAM SOL (5 ML) 100 MG/ML UDC GT SCH ×2 (08:06→21:00)
--- NOTE | 2018-02-07 11:16 | NUR ---
RN NOTES [employer] NOTIFIED REGARDING , PSYCH CONSULT WITH DR ARELLANO
--- NOTE | 2018-02-07 11:20 | NUR ---
RN NOTES FACE SHEET FAXED TO [employer] FOR PSYCH CONSULT .
[2018-02-07] MEDS: INSULIN REGULAR, HUMAN 100 UNIT/ML 3 ML VIAL SQ PRN ×2 (11:40→17:07)
[2018-02-07 12:00] VITALS: BP 146/70
--- NOTE | 2018-02-07 12:00 | NUR ---
RN NOTES PT STABLE , SUPPORTIVE AT THE BEDSIDE, CONTINUE TO MONITOR
[2018-02-07 16:00] VITALS: BP 141/76
[2018-02-07] MEDS: CEFTRIAXONE 1 G in IV NS 0.9% 50 ML IV SCH (16:51)
[2018-02-07] MEDS: BOOST GLUCOSE CONTROL VANILLA 237 ML BOX PO SCH (16:52)
[2018-02-07] MEDS ORDERED: MORPHINE SULFATE INJ 4 MG/ML DISP.SYRIN IV PRN (17:00)
--- NOTE | 2018-02-07 17:00 | NUR ---
RN NOTES PT TRIES TO GET OUT OF BED , COMBATIVE AND AGITATED ,REORIENTED TO ROOM AND SURROUNDING , CHARGE NURSE AND CHEMIST INTERN NOTIFIED TO GET A SITTER FOR THE PT .
--- NOTE | 2018-02-07 17:30 | NUR ---
RN NOTES PT CONFUSED AND STILL COMBATIVE AND AGITATED, CONTINUE TO MONITOR .
--- NOTE | 2018-02-07 18:40 | NUR ---
RN NOTES VSS STABLE, RESPIRATION EVEN AND UNLABORED, SPRINGER DRAINING TO GRAVITY WITH YELLOW CLEAR URINE , PT CLAM AT THIS TIME , WILL ENDORSE TO SKINNING MACHINE FEEDER NURSE FOR AUGUST .
[2018-02-07 20:00] VITALS: BP 124/61
[2018-02-08 00:03] VITALS: BP 129/55
[2018-02-08] MEDS: BLOOD SUGAR DIAGNOSTIC 1 EACH STRIP IN SCH ×3 (00:39→12:19)
[2018-02-08] MEDS: IPRATROPIUM NEB FS 0.5 MG/2.5 ML AMPUL.NEB NEB SCH ×3 (01:53→13:36)
[2018-02-08] MEDS: ALBUTEROL HALF STRENGTH 1.25 MG/3 ML VIAL.NEB NEB SCH ×3 (01:53→13:36)
[2018-02-08 04:00] VITALS: BP 110/60
[2018-02-08] MEDS: VANCOMYCIN 500 MG in IV D5W 100 ML IV SCH (05:27)
[2018-02-08 08:00] VITALS: BP 140/70
--- NOTE | 2018-02-08 08:00 | NUR ---
HEAVY TRUCK TECHNICIAN INITIAL NOTES RECEIVED PT IN BED SLEEPING. A/0X1 CONFUSED ARAMNIEN SPEAKING. ON NASAL CANNULA 3LPM SATURATING WELL. ON TELE MONITOR SR 86. IV ACCESS ON PICC LINE PATENT AND INTACT. HEAD OF BED ELEVATED. SIDE RAILS UP SEIZURE PRECAUTION IN PLACE. CALL LIGHT WITHIN REACH. WILL CONTINUE TO MONITOR PT CLOSELY THROUGHOUT THE DAY.
[2018-02-08] MEDS: LEVETIRACETAM SOL (5 ML) 100 MG/ML UDC GT SCH ×2 (09:00→09:01)
[2018-02-08] MEDS: CARVEDILOL 6.25 MG TABLET PO SCH ×2 (09:00→09:02)
[2018-02-08] MEDS: LACTOBACILLUS RHAMNOSUS GG 1 EACH CAP.SPRINK GT SCH ×2 (09:00→09:01)
[2018-02-08] MEDS: BOOST GLUCOSE CONTROL VANILLA 237 ML BOX PO SCH (09:04)
--- NOTE | 2018-02-08 09:23 | NUR ---
RN Note patient refused all morning medications, rn informed the patient of the importance of medication adherence and the usage for the medication patient insisted on not taking the po medications as ordered, rn will continue to monitor
[2018-02-08 09:33] LABS: CALCIUM, SERUM 9.3 mg/dL (8.5-10.1); CARBON DIOXIDE 30 mmol/L (21-32); CHLORIDE 100 mmol/L (98-107); CREATININE 0.7 mg/dL (0.6-1.3); GLUCOSE 108 mg/dL (74-106); POTASSIUM 4.1 mmol/L (3.5-5.1); SODIUM SERUM 136 mmol/L (136-145); UREA NITROGEN, BLOOD 8 mg/dL (7-18)
[2018-02-08 12:00] VITALS: BP 134/70
--- NOTE | 2018-02-08 12:20 | NUR ---
Rn note patient cbg 132 after eating food begain feeding patient prior to cbg check , rn will hold insulin coverage at this time and continue to monitor cbg and signs and symptoms of hyperglycemia
--- NOTE | 2018-02-08 17:30 | NUR ---
RN NOTE RN CONTACTED SNF TO UPDATED OF TRANSFER TO THE UNIT DISCHARGE ORDERS GIVEN UPDATED THE RN Christiane of orders and also patient isolation status. Also informed RN that patient will be on antibiotic until 02/12/18 RN acknowledged understanding.GIAN CALI
--- NOTE | 2018-02-08 18:35 | NUR ---
RN NOTE PATIENT DISCHARGE , REPORT GIVEN TO EMS , EMS CONTACTED SNF TO CONFORM ADMISSION AND REPORT CONTACT STATUS. PATIENT WITHOUT ISSUE AT THIS TIME VITALS STABLE
== END 2018-02-08 18:42 | DRG 870 ==
LOC: ER 13:27 → ICU 14:54 → TELE-TD 02-04 14:58 → TELE1 02-05 08:43
PROVIDERS: ADMIT Nurse Practitioner Acute Care; ATTEND Nurse Practitioner Acute Care
PROC: 5A1955Z Respiratory Ventilation, Greater than 96 Consecutive Hours (ICD-10-PCS; principal; 2018-01-28)
PROC: 0BH18EZ Insertion of Endotracheal Airway into Trachea, Via Natural or Artificial Opening Endoscopic (ICD-10-PCS; 2018-01-28)
PROC: 02HV33Z Insertion of Infusion Device into Superior Vena Cava, Percutaneous Approach (ICD-10-PCS; 2018-01-29)
PROC: 30233N1 Transfusion of Nonautologous Red Blood Cells into Peripheral Vein, Percutaneous Approach (ICD-10-PCS; 2018-01-30)
DX: A41.9 Sepsis, unspecified organism (principal); J69.0 Pneumonitis due to inhalation of food and vomit; E43 Unspecified severe protein-calorie malnutrition; J15.212 Pneumonia due to Methicillin resistant Staphylococcus aureus; J15.0 Pneumonia due to Klebsiella pneumoniae; J96.01 Acute respiratory failure with hypoxia; I11.0 Hypertensive heart disease with heart failure; I50.32 Chronic diastolic (congestive) heart failure; R56.9 Unspecified convulsions; E11.9 Type 2 diabetes mellitus without complications; D50.9 Iron deficiency anemia, unspecified; J44.0 Chronic obstructive pulmonary disease with (acute) lower respiratory infection; F03.90 Unspecified dementia, unspecified severity, without behavioral disturbance, psychotic disturbance, mood disturbance, and anxiety; D72.829 Elevated white blood cell count, unspecified; K21.9 Gastro-esophageal reflux disease without esophagitis; M19.90 Unspecified osteoarthritis, unspecified site; G89.29 Other chronic pain; M54.5 Low back pain; F41.9 Anxiety disorder, unspecified; F32.9 Major depressive disorder, single episode, unspecified; Z86.73 Personal history of transient ischemic attack (TIA), and cerebral infarction without residual deficits; Z87.891 Personal history of nicotine dependence; E03.9 Hypothyroidism, unspecified; Z91.14 Patient's other noncompliance with medication regimen
CPT/HCPCS: 31720; 36415; 36600; 70450-TC; 71045-TC; 80048-TC; 80053-TC; 80061-TC; 80076-TC; 80202-TC; 81000-TC; 82803-TC; 82962-TC; 83735-TC; 84100-TC; 84443-TC; 84484-TC; 85025-TC; 85730-TC; 86850-TC; 86921-TC; 87070-TC; 87081-TC; 87086-TC; 87186-TC; 92526; 92611-TC; 93307-TC; 94002-TC; 94003-TC; 94762-TC; 94799-TC; 99082-TC; A4216; A4606; A9563; C1751; J0696; J1815; J1940; J1953; J2270; J2543; J3370; J3475; J3490; J7030; J7040; J7050; J7060; P9016-BL; Z7610

== ENCOUNTER 2019-09-28 10:35 | Inpatient (IN) | payer MEDICARE, MEDICAID ==
[~2019-09-28] VITALS: Ht 152.4 cm; Wt 45.8 kg
[~2019-09-28 10:35] MED LIST changes: -AMLO5TAB7 PO; +AMLO5TAB9 PO; +BISA10SU11 RC; -BISA10SU8 RC; +CARV12.52 PO; -CARV6.252 PO; -GUAI100S11 PO; -LEVO500T75 PO
[2019-09-28] MEDS ORDERED: Magnesium 1GM/D5W 100ML PREMIX 200 ML IV ONE (10:57)
[2019-09-28] MEDS ORDERED: INSU100V7 SQ (10:58)
[2019-09-28] MEDS ORDERED: LIDO30AD10 TP (10:58)
[2019-09-28] MEDS ORDERED: ASCO500T9 PO (10:58)
[2019-09-28] MEDS ORDERED: SENN-168 PO (10:58)
[2019-09-28] MEDS ORDERED: RISP0.2515 PO (10:58)
[2019-09-28] MEDS ORDERED: FURO-145 PO (10:58)
[2019-09-28] MEDS ORDERED: AMIN30LI2 PO (10:58)
[2019-09-28] MEDS ORDERED: ACET1TAB12 PO (10:58)
[2019-09-28] MEDS ORDERED: LEVE250T2 PO (10:58)
[2019-09-28] MEDS ORDERED: ALBUTEROL FS 2.5 MG/3 ML VIAL.NEB CONTNEB ONE (11:00)
[2019-09-28] MEDS ORDERED: IPRATROPIUM NEB FS 0.5 MG/2.5 ML AMPUL.NEB NEB ONE (11:00)
[2019-09-28 11:19] LABS: BASOPHILS % (AUTO) 0.3 % (0.0-2.0); EOSINOPHILS % (AUTO) 4.8 % (0.0-6.0); HEMATOCRIT 33 % (33-45); HEMOGLOBIN 10.7 g/dL (11.5-14.8); LYMPHOCYTES # (AUTO) 1.4 /CMM (0.8-4.8); MEAN CORPUSCULAR HGB CONC 32 g/dl (31.0-36.0); MEAN CORPUSCULAR VOLUME 95 fL (82-100); MONOCYTES # (AUTO) 0.4 /CMM (0.1-1.30); MONOCYTES % (AUTO) 7.8 % (2.0-12.0); NEUTROPHILS # (AUTO) 3.2 /CMM (1.8-8.9); NEUTROPHILS % (AUTO) 61.1 % (43.0-81.0); PLATELET COUNT (AUTO) 219 /CMM (150-450); WHITE BLOOD COUNT (AUTO) 5.3 K/uL (4.3-11.0)
[2019-09-28] MEDS ORDERED: Magnesium 1GM/D5W 100ML PREMIX 100 ML IV ONE (11:21)
[2019-09-28] MEDS ORDERED: ALBUTEROL FS 2.5 MG/3 ML VIAL.NEB ONE (11:24)
[2019-09-28] MEDS ORDERED: IPRATROPIUM NEB FS 0.5 MG/2.5 ML AMPUL.NEB ONE (11:24)
--- NOTE | 2019-09-28 11:30 | NUR ---
Patient awake alert to name her family @ bedside made aware paln of care
--- NOTE | 2019-09-28 11:44 | NUR ---
called RN sup for bed, waiting for bed assignment
[2019-09-28 11:45] LABS: ALANINE AMINOTRANSFERASE 15 U/L (12-78); ALBUMIN 2.9 g/dL (3.4-5.0); ALKALINE PHOSPHATASE 55 U/L (46-116); ASPARTATE AMINOTRANSFERASE 10 U/L (15-37); B-TYPE NATRIURETIC PEPTIDE 179 PG/ML (0-125); BILIRUBIN,DIRECT 0.1 mg/dL (0.0-0.2); BILIRUBIN,TOTAL 0.3 mg/dL (0.2-1.0); CALCIUM, SERUM 9.5 mg/dL (8.5-10.1); CHLORIDE 102 mmol/L (98-107); CREATININE 0.6 mg/dL (0.6-1.3); GLUCOSE 108 mg/dL (74-106); POTASSIUM 4.3 mmol/L (3.5-5.1); SODIUM SERUM 142 mmol/L (136-145); TOTAL PROTEIN, SERUM 7.1 g/dL (6.4-8.2); UREA NITROGEN, BLOOD 13 mg/dL (7-18)
[2019-09-28 11:47] LABS: CARBON DIOXIDE 43 mmol/L (21-32)
--- NOTE | 2019-09-28 12:03 | NUR ---
still waiting for tele bed
--- NOTE | 2019-09-28 12:04 | NUR ---
Patient on O2 @ 3 family statees shes 24/ o2 @ facility her lungs wheezing breathing treatment done Rt @ bedside for ABg
--- NOTE | 2019-09-28 12:11 | NUR ---
[id number] tele nurse Kaila
--- NOTE | 2019-09-28 12:30 | NUR ---
[facility] paged for panel call w/ Dr. Olivarez
[2019-09-28 12:42] LABS: ABG BASE EXCESS 11.9 mmol/L; ABG OXYGEN SATURATION 90.6 % (92.0-98.5); ABG PCO2 74.3 mmHg (35.0-45.0); ABG PH 7.351 (7.350-7.450); ABG PO2 61.7 mmHg (75.0-100.0); AaDO2 50.3 mmHg; COHb 0.2 % (0.5-1.5); MetHb 0.3 % (0.0-1.5); O2Hb 90.1 % (94.0-97.0); SITE, ABG Left Radial; VENT MODE, BG 2L NC
--- NOTE | 2019-09-28 12:55 | NUR ---
RT ABG DONE PLACED PT ON BIPAP PER MD ORDERS 19/03 RR12 Addendum: 09/28/19 at 1552 by GIO TANNER RT Amended: Links added.
--- NOTE | 2019-09-28 12:58 | NUR ---
EPIC paged again waiting for panel call
--- NOTE | 2019-09-28 13:18 | NUR ---
EPIC paged again
--- NOTE | 2019-09-28 13:18 | NUR ---
Patient on Bipap noted tolerated well 95% ,no family @ bedside @ this time
--- NOTE | 2019-09-28 13:29 | NUR ---
panel call in progress
--- NOTE | 2019-09-28 13:39 | NUR ---
ok to place mcnamara cath in and out per Md family agrees and prep observed sterile technique urine obtined and send to lab assited by JAYSON bender
[2019-09-28] MEDS ORDERED: methylPREDNISolone SOD SUCC 125 MG/2ML VIAL ONE (14:17)
--- NOTE | 2019-09-28 14:21 | NUR ---
Given report to Barb Bardales 253
[2019-09-28] MEDS ORDERED: methylPREDNISolone SOD SUCC 125 MG/2ML VIAL IV ONE ×2 (14:30→16:00)
--- NOTE | 2019-09-28 14:35 | NUR ---
Trasfer to ICU patient is non distress vitals taken and filed transfeer with monitor
[2019-09-28 15:02] VITALS: BP 127/57
[2019-09-28 16:00] VITALS: BP 127/57
[2019-09-28] MEDS ORDERED: ONDANSETRON HCL/PF 4 MG/2 ML VIAL IVP PRN (16:00)
[2019-09-28] MEDS: IPRATROPIUM NEB FS 0.5 MG/2.5 ML AMPUL.NEB NEB SCH ×3 (16:00→23:41)
[2019-09-28] MEDS ORDERED: AZITHROMYCIN 250 MG TABLET PO ONE (16:00)
[2019-09-28] MEDS ORDERED: Z GUARD REMEDY 2 OZ OINT TP PRN (16:00)
[2019-09-28] MEDS ORDERED: DEXTROSE 50%-WATER 50 ML DISP.SYRIN IV PRN (16:00)
[2019-09-28] MEDS ORDERED: ACETAMINOPHEN 325 MG TABLET PO PRN (16:00)
[2019-09-28] MEDS ORDERED: ACETAMINOPHEN W/ CODEINE#3 1 EA TABLET PO PRN (16:00)
[2019-09-28] MEDS: ALBUTEROL FS 2.5 MG/0.5 ML VIAL.NEB NEB SCH ×3 (16:00→23:41)
[2019-09-28] MEDS: BLOOD SUGAR DIAGNOSTIC 1 EACH STRIP IN SCH ×2 (17:08→21:40)
[2019-09-28] MEDS: FUROSEMIDE 20 MG TABLET PO SCH (17:09)
[2019-09-28] MEDS: LEVETIRACETAM (250 MG) 250 MG TABLET PO SCH (17:09)
[2019-09-28] MEDS: INSULIN REGULAR, HUMAN 100 UNIT/ML 3 ML VIAL SQ PRN (17:10)
--- NOTE | 2019-09-28 18:17 | NUR ---
RN NOTE Pt brought up at this time from ICU in stable condition. Awake and Alert x1-2, Breathing even and unlabored on 2l via nc, no s/s of any distress or pain noted at this time, iv is patent and intact saline lock, scottish speaking, safety precautions in, call light in reach, will endorse to night rn for jody.
[2019-09-28 18:23] VITALS: BP 118/52
[2019-09-28 20:00] VITALS: BP 128/86
[2019-09-28] MEDS: risperiDONE 0.25 MG TABLET PO SCH (21:40)
[2019-09-28] MEDS: SENNOSIDES 8.6 MG TABLET PO SCH (21:40)
[2019-09-28] MEDS: methylPREDNISolone SOD SUCC 40 MG/ML VIAL IV SCH (21:40)
[2019-09-28] MEDS: ENOXAPARIN SODIUM 40 MG/0.4 ML DISP.SYRIN SQ SCH (21:41)
[2019-09-28] MEDS: INSULIN GLARGINE, 100 UNIT/ML CARTRIDGE SQ SCH (21:44)
--- NOTE | 2019-09-28 23:13 | NUR ---
PRINCIPAL ASSOCIATE NOTES RECEIVED PT IN BED ASLEEP BUT EASILY AWOKEN VERBALLY OR BY TOUCH. PT A/O X1-2 AND TRINIDADIAN SPEAKING. RESPIRATIONS EVEN AND UNLABORED WITH NO S/S OF ACUTE DISTRESS OR SOB NOTED. NO COMPLAINTS OF PAIN AT THIS TIME. PT WITH RWRIST #22G PATENT AND INTACT AND SL. SAFETY MEASURES IN PLACE WITH BED IN LOWEST LOCKED POSITION WITH SIDE RAILS UP X2. CALL LIGHT WITHIN REACH. WILL CONTINUE TO MONITOR. Addendum: 09/28/19 at 8097 by SUZE CAMPOS RN [id number]
[2019-09-29] VITALS: BP 117/56
[2019-09-29] MEDS: BLOOD SUGAR DIAGNOSTIC 1 EACH STRIP IN SCH ×6 (01:18→21:30)
[2019-09-29] MEDS: INSULIN REGULAR, HUMAN 100 UNIT/ML 3 ML VIAL SQ PRN ×4 (01:23→21:45)
[2019-09-29] MEDS: IPRATROPIUM NEB FS 0.5 MG/2.5 ML AMPUL.NEB NEB SCH ×6 (03:52→23:32)
[2019-09-29] MEDS: ALBUTEROL FS 2.5 MG/0.5 ML VIAL.NEB NEB SCH ×6 (03:52→23:32)
[2019-09-29 04:43] VITALS: BP 117/56
[2019-09-29 06:35] LABS: BASOPHILS % (AUTO) 0.1 % (0.0-2.0); HEMATOCRIT 33 % (33-45); HEMOGLOBIN 10.6 g/dL (11.5-14.8); LYMPHOCYTES # (AUTO) 0.5 /CMM (0.8-4.8); LYMPHOCYTES % (AUTO) 25.2 % (20.0-44.0); MEAN CORPUSCULAR HGB CONC 33 g/dl (31.0-36.0); MEAN CORPUSCULAR VOLUME 93 fL (82-100); MONOCYTES # (AUTO) 0.1 /CMM (0.1-1.30); MONOCYTES % (AUTO) 4.3 % (2.0-12.0); NEUTROPHILS # (AUTO) 1.3 /CMM (1.8-8.9); NEUTROPHILS % (AUTO) 70.4 % (43.0-81.0); PLATELET COUNT (AUTO) 226 /CMM (150-450); RED BLOOD CELL COUNT(AUTO) 3.51 MIL/uL (4.0-5.2)
[2019-09-29 06:49] LABS: THYROID STIMULATING HORMONE 1.081 uIU/mL (0.358-3.74)
[2019-09-29 06:52] LABS: BILIRUBIN,TOTAL 0.2 mg/dL (0.2-1.0); CALCIUM, SERUM 8.8 mg/dL (8.5-10.1); CREATININE 0.6 mg/dL (0.6-1.3); MAGNESIUM 2.1 mg/dL (1.8-2.4); PHOSPHORUS 3.6 mg/dL (2.5-4.9); POTASSIUM 4.2 mmol/L (3.5-5.1); TOTAL PROTEIN, SERUM 7.3 g/dL (6.4-8.2)
--- NOTE | 2019-09-29 07:00 | NUR ---
AREA FIELD PERSON NOTES PT IN BED AND AWAKE. PT A/O X1-2 AND CITIZEN OF [place] SPEAKING. RESPIRATIONS EVEN AND UNLABORED WITH NO S/S OF ACUTE DISTRESS OR SOB NOTED THROUGHOUT SHIFT. PT KEPT CLEAN, DRY, AND COMFORTABLE. TURNED PT Q2 HRS THROUGHOUT SHIFT. NO COMPLAINTS OF PAIN AT THIS TIME. PT WITH RWRIST #22G PATENT AND INTACT AND SL. SAFETY MEASURES IN PLACE WITH BED IN LOWEST LOCKED POSITION WITH SIDE RAILS UP X2. CALL LIGHT WITHIN REACH. WILL ENDORSE TO ONCOMING NURSE FOR AUGUST.
--- NOTE | 2019-09-29 07:30 | NUR ---
RECEIVED PATIENT AWAKE ORIENTED X1. IV ASSESS OCCLUDED, AND REMOVED.
[2019-09-29 07:31] LABS: WHITE BLOOD COUNT (AUTO) 1.8 K/uL (4.3-11.0)
[2019-09-29 08:00] VITALS: BP 117/56
[2019-09-29 08:07] VITALS: BP 117/55
[2019-09-29] MEDS: FUROSEMIDE 20 MG TABLET PO SCH (08:08)
[2019-09-29] MEDS: PANTOPRAZOLE 40 MG TABLET.DR PO SCH (08:08)
[2019-09-29] MEDS: LINAGLIPTIN 5 MG TABLET PO SCH (08:08)
[2019-09-29] MEDS: LEVETIRACETAM (250 MG) 250 MG TABLET PO SCH ×2 (08:08→16:40)
[2019-09-29] MEDS: ASCORBIC ACID 500 MG TABLET PO SCH (08:08)
[2019-09-29] MEDS: methylPREDNISolone SOD SUCC 40 MG/ML VIAL IV SCH ×3 (08:08→16:40)
[2019-09-29] MEDS: risperiDONE 0.25 MG TABLET PO SCH ×2 (08:17→21:34)
[2019-09-29] MEDS: LIDOCAINE 5% (PATCH) 1 EA PATCH TP SCH (08:33)
[2019-09-29 09:22] LABS: LYMPHOCYTES % (MANUAL) 25 % (16-48); MONOCYTES % (MANUAL) 4 % (0-11.0); NEUTROPHILS % (MANUAL) 71 (42-76)
[2019-09-29 11:06] LABS: ABG BASE EXCESS 11.6 mmol/L; ABG PCO2 66.1 mmHg (35.0-45.0); ABG PH 7.388 (7.350-7.450); ABG PO2 56.4 mmHg (75.0-100.0); AaDO2 65.2 mmHg; COHb 0.4 % (0.5-1.5); MetHb 0.4 % (0.0-1.5); O2Hb 88.3 % (94.0-97.0); SITE, ABG Left Radial; VENT MODE, BG 2LNC
--- NOTE | 2019-09-29 11:48 | NUR ---
A NEW IV ASSESS TO THE LEFT ARM 22 G, FLUSHING WELL.
--- NOTE | 2019-09-29 12:00 | NUR ---
Patient family refusing Regular insulin coverage. Per family BS level may drops significantly
[2019-09-29 16:00] VITALS: BP 114/55
[2019-09-29] MEDS: AZITHROMYCIN 250 MG TABLET PO SCH (16:40)
--- NOTE | 2019-09-29 18:22 | NUR ---
patient awake and oriented x1, confused. Patient stable and on room air, breathing treatment Q4hr. All needs attended, patient turned and repositioned Q2hr. Patient kept clean and dry. Safety precautions implemented and call light within reach. Will endorse to next shift for AUGUST
--- NOTE | 2019-09-29 19:35 | NUR ---
MS/RN OPENING NOTES: RECEIVED PATIENT IN BED AWAKE AND STABLE. A/O X1 AND EMIRATI SPEAKING. NO SOB NOTED. ON 2L OF OXYGEN VIA NC. RESPIRATIONS EVEN AND UNLABORED WITH NO S/S OF ACUTE DISTRESS. NO COMPLAINTS OF PAIN AT THIS TIME. ON CARDIAC DIET IV ACCESS ON LEFT ARM #22G SL. INTACT, PATENT AND FLUSHING WELL. SAFETY MEASURES IN PLACE WITH BED IN LOWEST LOCKED POSITION WITH SIDE RAILS UP X2. CALL LIGHT WITHIN REACH. WILL CONTINUE TO MONITOR ACCORDINGLY.
[2019-09-29 20:00] VITALS: BP 139/67
[2019-09-29] MEDS: ENOXAPARIN SODIUM 40 MG/0.4 ML DISP.SYRIN SQ SCH (21:33)
[2019-09-29] MEDS: SENNOSIDES 8.6 MG TABLET PO SCH (21:34)
[2019-09-29] MEDS: INSULIN GLARGINE, 100 UNIT/ML CARTRIDGE SQ SCH (22:22)
[2019-09-30] MEDS: BLOOD SUGAR DIAGNOSTIC 1 EACH STRIP IN SCH ×6 (01:24→21:44)
[2019-09-30] MEDS: INSULIN REGULAR, HUMAN 100 UNIT/ML 3 ML VIAL SQ PRN ×3 (02:06→21:46)
[2019-09-30] MEDS: IPRATROPIUM NEB FS 0.5 MG/2.5 ML AMPUL.NEB NEB SCH ×6 (03:42→23:26)
[2019-09-30] MEDS: ALBUTEROL FS 2.5 MG/0.5 ML VIAL.NEB NEB SCH ×6 (03:42→23:26)
--- NOTE | 2019-09-30 05:16 | NUR ---
MS RN NOTES: PATIENT'S BLOOD SUGAR CHECK DONE AT 0500. BLOOD SUGAR LEVEL OF 69. NO UNITS OF INSULIN GIVEN PER SLIDING SCALE. GAVE PATIENT A CARTON OF JUICE. WILL CONTINUE TO MONITOR ACCORDINGLY.
--- NOTE | 2019-09-30 06:17 | NUR ---
MS/RN CLOSING NOTES: PATIENT IS AWAKE IN BED AWAKE. A/O X1 AND HAITIAN SPEAKING. NO SOB NOTED. NO SIGNIFICANT CHANGES IN CONDITION. ON 2L OF OXYGEN VIA NC. RESPIRATIONS EVEN AND UNLABORED WITH NO S/S OF ACUTE DISTRESS. NO COMPLAINTS OF PAIN AT THIS TIME. KEPT PATIENT WARM AND COMFORTABLE IN BED. ON CARDIAC SOFT DIET. ALL DUE MEDS GIVEN ORDERED. TOLERATED WELL. IV ACCESS ON LEFT ARM #22G SL. INTACT, PATENT AND FLUSHING WELL. PATIENT TURNED EVERY 2HRS. KEPT PATIENT CLEAN AND DRY AT ALL TIMES. SAFETY MEASURES ARE KEPT IN PLACE WITH HOB ELEVATED AND BED IN LOWEST LOCKED POSITION WITH SIDE RAILS UP X2. CALL LIGHT WITHIN EASY REACH OF THE PATIENT. WILL ENDORSE TO DAY SHIFT NURSE FOR AUGUST.
[2019-09-30 08:00] VITALS: BP_SYST 129; BP_SYST 139; BP_DIAS 68
--- NOTE | 2019-09-30 08:00 | NUR ---
RN NOTES RECEIVED PATIENT IN THE BED ON O2-2L NC. NO ACUTE RESPIRATORY DISTRESS. PATIENT CONFUSED, WHEN TRYING TO CHANGE DIAPER PATIENT SCRATCHED, AND TRYING TO PUT NAILS IN THE SKIN. ADMINISTERED SCHEDULED MEDICATION, BS -82MG/DL, PATIENT TOTAL CARE, ASSIST EATING BY CENTER CONSULTANT, MONITORING ASPIRATION PRECAUTION KEEP HOB ELEVATED. ASSIST TURN AND REPOSTION Q 2 HR. PATIENT INCONTINENT, APPLIED Z-GUARD. ADMINISTERED SCHEDULED MEDICATION.PATIENT WAS REFUSED PAIN. IV ACCESS ON LEFT ARM INTACT SL. CALL LIGHT WITHIN TO REACH. CONTINUED MONITORING.
[2019-09-30 08:26] LABS: CALCIUM, SERUM 9.1 mg/dL (8.5-10.1); CREATININE 0.6 mg/dL (0.6-1.3); POTASSIUM 3.9 mmol/L (3.5-5.1)
--- NOTE | 2019-09-30 08:30 | NUR ---
RN NOTES RECEIVED CALL FROM LAB CO2 40 IN THE BLOOD, CALLED AND NOTIFIED Dr MARTI. PER HOSPITALIST WILL LOOK AND PUT ORDER. PATIENT STABLE ON O2-2L NC AND GETTING BREATHING TREATMENT AT THIS TIME, NO ACUTE RESPIRATORY DISTRESS, NO SOB. CONTINUED MONITORING.
[2019-09-30 08:33] LABS: BILIRUBIN,TOTAL 0.2 mg/dL (0.2-1.0); MAGNESIUM 1.9 mg/dL (1.8-2.4); PHOSPHORUS 2.1 mg/dL (2.5-4.9)
[2019-09-30 08:44] LABS: BASOPHILS % (AUTO) 0.1 % (0.0-2.0); EOSINOPHILS % (AUTO) 0.4 % (0.0-6.0); HEMATOCRIT 33 % (33-45); LYMPHOCYTES # (AUTO) 1.3 /CMM (0.8-4.8); LYMPHOCYTES % (AUTO) 24.7 % (20.0-44.0); MEAN CORPUSCULAR HGB CONC 33 g/dl (31.0-36.0); MEAN CORPUSCULAR VOLUME 93 fL (82-100); MONOCYTES # (AUTO) 0.6 /CMM (0.1-1.30); MONOCYTES % (AUTO) 12.6 % (2.0-12.0); NEUTROPHILS # (AUTO) 3.2 /CMM (1.8-8.9); NEUTROPHILS % (AUTO) 62.2 % (43.0-81.0); PLATELET COUNT (AUTO) 217 /CMM (150-450); RED BLOOD CELL COUNT(AUTO) 3.59 MIL/uL (4.0-5.2); WHITE BLOOD COUNT (AUTO) 5.1 K/uL (4.3-11.0)
[2019-09-30] MEDS: risperiDONE 0.25 MG TABLET PO SCH ×2 (09:02→21:50)
[2019-09-30] MEDS: PANTOPRAZOLE 40 MG TABLET.DR PO SCH (09:03)
[2019-09-30] MEDS: ASCORBIC ACID 500 MG TABLET PO SCH (09:03)
[2019-09-30] MEDS: LINAGLIPTIN 5 MG TABLET PO SCH (09:03)
[2019-09-30] MEDS: LEVETIRACETAM (250 MG) 250 MG TABLET PO SCH ×2 (09:03→16:27)
[2019-09-30] MEDS: methylPREDNISolone SOD SUCC 40 MG/ML VIAL IV SCH ×3 (09:04→16:27)
[2019-09-30] MEDS: LIDOCAINE 5% (PATCH) 1 EA PATCH TP SCH (09:11)
[2019-09-30] MEDS ORDERED: AZIT250T PO (10:53)
[2019-09-30] MEDS ORDERED: ALLA266C2 TP (10:53)
[2019-09-30] MEDS ORDERED: PRED20TA PO ×2 (10:53→10:54)
[2019-09-30] MEDS ORDERED: IPRA0.2S9 NEB (10:53)
[2019-09-30] MEDS ORDERED: ALBU2.5V13 NEB (10:53)
[2019-09-30] MEDS ORDERED: NEUTRA PHOS 1 POWD.PACKET PO ONE (12:30)
--- NOTE | 2019-09-30 13:03 | NUR ---
MS RN NOTES BS-101 MG/DL, NO COVERAGE GIVEN, ADMINISTERED SCHEDULED MEDICATION, ASSIST EATING, ASSIST TURN AND REPOSTION Q 2 HR.
[2019-09-30 16:00] VITALS: BP 132/56
[2019-09-30] MEDS: AZITHROMYCIN 250 MG TABLET PO SCH (16:25)
--- NOTE | 2019-09-30 18:00 | NUR ---
RN NOTES BS190 MG/DL, ADMINISTERED SCHEDULED MEDICATION CRUSHED AND MIXED WITH PUDDING, NOT INSULIN COVERAGE GIVEN BECAUSE PATIENT EAT 10 TO 15 % WITH ASSIST. PATIENT TOTAL CARE, ASSIST TURN AND REPOSITION Q 2 HR. PATIENT CONFUSED, GET IRRITABLE EASILY, TRYING TO SCRATCH, AND BITE. CALL LIGHT WITHIN TO REACH. SAFETY PRECAUTION MAINTAINED ALL THE TIME.
--- NOTE | 2019-09-30 18:40 | NUR ---
RN NOTES RECEIVED CALL FROM MICROBIOLOGY PATIENT BLOOD CULTURE RESULT GRAM POSITIVE COCCI WITH CLUSTERS, NOTIFIED RESULT ID ADOLPH YARD WORKER WILL FOLLOW UP.
--- NOTE | 2019-09-30 19:25 | NUR ---
MS/RN OPENING NOTES: RECEIVED PATIENT IN BED ASLEEP. IN STABLE CONDITION. A/O X1 WITH EPISODES CONFUSION. GERMAN SPEAKING. NO SOB NOTED. ON 2L OF OXYGEN VIA NC. RESPIRATIONS EVEN AND UNLABORED WITH NO S/S OF ACUTE DISTRESS. NO COMPLAINTS OF PAIN AT THIS TIME. ON CARDIAC DIET. IV ACCESS ON LEFT ARM #22G SL. INTACT, PATENT AND FLUSHING WELL. PATIENT WILL BE DISCHARGED TOMORROW MORNING. SON IS AWARE. SAFETY MEASURES IN PLACE WITH BED IN LOWEST LOCKED POSITION WITH SIDE RAILS UP X2. CALL LIGHT WITHIN REACH. WILL CONTINUE TO MONITOR ACCORDINGLY.
[2019-09-30 19:50] VITALS: BP 130/57
[2019-09-30 20:00] VITALS: BP 130/57
[2019-09-30] MEDS: ENOXAPARIN SODIUM 40 MG/0.4 ML DISP.SYRIN SQ SCH (21:49)
[2019-09-30] MEDS: SENNOSIDES 8.6 MG TABLET PO SCH (21:50)
[2019-09-30] MEDS: INSULIN GLARGINE, 100 UNIT/ML CARTRIDGE SQ SCH (22:13)
[2019-10-01] MEDS: BLOOD SUGAR DIAGNOSTIC 1 EACH STRIP IN SCH ×4 (00:56→13:16)
[2019-10-01] MEDS: INSULIN REGULAR, HUMAN 100 UNIT/ML 3 ML VIAL SQ PRN ×2 (01:01→13:18)
[2019-10-01] MEDS: ALBUTEROL FS 2.5 MG/0.5 ML VIAL.NEB NEB SCH ×5 (03:26→15:30)
[2019-10-01] MEDS: IPRATROPIUM NEB FS 0.5 MG/2.5 ML AMPUL.NEB NEB SCH ×5 (03:26→15:30)
--- NOTE | 2019-10-01 05:09 | NUR ---
MS RN NOTES: PATIENT'S BLOOD SUGAR CHECK DONE AT 0504. BLOOD SUGAR LEVEL OF 64. NO INSULIN NEEDED PER INSULIN SLIDING SCALE OR DEXTROSE NEEDED AT THIS TIME PER MD ORDER. GAVE PATIENT ORANGE JUICE. TOLERATED WELL. PATIENT IS IN A STABLE CONDITION. WILL CONTINUE TO MONITOR BLOOD SUGAR.
[2019-10-01 06:34] LABS: HEMATOCRIT 36 % (33-45); HEMOGLOBIN 11.6 g/dL (11.5-14.8); LYMPHOCYTES # (AUTO) 0.9 /CMM (0.8-4.8); LYMPHOCYTES % (AUTO) 22.3 % (20.0-44.0); MEAN CORPUSCULAR HGB CONC 33 g/dl (31.0-36.0); MEAN CORPUSCULAR VOLUME 93 fL (82-100); MONOCYTES # (AUTO) 0.4 /CMM (0.1-1.30); MONOCYTES % (AUTO) 9.6 % (2.0-12.0); NEUTROPHILS # (AUTO) 2.8 /CMM (1.8-8.9); NEUTROPHILS % (AUTO) 68.1 % (43.0-81.0); PLATELET COUNT (AUTO) 238 /CMM (150-450); RED BLOOD CELL COUNT(AUTO) 3.81 MIL/uL (4.0-5.2); WHITE BLOOD COUNT (AUTO) 4.1 K/uL (4.3-11.0)
--- NOTE | 2019-10-01 06:46 | NUR ---
MS/RN CLOSING NOTES: PATIENT IS AWAKE AND STABLE IN BED. VERBALLY RESPONSIVE. ALBANIAN SPEAKING. A/O X1 WITH CONFUSION. NO SOB NOTED. ON 2L OF OXYGEN VIA NC. HOB ELEVATED. RESPIRATIONS EVEN AND UNLABORED WITH NO S/S OF ACUTE DISTRESS. ALL DUE MEDS GIVEN ORDERED. TOLERATED WELL. KEPT PATIENT WARM AND COMFORTABLE IN BED THROUGHOUT THE SHIFT. REPOSITIONED PT Q2HRS. NO COMPLAINTS OF PAIN AT THIS TIME. IV ACCESS ON LEFT ARM #22G SL. INTACT, PATENT AND FLUSHING WELL. KEPT PATIENT CLEAN AND DRY AT ALL TIMES. PATIENT WILL BE DISCHARGED THIS MORNING. SON IS AWARE. ALL NURSING NEEDS MET AND ATTENDED. SAFETY MEASURES KEPT IN PLACE WITH BED IN LOWEST LOCKED POSITION WITH SIDE RAILS UP X2. CALL LIGHT WITHIN REACH. WILL ENDORSE TO DAY SHIFT FOR AUGUST.
[2019-10-01 06:56] LABS: CALCIUM, SERUM 9.1 mg/dL (8.5-10.1); CREATININE 0.7 mg/dL (0.6-1.3); MAGNESIUM 2.2 mg/dL (1.8-2.4); PHOSPHORUS 2.9 mg/dL (2.5-4.9); POTASSIUM 4.4 mmol/L (3.5-5.1)
--- NOTE | 2019-10-01 07:10 | NUR ---
MS RN NOTES PATIENT IN BED EYES CLOSED EASY TO AROUSE, RESPOND TO VERBAL AND TACTILE STIMULI. NO ACUTE DISTRESS NOTED, BREATHING UNLABORED. SAFETY MEASURES IN PLACE. CALL LIGHT WITHIN REACH. WILL CONTINUE TO MONITOR ACCORDINGLY.
[2019-10-01] MEDS: PANTOPRAZOLE 40 MG TABLET.DR PO SCH (07:36)
[2019-10-01 08:00] VITALS: BP 125/88
[2019-10-01] MEDS: risperiDONE 0.25 MG TABLET PO SCH (08:46)
[2019-10-01] MEDS: LEVETIRACETAM (250 MG) 250 MG TABLET PO SCH (08:46)
[2019-10-01] MEDS: ASCORBIC ACID 500 MG TABLET PO SCH (08:47)
[2019-10-01] MEDS: LINAGLIPTIN 5 MG TABLET PO SCH (08:47)
[2019-10-01] MEDS: LIDOCAINE 5% (PATCH) 1 EA PATCH TP SCH (08:47)
[2019-10-01] MEDS: methylPREDNISolone SOD SUCC 40 MG/ML VIAL IV SCH ×2 (08:47→12:25)
--- NOTE | 2019-10-01 09:45 | NUR ---
MS RN NOTES PATIENT REFUSED INSULIN ADMINISTRATION AT THIS TIME DESPITE OF EXPLANATION OF RISK AND BENEFITS.
[2019-10-01] MEDS: AZITHROMYCIN 250 MG TABLET PO SCH (15:37)
--- NOTE | 2019-10-01 16:00 | NUR ---
MS RN NOTES PATIENT DISCHARGE TO [place] WITH STABLE VITAL SIGNS. NO ACUTE DISTRESS NOTED, BREATHING UNLABORED. NO SOB NOTED. IV ACCESS REMOVED, NO BLEEDING, NO REDNESS, NO SWELLING NOTED. DISCHARGE INSTRUCTIONS GIVEN TO [place] NURSE. DISCHARGE PAPERS HANDED OVER TO EMT PERSONNEL TO BE GIVE TO THE NURSE. ALL BELONGINGS ACCOUNTED FOR. PICKED UP VIA AMBULANCE IN A GURNEY ACCOMPANIED BY 2 EMT PERSONNEL IN STABLE CONDITION.
== END 2019-10-01 17:34 | DRG 189 ==
LOC: ER 10:40 → TELE 12:12 → ICU 13:56 → TELE 18:13 → MED 09-29 08:28
PROVIDERS: ADMIT Nurse Practitioner Acute Care; ATTEND Student in an Organized Health Care Education/Training Program
PROC: 5A09357 Assistance with Respiratory Ventilation, Less than 24 Consecutive Hours, Continuous Positive Airway Pressure (ICD-10-PCS; principal; 2019-09-28)
DX: J96.02 Acute respiratory failure with hypercapnia (principal); J44.1 Chronic obstructive pulmonary disease with (acute) exacerbation; J98.11 Atelectasis; I50.32 Chronic diastolic (congestive) heart failure; E44.0 Moderate protein-calorie malnutrition; Z68.1 Body mass index [BMI] 19.9 or less, adult; I11.0 Hypertensive heart disease with heart failure; K21.9 Gastro-esophageal reflux disease without esophagitis; M19.90 Unspecified osteoarthritis, unspecified site; E11.9 Type 2 diabetes mellitus without complications; F03.90 Unspecified dementia, unspecified severity, without behavioral disturbance, psychotic disturbance, mood disturbance, and anxiety; F29 Unspecified psychosis not due to a substance or known physiological condition; D64.9 Anemia, unspecified; R56.9 Unspecified convulsions; D70.9 Neutropenia, unspecified; Z99.81 Dependence on supplemental oxygen
CPT/HCPCS: 36415; 36600; 71045-TC; 80048-TC; 80053-TC; 80061-TC; 80076-TC; 82803-TC; 82962-TC; 83540-TC; 83605-TC; 83735-TC; 83880; 84100-TC; 84443-TC; 84484-TC; 85025-TC; 87040-TC; 87081-TC; 93307-TC; 94799-TC; G0378; J1650; J1815; J2920; J2930; J3475